=== PATIENT | male | born 1950 | race Caucasian/White ===

== ENCOUNTER 2018-10-10 13:04 | Inpatient (IN) ==
--- NOTE | 2018-10-10 13:23 | ED ---
HPI General Chief Complaint: Hypertension Stated Complaint: neck/back pain Time Seen by Provider: 10/10/18 13:20 Source: patient Mode of arrival: ambulatory Limitations: no limitations History of Present Illness HPI Narrative: Patient comes in complaining of upper back pain between his shoulder blades that he rates at about a 3 out of 10 states there is a dull sensation. Patient states that he has started working out and thinks that maybe he worked out too hard. However his major concern is his blood pressure has been elevated 201 systolic over the last day or so.... despite amlodipine and lisinopril. pcp is dr fabrice talbot. Complaint: Reports back pain Related Data Home Medications Medication Instructions Recorded Confirmed amlodipine 5 mg PO HS 10/10/18 10/10/18 pravastatin 40 mg PO HS 10/10/18 10/10/18 Allergies Allergy/AdvReac Type Severity Reaction Status Date / Time No Known Allergies Allergy Verified 10/10/18 13:20 Review of Systems ROS: all other systems reviewed are negative PMFSH History History Provided By: Patient Medical History Medical History Hypertension (Acute) Social History Social History Substance History: No History of Abuse Second Hand Smoke Exposure: No Smoking Status: Former smoker How Often Do You Have a Drink Containing Alcohol: Never Recent Travel in [facility] within the Last 8 Weeks: No Recent Out of Country Travel within the Last 8 Weeks: No Exam Narrative Exam Narrative: GENERAL: Obese elderly male patient in no apparent distress. SKIN: Warm and dry. HEAD: Atraumatic. Normocephalic. EYES: Pupils equal and round. No scleral icterus. No injection or drainage. ENT: No nasal bleeding or discharge. Mucous membranes pink and moist. NECK: Trachea midline. No JVD. CARDIOVASCULAR: Regular rate and rhythm. no rubs or gallops RESPIRATORY: No accessory muscle use. Clear to auscultation. Breath sounds equal bilaterally. GASTROINTESTINAL: Abdomen soft, non-tender, nondistended. No rebound or guarding MUSCULOSKELETAL: Extremities without clubbing, cyanosis, or edema. No obvious deformities. Nonreproducible upper back discomfort, with palpation and or active and passive range of motion NEUROLOGICAL: Awake and alert. No obvious cranial nerve deficits. Motor grossly within normal limits. Five out of 5 muscle strength in the arms and legs. Normal speech. PSYCHIATRIC: Appropriate mood and affect; insight and judgment normal. Course Initial Documented Vital Signs Temperature 97.4 F L 10/10/18 13:12 Pulse Rate 77 10/10/18 13:12 Respiratory Rate 16 10/10/18 13:12 Blood Pressure 201/98 H 10/10/18 13:12 Pulse Oximetry 94 L 10/10/18 13:12 Last Documented Vital Signs Temperature 97.4 F L 10/10/18 13:12 Pulse Rate 70 10/10/18 17:16 Respiratory Rate 18 10/10/18 17:16 Blood Pressure 147/93 H 10/10/18 17:16 Pulse Oximetry 95 10/10/18 17:16 Medical Decision Making MDM Narrative Medical decision making narrative: The patient was seen as part of the RMA process by my attending physician, Dr. Cody. I, DERRICK Gonzalez, have reviewed Dr. Cody's note, recommended plan of care and disposition. CBC unremarkable. CMP unremarkable. Troponin 0.20. Thoracic aorta CT negative. Patient provided a copy of the CT report. Call placed for patient admission. I spoke with Dr. Shen and report given for patient admission. Medical Screen Exam Complete: Yes Emergency Medical Condition: Yes Lab Data Result diagrams: 10/10/18 13:33 10/10/18 13:33 Lab Results 10/10/18 10/10/18 10/10/18 Range/Units 13:33 13:33 13:33 WBC 5.8 (4.0-11.0) th/mm3 RBC 5.26 (4.50-5.90) mil/mm3 Hgb 16.5 (13.0-17.0) gm/dL POC Hgb (Calc) 16.3 (13.0-17.0) g/dL Hct 47.6 (39.0-51.0) % POC Hct 48.0 (39-51.0) % MCV 90.5 (80.0-100.0) fL MCH 31.4 (27.0-34.0) pg MCHC 34.6 (32.0-36.0) % RDW 13.6 (11.6-17.2) % Plt Count 185 (150-450) th/mm3 MPV 7.6 (7.0-11.0) fL Neut % (Auto) 65.2 (16.0-70.0) % Lymph % (Auto) 21.5 (9.0-44.0) % Jackson % (Auto) 9.8 H (0.0-8.0) % Eos % (Auto) 2.5 (0.0-4.0) % Baso % (Auto) 1.0 (0.0-2.0) % Neut # (Auto) 3.8 (1.8-7.7) th/mm3 Lymph # (Auto) 1.2 (1.0-4.8) th/mm3 Jackson # (Auto) 0.6 (0.0-0.9) th/mm3 Eos # (Auto) 0.1 (0.0-0.4) th/mm3 Baso # (Auto) 0.1 (0.0-0.2) th/mm3 WBC Differential . Differential Comment Auto diff final POC Sodium 144 (137-144) mmol/L Sodium 142 (136-145) meq/L POC Potassium 4.4 (3.6-5.0) mmol/L Potassium 4.4 (3.5-5.1) meq/L POC Chloride 106 (102-111) mmol/L Chloride 110 H (98-107) meq/L Carbon Dioxide 26.0 (21.0-32.0) meq/L Anion Gap 6 (5-15) meq/L POC BUN 19 (5-21) mg/dL BUN 17 (7-18) mg/dL Creatinine 0.89 (0.60-1.30) mg/dL POC Creatinine 0.8 (0.6-1.3) mg/dL Estimated GFR 85 L (>89) mL/min POC Glucose 148 H (68-110) mg/dL Random Glucose 146 H (74-106) mg/dL Calcium 8.7 (8.5-10.1) mg/dL Total Bilirubin 0.6 (0.2-1.0) mg/dL AST 34 (15-37) U/L ALT 35 (12-78) U/L Alkaline Phosphatase 92 (45-117) U/L Troponin I 0.20 H (0.02-0.05) ng/mL Total Protein 7.8 (6.4-8.2) g/dL Albumin 4.4 (3.4-5.0) g/dL Imaging Data Radiologist's impression: Thoracic Aorta CT 10/10/18 13:20 CONCLUSION: Negative study ECG Data EKG Prior to Arrival: No Attestation: I personally reviewed and interpreted this ECG as follows: Prior ECG tracings: not available for review Interpretation: Normal sinus rhythm, 76 bpm, QRS of 146 which is prolonged, right bundle branch block pattern. Discharge Plan Discharge Disposition Patient Disposition: ED Admit(ED Internal Use Only) Discharge Condition Condition: Stable Discharge Order Discharge Orders: ED Use Only Admit Order (Routine); Ordered 10/10/18 Ordered By: Dina Nova Discharge Details Diagnosis: Elevated troponin Physicians Team ED Provider: Zeeshan Cody ED Midlevel Provider: Dina Nova Primary Care Provider: Gordon Talbot V Attending Provider: Mallika Shen Other Providers: Giovanny Berry ED Status: Admitted Observation Patient
[2018-10-10 13:53] LABS: Baso # (Auto) 0.1 th/mm3 (0.0-0.2); Eos # (Auto) 0.1 th/mm3 (0.0-0.4); Eos % (Auto) 2.5 % (0.0-4.0); Hematocrit 47.6 % (39.0-51.0); Hemoglobin 16.5 gm/dL (13.0-17.0); Lymph # (Auto) 1.2 th/mm3 (1.0-4.8); Lymph % (Auto) 21.5 % (9.0-44.0); Mean Corpuscular HGB Conc 34.6 % (32.0-36.0); Mean Corpuscular Hemoglobin 31.4 pg (27.0-34.0); Mean Corpuscular Volume 90.5 fL (80.0-100.0); Mean Platelet Volume 7.6 fL (7.0-11.0); Mono # (Auto) 0.6 th/mm3 (0.0-0.9); Mono % (Auto) 9.8 % (0.0-8.0); Neut # (Auto) 3.8 th/mm3 (1.8-7.7); Neut % (Auto) 65.2 % (16.0-70.0); Platelet Count 185 th/mm3 (150-450); Red Blood Count 5.26 mil/mm3 (4.50-5.90); Red Cell Distribution Width 13.6 % (11.6-17.2); White Blood Count 5.8 th/mm3 (4.0-11.0)
[2018-10-10 14:16] LABS: Alanine Aminotransferase 35 U/L (12-78); Albumin 4.4 g/dL (3.4-5.0); Anion Gap 6 meq/L (5-15); Aspartate Aminotransferase 34 U/L (15-37); Blood Urea Nitrogen 17 mg/dL (7-18); Calcium 8.7 mg/dL (8.5-10.1); Chloride 110 meq/L (98-107); Glomerular Filtration Rate 85 mL/min (>89); Glucose,Random 146 mg/dL (74-106); Sodium 142 meq/L (136-145)
[2018-10-10 14:18] LABS: Potassium 4.4 meq/L (3.5-5.1)
[2018-10-10 14:20] LABS: Alkaline Phosphatase 92 U/L (45-117); Total Protein 7.8 g/dL (6.4-8.2)
--- NOTE | 2018-10-10 15:18 | CT ---
EXAM DATE: 10/10/2018 3:12 PM EST AGE/SEX: 68 years / Male INDICATIONS: Upper back pain. CLINICAL DATA: This is the patient's initial encounter. Patient reports that signs and symptoms have been present for 1 day and indicates a pain score of 6/10. MEDICAL/SURGICAL HISTORY: None. None. RADIATION DOSE: 17.14 CTDI (mGy) COMPARISON: No prior exams available for comparison. TECHNIQUE: Volumetric scanning was performed using a multi-row detector CT scanner during bolus infu violette of 99 ml Omnipaque 350 (iohexol) nonionic water-soluble contrast as a single exam dose. The da ta was post processed with a variety of visualization algorithms including full volume maximum intens ity projection, multi-planar sliding thin slab reformation, curved planar reformation, and surface re ndering techniques. Using automated exposure control and adjustment of the mA and/or kV according to patient size, radiation dose was kept as low as reasonably achievable to obtain optimal diagnostic q uality images. DICOM format image data is available electronically for review and comparison. FINDINGS: The thoracic aorta is normal in caliber and appearance throughout with no evidence of stenosis, aneur ysm or dissection. Classical three-vessel arch branching anatomy is identified in the arch vessels ar e widely patent. In the abdomen, the aorta is widely patent and the visceral vessels are intact. Spec ifically, the celiac, SMA, renal arteries and RACHANA are patent. In the pelvis, the iliacs are widely pa tent. Hypogastrics are patent bilaterally. The common femorals are healthy in appearance and the visu alized proximal thigh vessels are intact. The lungs are symmetrically aerated and focally clear. In the abdomen, the liver, spleen, pancreas, and adrenals and kidneys are benign in appearance. The b owel structures are nondilated. There is no evidence of retroperitoneal mass or adenopathy. In the pelvis, no mass, adenopathy or free fluid is identified. There is diverticular involvement of the distal colon without inflammatory changes. Urinary bladder is unremarkable. Inguinal regions are clear. CONCLUSION: Negative study Electronically signed by: Jeffrey Guzman MD Board Certified Radiologist 10/10/2018 3:16 PM EST
--- NOTE | 2018-10-10 16:27 | P.HPIM ---
History of Present Illness Primary Care Physician: Gordon Nazario MD History of Present Illness: This patient is a 68 y/o Male with a dx of HTN, DLD , obesity who presents to the ED with complaints of upper back pain between his shoulder blades that he rates a 3/10. He says that he started working out recently and thought the pain was because of the exercise. He says his blood pressure was elevated systolic slightly above 200 while he was at home. Denies any sob, no nausea or vomitng. No abd pain. No other complaints. He says the main reason he came in was because of the elevated blood pressure. PMH HTN, DLD Fam Hx cabg in his father in his 60s, mother had cabg in her 80s Social hx smoked 3 ppd for 6 yrs then quit 40 yrs ago, ETOH rarely, no hx of drug use Surg hx none Review of Systems Review of Systems: all other systems reviewed are negative [facility] Medical History Medical History Hypertension (Acute) Social History Social History Substance History: No History of Abuse Second Hand Smoke Exposure: No Smoking Status: Former smoker How Often Do You Have a Drink Containing Alcohol: Never Recent Travel in [place] within the Last 8 Weeks: No Recent Out of Country Travel within the Last 8 Weeks: No Immunization History Tetanus Immunization: Unsure Medications and Allergies Allergies Allergy/AdvReac Type Severity Reaction Status Date / Time No Known Allergies Allergy Verified 10/10/18 13:20 Home Medications Medication Instructions Recorded Confirmed Type amlodipine 5 mg PO DAILY 10/10/18 10/10/18 History pravastatin 40 mg PO DAILY 10/10/18 10/10/18 History Active Medications: Active Medications Aspirin (Aspirin Chew) 81 mg PO DAILY CHIIKS Nitroglycerin (Nitrostat Sl) 0.4 mg SL Q5M PRN PRN Reason: CHEST PAIN Sodium Chloride (Ns Flush) 2 ml IV.FLUSH UNSCH PRN PRN Reason: FLUSH AFTER USING IV ACCESS Last Admin: 10/10/18 13:56 Dose: 2 ml Physical Exam Vital signs: Vital Signs 10/10/18 13:12 10/10/18 13:29 10/10/18 13:45 Temperature 97.4 F L Pulse Rate 77 Respiratory Rate 16 Blood Pressure 201/98 H 144/96 H 175/98 H Pulse Oximetry 94 L 10/10/18 13:46 10/10/18 15:10 Temperature Pulse Rate 72 Respiratory Rate 18 Blood Pressure 182/102 H 168/96 H Pulse Oximetry 95 Intake & Output 10/09/18 10/10/18 10/10/18 18:59 06:59 18:59 Weight 129.727 kg Narrative: alert and oriented x 3 S1S2 Cta b/l no abd pain, soft, normal bowel sounds complains of some pain between his shoulder blades, dull muscular pain. no edema of exts No neuro deficits Results Labs CBC & Chem 7: 10/10/18 13:33 10/10/18 13:33 Imaging Impressions Thoracic Aorta CT 10/10/18 13:20 CONCLUSION: Negative study Caprini VTE Risk Assessment Caprini VTE Risk Assessment: Moderate/High Risk (score >= 2) Caprini Risk Assessment Model: Point Value = 1 Point Value = 2 Point Value = 3 Point Value = 5 Age 41-60 Minor surgery BMI > 25 kg/m2 Swollen legs Varicose veins or History of unexplained or recurrent spontaneous Oral contraceptives or hormone replacement Sepsis (< 1 month) Serious lung disease, including pneumonia (< 1 month) Abnormal pulmonary function Acute myocardial infarction Congestive heart failure (< 1 month) History of inflammatory bowel disease Medical patient at bed rest Age 61-74 Arthroscopic surgery Major open surgery (> 45 min) Laparoscopic surgery (> 45 min) Malignancy Confined to bed (> 72 hours) Immobilizing plaster cast Central venous access Age >= 75 History of VTE Family history of VTE Factor V Leiden Prothrombin [id number] Lupus anticoagulant Anticardiolipin antibodies Elevated serum homocysteine Heparin-induced thrombocytopenia Other congenital or acquired thrombophilia Stroke (< 1 month) Elective arthroplasty Hip, pelvis, or leg fracture Acute spinal cord injury (< 1 month) Prophylaxis Regimen: Total Risk Factor Score Risk Level Prophylaxis Regimen 0-1 Low Early ambulation 2 Moderate Order ONE of the following: *Sequential Compression Device (SCD) *Heparin 5000 units SQ BID 3-4 Higher Order ONE of the following medications: *Heparin 5000 units SQ TID *Enoxaparin/Lovenox 40 mg SQ daily (WT < 150 kg, CrCl > 30 mL/min) *Enoxaparin/Lovenox 30 mg SQ daily (WT < 150 kg, CrCl > 10-29 mL/min) *Enoxaparin/Lovenox 30 mg SQ BID (WT < 150 kg, CrCl > 30 mL/min) AND/OR *Sequential Compression Device (SCD) 5 or more Highest Order ONE of the following medications: *Heparin 5000 units SQ TID (Preferred with Epidurals) *Enoxaparin/Lovenox 40 mg SQ daily (WT < 150 kg, CrCl > 30 mL/min) *Enoxaparin/Lovenox 30 mg SQ daily (WT < 150 kg, CrCl > 10-29 mL/min) *Enoxaparin/Lovenox 30 mg SQ BID (WT < 150 kg, CrCl > 30 mL/min) AND *Sequential Compression Device (SCD) Assessment and Plan Plan This patient is a 68 y/o Male with a dx of HTN, DLD, obesity who presents to the ED with complaints of upper back pain between his shoulder blades that he rates a 3/10. He says that he started working out recently and thought the pain was because of the exercise. He says his blood pressure was elevated systolic slightly above 200 while he was at home. 1. Elevated troponin Patient has some scapular pain after working out a couple of days ago CT chest, no dissection Trops slightly elevated 0.2, Follow up two more sets EKG shows rbbb, no st or t wave changes, nsr Patient received asa in the ED, continue statin, bb Continue asa daily. Follow up repeat trop, if elevated will start heparin gtt. Cardiology consulted. Will follow up their recs 2. Accelerated HTN SBP slightly above 200 at home Received vasotec here in the ED, bp better controlled Continue to monitor. Cont norvasc, bb 3. DMII Newly dx diabetes over the past few weeks Start low dose sliding scale Monitor accu checks q ac hs. SCDs for dvt prophylaxis.
[2018-10-10] MEDS ORDERED: Dextrose 50% in Water 50 ML Vial IV.PUSH PRN (16:40)
[2018-10-10] MEDS: Insulin NovoLOG Aspart Correctional Sugar Inj SQ SCH ×2 (17:09→21:39)
[2018-10-10] MEDS: Sod Chloride 0.9% Inj 1,000 ML IV.CONT SCH (17:17)
[2018-10-10 20:51] LABS: Troponin I 0.66 ng/mL (0.02-0.05)
[2018-10-10] MEDS ORDERED: Heparin 10,000 UNITS/10 ML Vial (for IV use) IV.PUSH STA (21:01)
[2018-10-10] MEDS: Metoprolol Tartrate 25 MG Tablet PO SCH (21:06)
[2018-10-10] MEDS: Heparin Drip 25,000 UNIT/250 ML BAG IV.CONT PRN (21:46)
[2018-10-10 22:33] LABS: Activated Partial Thrombo Time 27.5 sec (23.4-31.7); Prothrombin Time 10.5 sec (9.8-11.6)
[2018-10-11 03:02] LABS: Hematocrit 44.6 % (39.0-51.0); Hemoglobin 15.1 gm/dL (13.0-17.0); Mean Corpuscular HGB Conc 33.9 % (32.0-36.0); Mean Corpuscular Volume 91.4 fL (80.0-100.0); Mean Platelet Volume 7.9 fL (7.0-11.0); Platelet Count 179 th/mm3 (150-450); Red Blood Count 4.88 mil/mm3 (4.50-5.90); Red Cell Distribution Width 13.8 % (11.6-17.2)
[2018-10-11] MEDS ORDERED: Heparin 10,000 UNITS/10 ML Vial (for IV use) IV.PUSH PRN (03:02)
[2018-10-11 03:10] LABS: Activated Partial Thrombo Time 35.2 sec (23.4-31.7); Prothrombin Time 10.5 sec (9.8-11.6)
--- NOTE | 2018-10-11 03:18 | MB ---
cc: Giovanny Berry DO DATE: 10/10/2018 REASON FOR CONSULTATION: Elevated troponin. HISTORY OF PRESENT ILLNESS: Chaparro Buck is a pleasant 68-year-old male who presented to [facility] due to upper back pain as well as hypertension. He has recently started working out. During his workout, he started noticing pain across the upper part of his back. He believes that this is due to how he was working out as he was using a machine that works his back. Apparently, this morning, he was not feeling well and started taking his blood pressure and noticed that it was 220/120. He denies any chest pain, shortness of breath, nausea or vomiting. He continued to watch his blood pressure and as it stayed over 200 systolically, he decided to come to the emergency room. On arrival, he was found to be hypertensive with a blood pressure of 201/98. Blood work was sent and he was found to have a troponin of 0.12. Because of this, I was asked to see him. In seeing him, he denies current chest pain or shortness of breath. PAST MEDICAL HISTORY: 1. Hypertension. 2. DLD. PAST SURGICAL HISTORY: Denies. ALLERGIES: NO KNOWN DRUG ALLERGIES. MEDICATIONS: 1. Norvasc 5 mg every night. 2. Pravastatin 40 mg every night. FAMILY HISTORY: Father had a CABG in his 60s. Mother had a CABG in her 80s. SOCIAL HISTORY: The patient smoked 3 packs a day for 6 years, then quit 40 years ago. He rarely drinks alcohol. Denies drug abuse. REVIEW OF SYSTEMS: Fourteen systems were reviewed including osteopathic. Pertinent positives and negatives above, otherwise negative. PHYSICAL EXAMINATION: VITAL SIGNS: Temperature 97.4, heart rate 72, blood pressure 168/96, respirations 18, pulse oximetry 95% on room air. GENERAL: The patient appears well, in no acute distress, alert, awake and oriented x 3. HEENT: Extraocular muscles intact. Mucous membranes moist. NECK: Supple. No JVD at 45 degrees. No carotid bruits heard bilaterally. Carotid upstroke is brisk in nature. HEART: Regular rate and rhythm. Positive first and second heart sound with a I/ decrescendo mid peaking to the right sternal border. LUNGS: Clear to auscultation bilaterally. No wheezes, rales or rhonchi. ABDOMEN: Soft, nontender, nondistended. No organomegaly noted. EXTREMITIES: Show no clubbing, cyanosis or edema. Femoral and distal pulses are intact bilaterally. NEUROLOGIC: No focal deficits. SKIN: Warm, dry and intact. OSTEOPATHIC: No kyphoscoliosis, lordosis or paraspinal tender points. LABORATORY DATA: Hemoglobin 16.5, hematocrit 47.6, platelets 185. Potassium 4.4, BUN 17, creatinine 0.89. Troponin 0.20. Electrocardiogram (10/10/2018 at 1353 hours): Sinus rhythm, right bundle branch block. IMPRESSIONS: 1. Upper back pain, most likely musculoskeletal in nature. 2. Hypertensive urgency. 3. Elevated troponin. 4. Remote history of tobacco. RECOMMENDATIONS: 1. Mr. Buck presented with upper back pain, which is most likely musculoskeletal in nature due to recent workout. Overall, I do not believe that this is atypical angina. 2. He does have a minimally elevated troponin and this is possibly due to his hypertensive urgency with a blood pressure of 220/120 at home. 3. We will continue to follow his troponins and if they stay relatively flat, we will plan on doing an echocardiogram and stress test in the morning. 4. If his troponins elevate, then due to his multiple risk factors, I would recommend cardiac catheterization as well as echocardiogram for further evaluation. 5. He will ultimately need further blood pressure control. 6. Further recommendations will be made based on the hospital course. Thank you for allowing me to see Chaparro Buck. If there are any questions, please do not hesitate to call. DO GUY Andujar/rw , 01:37 AM , 01:47 AM
[2018-10-11 03:23] LABS: Calcium 8.6 mg/dL (8.5-10.1); Carbon Dioxide 27.9 meq/L (21.0-32.0); Magnesium 2.4 mg/dL (1.5-2.5); Potassium 4.1 meq/L (3.5-5.1)
[2018-10-11 03:30] LABS: Troponin I 1.83 ng/mL (0.02-0.05)
[2018-10-11] MEDS: Heparin 10,000 UNITS/10 ML Vial (for IV use) IV.PUSH PRN ×3 (04:15→21:06)
[2018-10-11] MEDS: Sod Chloride 0.9% Inj 1,000 ML IV.CONT SCH ×3 (04:16→23:07)
[2018-10-11] MEDS: Insulin NovoLOG Aspart Correctional Sugar Inj SQ SCH ×4 (09:15→20:46)
[2018-10-11] MEDS: Metoprolol Tartrate 25 MG Tablet PO SCH ×2 (09:15→20:44)
[2018-10-11] MEDS: amLODIPine 5 MG Tablet PO SCH (09:15)
--- NOTE | 2018-10-11 11:25 | ECG ---
Date Performed: 10/11/2018 Time Performed: 01:08:38 PTAGE: 68 years EKG: Sinus rhythm Right bundle branch block Inferior T wave changes are nonspecific Low QRS voltages in precordial nicolás ds Abnormal ECG PREVIOUS TRACING : 10/10/2018 19.17 DOCTOR: Luis Alberto Melgar Interpretating Date/Time 10/11/2018 11:25:00
--- NOTE | 2018-10-11 11:31 | ECG ---
Date Performed: 10/10/2018 Time Performed: 19:17:08 PTAGE: 68 years EKG: Sinus rhythm WITH SINUS ARRHYTHMIA RIGHT BUNDLE BRANCH BLOCK ABNORMAL ECG PREVIOUS TRACING : 10/10/2018 13.53 DOCTOR: Luis Alberto Melgar Interpretating Date/Time 10/11/2018 11:27:03
--- NOTE | 2018-10-11 11:39 | ECG ---
Date Performed: 10/10/2018 Time Performed: 13:53:20 PTAGE: 68 years EKG: Sinus rhythm RIGHT BUNDLE BRANCH BLOCK ABNORMAL ECG PREVIOUS TRACING : 01/12/2003 09.10 DOCTOR: Luis Alberto Melgar Interpretating Date/Time 10/11/2018 11:32:02
--- NOTE | 2018-10-11 14:29 | P.PNIM ---
Subjective Interval history: Patient remains free of chest pain, troponins are elevated. He has a strong family history of cardiovascular disease, both parents underwent CABG, mother in her 60s, father in his 70s.. Physical Exam Vital signs: Vital Signs 10/10/18 15:10 10/10/18 17:16 10/10/18 19:16 Temperature Pulse Rate 72 70 78 Respiratory Rate 18 18 18 Blood Pressure 168/96 H 147/93 H 164/82 H Pulse Oximetry 95 95 97 10/10/18 23:51 10/10/18 23:57 10/11/18 00:00 Temperature 98.6 F 98.6 F Pulse Rate 72 72 72 Respiratory Rate 20 20 Blood Pressure 135/71 135/71 Pulse Oximetry 93 L 93 L 10/11/18 01:00 10/11/18 02:00 10/11/18 03:00 Temperature Pulse Rate 70 73 77 Respiratory Rate Blood Pressure Pulse Oximetry 10/11/18 04:00 10/11/18 04:57 10/11/18 06:00 Temperature 98.4 F Pulse Rate 81 79 75 Respiratory Rate 18 Blood Pressure 129/79 Pulse Oximetry 94 L 10/11/18 07:00 10/11/18 08:00 10/11/18 11:00 Temperature 97.8 F Pulse Rate 67 94 H 79 Respiratory Rate 16 Blood Pressure 162/86 H Pulse Oximetry 94 L 10/11/18 12:00 Temperature 98.4 F Pulse Rate 81 Respiratory Rate 16 Blood Pressure 147/92 H Pulse Oximetry 97 Intake & Output 10/10/18 10/11/18 10/11/18 18:59 06:59 18:59 Intake Total 1240 / 1240 1240 / 1240 Output Total 500 / 500 Balance 740 / 740 1240 / 1240 Weight 129.727 kg 132 kg Intake: IV 1000 / 1000 1000 / 1000 NS Inj 1,000 ML @ 100 mls/hr IV 1000 / 1000 1000 / 1000 .CONT .Q10H CHIKIS Rx#:[id number] Oral 240 / 240 240 / 240 Output: Urine 500 / 500 Other: Date of Last Bowel Movement 10/10/18 # Bowel Movements 0 Weight On Admission 129.272 kg Narrative: GENERAL: AAOx3, no acute distress, obese SKIN: Warm and dry. No rashes HEAD: Atruamtic, normocephalic. EYES: No scleral icterus. No injection or drainage. ENT: Moist mucous membranes, patent nares, no erythema of oropharynx. NECK: Supple, trachea midline. No JVD or lymphadenopathy. Normal thyroid. CARDIOVASCULAR: Regular rate and rhythm. No murmurs, gallops, or rubs. RESPIRATORY: Breath sounds clear equal bilaterally. No crackles or wheezes. No accessory muscle use. GASTROINTESTINAL: Abdomen soft, non-tender, nondistended, normal active bowel sounds MUSCULOSKELETAL: No cyanosis, or edema. NEURO: CN II-XII grossly intact, no focal deficits, no slurring of speech Results Labs CBC & Chem 7: 10/11/18 02:46 10/11/18 02:46 Imaging Imaging: Impressions Thoracic Aorta CT 10/10/18 13:20 CONCLUSION: Negative study Assessment and Plan Plan This patient is a 68 y/o Male with a dx of HTN, DLD, obesity who presents to the ED with complaints of upper back pain between his shoulder blades that he rates a 3/10. He says that he started working out recently and thought the pain was because of the exercise. He says his blood pressure was elevated systolic slightly above 200 while he was at home. Elevated troponin Patient has some scapular pain, but this may be musculoskeletal CT chest showed no dissection Troponin trended upwards to maximum of 1.83 EKG shows rbbb, no st or t wave changes, nsr Continue treatment with statin and beta-day, ASA Continue heparin drip Cardiology recommended further workup if troponins became elevated, which they did Possible heart catheterization in morning, will keep patient n.p.o. after midnight Appreciate cardiology consult Accelerated HTN SBP slightly above 200 at home Received vasotec in the ED, BP improved Continue Norvasc and beta-day Continue telemetry Type 2 diabetes Accu-Cheks with sliding scale insulin coverage Diabetic diet DVT prophylaxis SCDs Progress Note: Quality VTE Deep Vein Thrombosis/Pulmonary Embolism Present on Admission: No
--- NOTE | 2018-10-11 16:02 | P.PNCA ---
Subjective Interval history: No chest pain No upper back pain Medications and Allergies Active Medications: Active Medications Amlodipine Besylate (Norvasc) 5 mg PO DAILY [facility] Last Admin: 10/11/18 09:15 Dose: 5 mg Aspirin (Aspirin Chew) 81 mg PO DAILY [facility] Last Admin: 10/11/18 09:15 Dose: 81 mg Atorvastatin Calcium (Lipitor) 40 mg PO HS [facility] Last Admin: 10/10/18 21:06 Dose: 40 mg Dextrose (D50w Vial) 50 ml IV.PUSH UNSCH PRN PRN Reason: PER HYPOGLYCEMIA PROTOCOL Glucagon (Glucagon Inj) 1 mg OTHER PRN PRN PRN Reason: for Hypoglycemia Protocol Heparin Sodium (Porcine) (Heparin Inj) 2,500 units IV.PUSH UNSCH PRN PRN Reason: aPTT 25-39 Last Admin: 10/11/18 13:09 Dose: 2,500 units Heparin Sodium (Porcine) (Heparin Inj) 5,000 units IV.PUSH UNSCH PRN PRN Reason: aPTT < 25 Sodium Chloride (Ns Inj) 1,000 mls @ 100 mls/hr IV.CONT .Q10H [facility] Last Admin: 10/11/18 12:28 Dose: Not Given Heparin Sodium/Dextrose (Heparin/D5w 25,000 U/250 Ml) 25,000 unit in 250 mls @ 10 mls/hr IV.CONT TITRATE PRN; Protocol PRN Reason: Per Protocol Last Titration: 10/11/18 13:10 Dose: 1,200 units/hr, 12 mls/hr Insulin Aspart (Novolog Insulin Correctional Sugar Inj) 0 unit SQ ACHS [facility]; Protocol Last Admin: 10/11/18 11:57 Dose: Not Given Metoprolol Tartrate (Lopressor) 12.5 mg PO BID [facility] Last Admin: 10/11/18 09:15 Dose: 12.5 mg Nitroglycerin (Nitrostat Sl) 0.4 mg SL Q5M PRN PRN Reason: CHEST PAIN Last Admin: 10/10/18 21:11 Dose: 0.4 mg Nitroglycerin (Nitro-Bid 2% Oint) 1 inch TOPICAL Q6HR [facility] Last Admin: 10/11/18 11:56 Dose: 1 inch Sodium Chloride (Ns Flush) 2 ml IV.FLUSH UNSCH PRN PRN Reason: FLUSH AFTER USING IV ACCESS Last Admin: 10/10/18 13:56 Dose: 2 ml Allergies Allergy/AdvReac Type Severity Reaction Status Date / Time No Known Allergies Allergy Verified 10/10/18 13:20 Home Medications Medication Instructions Recorded Confirmed Type amlodipine 5 mg PO HS 10/10/18 10/10/18 History pravastatin 40 mg PO HS 10/10/18 10/10/18 History Physical Exam Vital signs: Vital Signs 10/10/18 17:16 10/10/18 19:16 10/10/18 23:51 Temperature 98.6 F Pulse Rate 70 78 72 Respiratory Rate 18 18 20 Blood Pressure 147/93 H 164/82 H 135/71 Pulse Oximetry 95 97 93 L 10/10/18 23:57 10/11/18 00:00 10/11/18 01:00 Temperature 98.6 F Pulse Rate 72 72 70 Respiratory Rate 20 Blood Pressure 135/71 Pulse Oximetry 93 L 10/11/18 02:00 10/11/18 03:00 10/11/18 04:00 Temperature 98.4 F Pulse Rate 73 77 81 Respiratory Rate 18 Blood Pressure 129/79 Pulse Oximetry 94 L 10/11/18 04:57 10/11/18 06:00 10/11/18 07:00 Temperature Pulse Rate 79 75 67 Respiratory Rate Blood Pressure Pulse Oximetry 10/11/18 08:00 10/11/18 11:00 10/11/18 12:00 Temperature 97.8 F 98.4 F Pulse Rate 94 H 79 81 Respiratory Rate 16 16 Blood Pressure 162/86 H 147/92 H Pulse Oximetry 94 L 97 Intake & Output 10/10/18 10/11/18 10/11/18 18:59 06:59 18:59 Intake Total 1240 / 1240 1240 / 1240 Output Total 500 / 500 Balance 740 / 740 1240 / 1240 Weight 129.727 kg 132 kg Intake: IV 1000 / 1000 1000 / 1000 NS Inj 1,000 ML @ 100 mls/hr IV 1000 / 1000 1000 / 1000 .CONT .Q10H [facility] Rx#:[id number] Oral 240 / 240 240 / 240 Output: Urine 500 / 500 Other: Date of Last Bowel Movement 10/10/18 # Bowel Movements 0 Weight On Admission 129.272 kg Narrative: GENERAL: NAD, AAOx3 SKIN: Warm and dry. HEAD: Atraumatic. Normocephalic. EYES: Pupils equal and round. No scleral icterus. No injection or drainage. ENT: No nasal bleeding or discharge. Mucous membranes pink and moist. NECK: Trachea midline. No JVD. CARDIOVASCULAR: Regular rate and rhythm. RESPIRATORY: No accessory muscle use. Clear to auscultation. Breath sounds equal bilaterally. GASTROINTESTINAL: Abdomen soft, non-tender, nondistended. Hepatic and splenic margins not palpable. MUSCULOSKELETAL: Extremities without clubbing, cyanosis, or edema. No obvious deformities. NEUROLOGICAL: Awake and alert. No obvious cranial nerve deficits. Motor grossly within normal limits. Five out of 5 muscle strength in the arms and legs. Normal speech. PSYCHIATRIC: Appropriate mood and affect; insight and judgment normal. Results 10/11/18 02:46 10/11/18 02:46 Cardiac Enzymes 10/10/18 10/10/18 10/11/18 Range/Units 13:33 19:15 02:46 AST 34 (15-37) U/L Troponin I 0.20 H 0.66 H* 1.83 H* (0.02-0.05) ng/mL Coagulation 10/10/18 10/11/18 10/11/18 Range/Units 21:51 02:46 10:31 PT 10.5 10.5 (9.8-11.6) sec APTT 27.5 35.2 H D 31.3 (23.4-31.7) sec CBC 10/10/18 10/11/18 Range/Units 13:33 02:46 WBC 5.8 7.0 (4.0-11.0) th/mm3 RBC 5.26 4.88 (4.50-5.90) mil/mm3 Hgb 16.5 15.1 (13.0-17.0) gm/dL Hct 47.6 44.6 (39.0-51.0) % Plt Count 185 179 (150-450) th/mm3 Neut # (Auto) 3.8 (1.8-7.7) th/mm3 Lymph # (Auto) 1.2 (1.0-4.8) th/mm3 Dawson # (Auto) 0.6 (0.0-0.9) th/mm3 Eos # (Auto) 0.1 (0.0-0.4) th/mm3 Baso # (Auto) 0.1 (0.0-0.2) th/mm3 Comprehensive Metabolic Panel 10/10/18 10/11/18 Range/Units 13:33 02:46 Sodium 142 145 (136-145) meq/L Potassium 4.4 4.1 (3.5-5.1) meq/L Chloride 110 H 112 H (98-107) meq/L Carbon Dioxide 26.0 27.9 (21.0-32.0) meq/L BUN 17 21 H (7-18) mg/dL Creatinine 0.89 0.99 (0.60-1.30) mg/dL Calcium 8.7 8.6 (8.5-10.1) mg/dL AST 34 (15-37) U/L ALT 35 (12-78) U/L Alkaline Phosphatase 92 (45-117) U/L Total Protein 7.8 (6.4-8.2) g/dL Albumin 4.4 (3.4-5.0) g/dL Intake and Output 10/11/18 10/11/18 10/11/18 06:59 14:59 22:59 Intake Total 1240 / 1240 1240 / 1240 Output Total 500 / 500 Balance 740 / 740 1240 / 1240 Intake: IV 1000 / 1000 1000 / 1000 NS Inj 1,000 ML @ 100 mls/hr IV 1000 / 1000 1000 / 1000 .CONT .Q10H [facility] Rx#:[id number] Oral 240 / 240 240 / 240 Output: Urine 500 / 500 Other: Date of Last Bowel Movement 10/10/18 10/10/18 # Bowel Movements 0 Weight 132 kg - Imaging and Cardiology Imaging: Impressions Thoracic Aorta CT 10/10/18 13:20 CONCLUSION: Negative study Assessment and Plan - Assessment (1) NSTEMI (non-ST elevated myocardial infarction) Code(s): I21.4 - Non-ST elevation (NSTEMI) myocardial infarction Status: Acute (2) Hypertensive urgency Code(s): I16.0 - Hypertensive urgency Status: Acute - Plan 1) NSTEMI Troponins significantly elevated Plan for cardiac catheterization on Saturday Risks, benefits and alternatives discussed with patient 2) 2D echo pending 3) DM 4) HTN urgency on arrival Blood pressure some what better controlled
[2018-10-11] MEDS: Heparin Drip 25,000 UNIT/250 ML BAG IV.CONT PRN (17:03)
--- NOTE | 2018-10-11 17:35 | ECHRPT ---
Indication: coronary atherosclerosis CONCLUSIONS Normal left ventricular size. Wall thickness is normal. The left ventricular systolic function is normal with an estimated ejection fraction in the range of 55-60%. Mitral annular calcification is present. Aortic valve sclerosis is present. Trace aortic valve regurgitation. The estimated pulmonary arterial pressure is 25 mmHg. BP: / HR: Rhythm: MEASUREMENTS (Male / Female) Normal Values Technical Quality: 2D ECHO LV Diastolic Diameter PLAX 4.9 cm 4.2 - 5.9 / 3.9 - 5.3 cm LV Systolic Diameter PLAX 3.6 cm IVS Diastolic Thickness 1.3 cm 0.6 - 1.0 / 0.6 - 0.9 cm LVPW Diastolic Thickness 0.7 cm 0.6 - 1.0 / 0.6 - 0.9 cm LV Relative Wall Thickness 0.4 RV Internal Dim ED PLAX 2.3 cm LA Systolic Diameter LX 3.9 cm 3.0 - 4.0 / 2.7 - 3.8 cm DOPPLER Mitral E Point Velocity 99.9 cm/s Mitral A Point Velocity 127.0 cm/s Mitral E to A Ratio 0.8 TR Peak Velocity 194.0 cm/s TR Peak Gradient 15.1 mmHg Right Atrial Pressure 10.0 mmHg Pulmonary Artery Systolic Pressu 25.1 mmHg Right Ventricular Systolic Press 25.1 mmHg FINDINGS LEFT VENTRICLE Normal left ventricular size. Wall thickness is normal. The left ventricular systolic function is normal with an estimated ejection fraction in the range of 55-60%. RIGHT VENTRICLE Normal right ventricular size and systolic function. LEFT ATRIUM The left atrial size is normal. RIGHT ATRIUM The right atrial size is normal. ATRIAL SEPTUM Normal atrial septal thickness without atrial level shunting by limited color doppler interrogation. AORTA The aortic root and proximal ascending aorta are normal in size on limited imaging. MITRAL VALVE Mitral annular calcification is present. AORTIC VALVE Aortic valve sclerosis is present. Trace aortic valve regurgitation. TRICUSPID VALVE The estimated pulmonary arterial pressure is 25 mmHg. PULMONARY VALVE No pulmonary valve regurgitation or stenosis. VESSELS The inferior vena cava is normal in size. PERICARDIUM No pericardial effusion. Luis Alberto Melgar MD, FACC (Electronically Signed) Final Date:11 October 2018 17:34
[2018-10-12 02:01] LABS: Hematocrit 42.1 % (39.0-51.0); Hemoglobin 14.9 gm/dL (13.0-17.0); Mean Corpuscular HGB Conc 35.3 % (32.0-36.0); Mean Corpuscular Hemoglobin 31.8 pg (27.0-34.0); Mean Platelet Volume 7.3 fL (7.0-11.0); Platelet Count 177 th/mm3 (150-450); Red Blood Count 4.68 mil/mm3 (4.50-5.90); Red Cell Distribution Width 13.4 % (11.6-17.2); White Blood Count 6.9 th/mm3 (4.0-11.0)
[2018-10-12 02:23] LABS: Calcium 8.6 mg/dL (8.5-10.1); Carbon Dioxide 25.9 meq/L (21.0-32.0); Potassium 3.9 meq/L (3.5-5.1)
[2018-10-12] MEDS: amLODIPine 5 MG Tablet PO SCH (08:07)
[2018-10-12] MEDS: Metoprolol Tartrate 25 MG Tablet PO SCH ×2 (08:07→21:10)
[2018-10-12] MEDS: Insulin NovoLOG Aspart Correctional Sugar Inj SQ SCH ×4 (08:07→21:17)
[2018-10-12] MEDS: Sod Chloride 0.9% Inj 1,000 ML IV.CONT SCH ×2 (10:02→21:16)
--- NOTE | 2018-10-12 14:19 | P.PNCA ---
Subjective Interval history: No events overnight No chest pain Medications and Allergies Active Medications: Active Medications Amlodipine Besylate (Norvasc) 5 mg PO DAILY [facility] Last Admin: 10/12/18 08:07 Dose: 5 mg Aspirin (Aspirin Chew) 81 mg PO DAILY [facility] Last Admin: 10/12/18 08:07 Dose: 81 mg Atorvastatin Calcium (Lipitor) 40 mg PO HS [facility] Last Admin: 10/11/18 20:44 Dose: 40 mg Dextrose (D50w Vial) 50 ml IV.PUSH UNSCH PRN PRN Reason: PER HYPOGLYCEMIA PROTOCOL Glucagon (Glucagon Inj) 1 mg OTHER PRN PRN PRN Reason: for Hypoglycemia Protocol Heparin Sodium (Porcine) (Heparin Inj) 2,500 units IV.PUSH UNSCH PRN PRN Reason: aPTT 25-39 Last Admin: 10/11/18 21:06 Dose: 2,500 units Heparin Sodium (Porcine) (Heparin Inj) 5,000 units IV.PUSH UNSCH PRN PRN Reason: aPTT < 25 Sodium Chloride (Ns Inj) 1,000 mls @ 100 mls/hr IV.CONT .Q10H [facility] Last Admin: 10/12/18 10:02 Dose: Not Given Heparin Sodium/Dextrose (Heparin/D5w 25,000 U/250 Ml) 25,000 unit in 250 mls @ 10 mls/hr IV.CONT TITRATE PRN; Protocol PRN Reason: Per Protocol Last Titration: 10/12/18 02:00 Dose: 1,300 units/hr, 13 mls/hr Insulin Aspart (Novolog Insulin Correctional Sugar Inj) 0 unit SQ ACHS [facility]; Protocol Last Admin: 10/12/18 13:01 Dose: 1 unit Metoprolol Tartrate (Lopressor) 12.5 mg PO BID [facility] Last Admin: 10/12/18 08:07 Dose: 12.5 mg Nitroglycerin (Nitrostat Sl) 0.4 mg SL Q5M PRN PRN Reason: CHEST PAIN Last Admin: 10/10/18 21:11 Dose: 0.4 mg Nitroglycerin (Nitro-Bid 2% Oint) 1 inch TOPICAL Q6HR [facility] Last Admin: 10/12/18 13:00 Dose: 1 inch Sodium Chloride (Ns Flush) 2 ml IV.FLUSH UNSCH PRN PRN Reason: FLUSH AFTER USING IV ACCESS Last Admin: 10/10/18 13:56 Dose: 2 ml Allergies Allergy/AdvReac Type Severity Reaction Status Date / Time No Known Allergies Allergy Verified 10/10/18 13:20 Home Medications Medication Instructions Recorded Confirmed Type amlodipine 5 mg PO HS 10/10/18 10/10/18 History pravastatin 40 mg PO HS 10/10/18 10/10/18 History Physical Exam Vital signs: Vital Signs 10/11/18 15:00 10/11/18 16:00 10/11/18 17:00 Temperature 98.6 F Pulse Rate 78 84 90 Respiratory Rate 18 Blood Pressure 162/86 H Pulse Oximetry 96 10/11/18 18:00 10/11/18 19:00 10/11/18 20:00 Temperature 98.5 F Pulse Rate 90 81 80 Respiratory Rate 20 Blood Pressure 147/85 H Pulse Oximetry 96 10/11/18 21:00 10/11/18 22:00 10/11/18 23:00 Temperature Pulse Rate 72 74 70 Respiratory Rate Blood Pressure Pulse Oximetry 10/12/18 00:00 10/12/18 01:00 10/12/18 02:00 Temperature 98.2 F Pulse Rate 72 70 72 Respiratory Rate 18 Blood Pressure 100/55 L Pulse Oximetry 96 10/12/18 03:00 10/12/18 04:00 10/12/18 05:00 Temperature 98.4 F Pulse Rate 71 72 73 Respiratory Rate 18 Blood Pressure 138/78 Pulse Oximetry 94 L 10/12/18 05:44 10/12/18 07:00 10/12/18 08:00 Temperature 98 F Pulse Rate 70 70 68 Respiratory Rate 18 Blood Pressure 129/85 Pulse Oximetry 96 10/12/18 09:00 10/12/18 10:10 10/12/18 11:00 Temperature Pulse Rate 66 72 72 Respiratory Rate Blood Pressure Pulse Oximetry 10/12/18 12:00 Temperature 99.3 F Pulse Rate 76 Respiratory Rate 18 Blood Pressure 162/87 H Pulse Oximetry 98 Intake & Output 10/11/18 10/12/18 10/12/18 18:59 06:59 18:59 Intake Total 2490 / 2490 480 / 480 1000 / 1000 Output Total 1400 / 1400 900 / 900 Balance 1090 / 1090 -420 / -420 1000 / 1000 Weight 131.5 kg Intake: IV 1250 / 1250 1000 / 1000 Heparin/D5W 25,000 U/250 mL 25, 250 / 250 000 unit In 250 ml @ 1,000 UNITS/HR 10 mls/hr IV.CONT TITRATE PRN Rx#:[id number] NS Inj 1,000 ML @ 100 mls/hr IV 1000 / 1000 1000 / 1000 .CONT .Q10H [facility] Rx#:[id number] Oral 1240 / 1240 480 / 480 Output: Urine 1400 / 1400 900 / 900 Other: Date of Last Bowel Movement 10/10/18 10/10/18 10/10/18 # Bowel Movements 0 Narrative: GENERAL: NAD, AAOx3 SKIN: Warm and dry. HEAD: Atraumatic. Normocephalic. EYES: Pupils equal and round. No scleral icterus. No injection or drainage. ENT: No nasal bleeding or discharge. Mucous membranes pink and moist. NECK: Trachea midline. No JVD. CARDIOVASCULAR: Regular rate and rhythm. RESPIRATORY: No accessory muscle use. Clear to auscultation. Breath sounds equal bilaterally. GASTROINTESTINAL: Abdomen soft, non-tender, nondistended. Hepatic and splenic margins not palpable. MUSCULOSKELETAL: Extremities without clubbing, cyanosis, or edema. No obvious deformities. NEUROLOGICAL: Awake and alert. No obvious cranial nerve deficits. Motor grossly within normal limits. Five out of 5 muscle strength in the arms and legs. Normal speech. PSYCHIATRIC: Appropriate mood and affect; insight and judgment normal. Results 10/12/18 01:55 10/12/18 01:55 Cardiac Enzymes 10/10/18 10/10/18 10/11/18 Range/Units 13:33 19:15 02:46 AST 34 (15-37) U/L Troponin I 0.20 H 0.66 H* 1.83 H* (0.02-0.05) ng/mL Coagulation 10/10/18 10/11/18 10/11/18 Range/Units 21:51 02:46 10:31 PT 10.5 10.5 (9.8-11.6) sec APTT 27.5 35.2 H D 31.3 (23.4-31.7) sec 10/11/18 10/12/18 10/12/18 Range/Units 19:36 01:55 10:25 PT (9.8-11.6) sec APTT 35.0 H 45.5 H D 38.0 H (23.4-31.7) sec CBC 10/11/18 10/12/18 Range/Units 02:46 01:55 WBC 7.0 6.9 (4.0-11.0) th/mm3 RBC 4.88 4.68 (4.50-5.90) mil/mm3 Hgb 15.1 14.9 (13.0-17.0) gm/dL Hct 44.6 42.1 (39.0-51.0) % Plt Count 179 177 (150-450) th/mm3 Comprehensive Metabolic Panel 10/10/18 10/11/18 10/12/18 Range/Units 13:33 02:46 01:55 Sodium 142 145 144 (136-145) meq/L Potassium 4.4 4.1 3.9 (3.5-5.1) meq/L Chloride 110 H 112 H 110 H (98-107) meq/L Carbon Dioxide 26.0 27.9 25.9 (21.0-32.0) meq/L BUN 17 21 H 17 (7-18) mg/dL Creatinine 0.89 0.99 0.96 (0.60-1.30) mg/dL Calcium 8.7 8.6 8.6 (8.5-10.1) mg/dL AST 34 (15-37) U/L ALT 35 (12-78) U/L Alkaline Phosphatase 92 (45-117) U/L Total Protein 7.8 (6.4-8.2) g/dL Albumin 4.4 (3.4-5.0) g/dL Intake and Output 10/11/18 10/12/18 10/12/18 22:59 06:59 14:59 Intake Total 1250 / 1250 480 / 480 1000 / 1000 Output Total 1400 / 1400 900 / 900 Balance -150 / -150 -420 / -420 1000 / 1000 Intake: IV 250 / 250 1000 / 1000 Heparin/D5W 25,000 U/250 mL 25, 250 / 250 000 unit In 250 ml @ 1,000 UNITS/HR 10 mls/hr IV.CONT TITRATE PRN Rx#:[id number] NS Inj 1,000 ML @ 100 mls/hr IV 1000 / 1000 .CONT .Q10H [facility] Rx#:[id number] Oral 1000 / 1000 480 / 480 Output: Urine 1400 / 1400 900 / 900 Other: Date of Last Bowel Movement 10/10/18 10/10/18 10/10/18 # Bowel Movements 0 Weight 131.5 kg - Imaging and Cardiology Imaging: Impressions Thoracic Aorta CT 10/10/18 13:20 CONCLUSION: Negative study Assessment and Plan - Assessment (1) NSTEMI (non-ST elevated myocardial infarction) Code(s): I21.4 - Non-ST elevation (NSTEMI) myocardial infarction Status: Acute (2) Hypertensive urgency Code(s): I16.0 - Hypertensive urgency Status: Acute - Plan 1) NSTEMI Troponins significantly elevated Plan for cardiac catheterization tomorrow Risks, benefits and alternatives discussed with patient 2) EF 55-60% 3) DM 4) HTN urgency on arrival Blood pressure some what better controlled
[2018-10-12] MEDS: Heparin 10,000 UNITS/10 ML Vial (for IV use) IV.PUSH PRN (14:33)
[2018-10-12] MEDS: Heparin Drip 25,000 UNIT/250 ML BAG IV.CONT PRN (14:34)
--- NOTE | 2018-10-12 14:52 | P.PNIM ---
Subjective Interval history: The patient was resting in bed comfortably. He had no acute complaints. He said that he has had decreased energy for a long time now. He was hoping after the catheterization he would have more energy. Has been trying to lose weight. Physical Exam Vital signs: Vital Signs 10/11/18 15:00 10/11/18 16:00 10/11/18 17:00 Temperature 98.6 F Pulse Rate 78 84 90 Respiratory Rate 18 Blood Pressure 162/86 H Pulse Oximetry 96 10/11/18 18:00 10/11/18 19:00 10/11/18 20:00 Temperature 98.5 F Pulse Rate 90 81 80 Respiratory Rate 20 Blood Pressure 147/85 H Pulse Oximetry 96 10/11/18 21:00 10/11/18 22:00 10/11/18 23:00 Temperature Pulse Rate 72 74 70 Respiratory Rate Blood Pressure Pulse Oximetry 10/12/18 00:00 10/12/18 01:00 10/12/18 02:00 Temperature 98.2 F Pulse Rate 72 70 72 Respiratory Rate 18 Blood Pressure 100/55 L Pulse Oximetry 96 10/12/18 03:00 10/12/18 04:00 10/12/18 05:00 Temperature 98.4 F Pulse Rate 71 72 73 Respiratory Rate 18 Blood Pressure 138/78 Pulse Oximetry 94 L 10/12/18 05:44 10/12/18 07:00 10/12/18 08:00 Temperature 98 F Pulse Rate 70 70 68 Respiratory Rate 18 Blood Pressure 129/85 Pulse Oximetry 96 10/12/18 09:00 10/12/18 10:10 10/12/18 11:00 Temperature Pulse Rate 66 72 72 Respiratory Rate Blood Pressure Pulse Oximetry 10/12/18 12:00 Temperature 99.3 F Pulse Rate 76 Respiratory Rate 18 Blood Pressure 162/87 H Pulse Oximetry 98 Intake & Output 10/11/18 10/12/18 10/12/18 18:59 06:59 18:59 Intake Total 2490 / 2490 480 / 480 1250 / 1250 Output Total 1400 / 1400 900 / 900 Balance 1090 / 1090 -420 / -420 1250 / 1250 Weight 131.5 kg Intake: IV 1250 / 1250 1250 / 1250 Heparin/D5W 25,000 U/250 mL 25, 250 / 250 250 / 250 000 unit In 250 ml @ 1,000 UNITS/HR 10 mls/hr IV.CONT TITRATE PRN Rx#:[id number] NS Inj 1,000 ML @ 100 mls/hr IV 1000 / 1000 1000 / 1000 .CONT .Q10H [facility] Rx#:[id number] Oral 1240 / 1240 480 / 480 Output: Urine 1400 / 1400 900 / 900 Other: Date of Last Bowel Movement 10/10/18 10/10/18 10/10/18 # Bowel Movements 0 Narrative: GENERAL: No acute distress, obese. SKIN: Warm and dry. No rashes HEAD: Atraumatic, normocephalic. EYES: No scleral icterus. No injection or drainage. ENT: Moist mucous membranes, patent nares, no erythema of oropharynx. NECK: Supple, trachea midline. No JVD or lymphadenopathy. Normal thyroid. CARDIOVASCULAR: Regular rate and rhythm. No murmurs, gallops, or rubs. RESPIRATORY: Breath sounds clear equal bilaterally. No crackles or wheezes. No accessory muscle use. GASTROINTESTINAL: Abdomen soft, non-tender, nondistended, normal active bowel sounds MUSCULOSKELETAL: No cyanosis, TR edema. NEURO: CN II-XII grossly intact, no focal deficits, no slurring of speech. Results Labs CBC & Chem 7: 10/12/18 01:55 10/12/18 01:55 Assessment and Plan (1) NSTEMI (non-ST elevated myocardial infarction): Code(s): I21.4 - Non-ST elevation (NSTEMI) myocardial infarction Status: Acute (2) Hypertensive urgency: Code(s): I16.0 - Hypertensive urgency Status: Acute Plan NSTEMI The patient is a 68 y/o male with a dx of HTN, DLD, obesity who presents to the ED with complaints of upper back pain between his shoulder blades that he rates a 3/10. He says that he started working out recently and thought the pain was because of the exercise. He says his blood pressure was elevated, systolic slightly above 200 while he was at home. CT chest showed no dissection. Troponin trended upwards to 1.83. EKG shows rbbb, no st or t wave changes, nsr. Cardiology consult appreciated. -Continue treatment with statin and beta-day, ASA. -Continue heparin drip. -Cardiology planning cath in am. -telemetry. Accelerated HTN SBP slightly above 200 at home. Improved. -Continue Norvasc and beta-day. -Vasotec as needed. Type 2 diabetes Well controlled at this time. -Accu-Cheks with sliding scale insulin coverage. -Diabetic diet. DVT prophylaxis: Heparin Progress Note: Quality VTE Deep Vein Thrombosis/Pulmonary Embolism Present on Admission: No
[2018-10-13 01:53] LABS: Mean Corpuscular HGB Conc 34.8 % (32.0-36.0); Mean Corpuscular Hemoglobin 30.7 pg (27.0-34.0); Mean Platelet Volume 7.7 fL (7.0-11.0); Platelet Count 176 th/mm3 (150-450); Red Blood Count 4.89 mil/mm3 (4.50-5.90); Red Cell Distribution Width 13.7 % (11.6-17.2); White Blood Count 6.8 th/mm3 (4.0-11.0)
[2018-10-13] MEDS ORDERED: Metoprolol Tartrate 25 MG Tablet PO SCH (05:00)
[2018-10-13] MEDS: Sod Chloride 0.9% Inj 1,000 ML IV.CONT SCH (05:21)
[2018-10-13] MEDS: Metoprolol Tartrate 25 MG Tablet PO SCH ×2 (08:04→20:42)
[2018-10-13] MEDS: amLODIPine 5 MG Tablet PO SCH (08:05)
[2018-10-13] MEDS: Insulin NovoLOG Aspart Correctional Sugar Inj SQ SCH ×3 (08:06→17:25)
[2018-10-13] MEDS ORDERED: Heparin 10,000 UNITS/10 ML Vial (for IV use) ONE (08:28)
[2018-10-13] MEDS ORDERED: Heparin/NS PF Inj 1,000 ML ONE (08:28)
[2018-10-13] MEDS ORDERED: fentaNYL Citrate Inj 100 MCG/2 ML Ampul ONE (08:37)
[2018-10-13] MEDS ORDERED: Iohexol 350 MG/ML 50 ML Vial (for Cath Lab) IVCONTRAST ONE (08:45)
--- NOTE | 2018-10-13 09:16 | CATHPROC ---
[employer] HIS Report Study Information Study Number Admission Scheduled Start Study Start [id number] Oct 10 2018 9:07PM 10/13/2018 Oct 13 2018 8:08AM [place] [facility] Cardiac Catheterization Admit Source Facility Department Emergency department [facility] - Technology Advisor Physician and Clinical Staff Initial Giovanny Bee Community Representative Nicholas Figueroa RN Recorder Tatianna Hinton RCIS TECH2 Scrub Adam Cummings RCIS(BS) Procedures Performed Procedure Location (Site) Vessel Name Coronary Angiograms LCA Left Coronary Coronary Angiograms RCA Right Coronary L Heart Cath Equipment Time Financial Assistance Specialist Description Size Mfg Part Number Used/Scraped TRANSDUCER, TRUWAVE [id number] 08:11 AVILA IBRAHIM * Used W/STOCKCOCK *[id number] 08:11 BoardEvals BLANKET,WARM AIR CCL * Used *[id number] 08:11 [employer]vals PACK, CCL CUSTOM * Used *[id number] 08:11 [employer] SUPPORT, ARTERIAL ADULT 13726 *[id number] Used [id number] 08:52 MEDTRONIC JL 3.5 DXTERITY CATHETER FR 5 Used *[id number] 08:52 MEDTRONIC JR 4.0 DXTERITY CATHETER FR 5 Used *[id number] BAND, RADIAL COMPRESSION TR [id number] 08:55 Shortlist MEDICAL 29CM Used LARGE 29 *[id number] 08:11 Shortlist MEDICAL WIRE, EXCHANGE 260CM 3MMJ 260CM Used *[id number] 08:11 NAMIC MANIFOLD, 4 PORT * Used *[id number] 08:11 NYCOMED OMNIPAQUE, 350 MG, 150ML 150ML [id number] Used SHEATH, FR6 TRANSRADIAL [id number] 08:11 TERUMPiccsy MEDICAL FR 6 Used SLENDER 10CM *[id number] History: Current Medications Medication Dosage/Unit Route Frequency Last Date/Time Taken NORVASC Statins (any) History: Allergies Allergy Reaction No Known Allergies History: Risk Factors Family History of Hypertension Dyslipidemia Previous RI Previous Heart Failure Premature CAD Yes No Yes No No Prior Valve Prior PCI Prior CABG Surgery No No No Cerebrovascular Peripheral Artery Chronic Lung On Dialysis Diabetes Diabetes Therapy Disease Disease Disease No No No No Yes None History: Symptoms/Diagnosis Selection Items Chest pain History: Stress Tests Stress or Imaging Studies Performed No History: Other Current Smoker Method Quit Packs a Day Years Used Pack Years No Cigarettes 40 Years Ago 3 6 18 Labs Hgb (g/dl) Hct (%) WBC (l/cumm) Platelets (thousands) 11.60-17.00 35.00-51.00 4.00-11.00 150.00-450.00 15.0 43 6.8 176 Glucose (mg/dl) BUN (mg/dl) Creatinine (mg/dl) BUN:Creatinine (1:x) 74.00-106.00 7.00-18.00 0.50-1.30 10.00-20.00 150 17 0.9 18.9 Na (meq/l) K (meq/l) 136.00-145.00 3.50-5.10 144 3.9 INR (PTT:PT) 0.90-1.10 1 Troponin I (ng/ml) CPK (u/l) CPK-MB (ng/ML) 0.02-0.05 26.00-308.00 0.50-3.60 1.83 191 Not Drawn Medication Medication Total Dose (Bolus/Oral) Medication Total Dosage/Unit 1% XYLOCAINE 5 mL FENTANYL 50 mcg OXYGEN 2 l/min RADIAL COCKTAIL 5 mL (Bolus) VERSED 1 mg Medications (Bolus/Oral) Medication Time Given Dosage/Unit Administered By Reason VERSED 10/13/2018 8:42:08 AM 1 mg Nicholas Figueroa 1 mg VERSED given in lab by Nicholas Figueroa RN in Right Forearm via Peripheral IV. Ordered by Giovanny Berry OXYGEN 10/13/2018 8:42:56 AM 2 l/min Nicholas Figueroa 2 l/min OXYGEN given in lab by Nicholas Figueroa RN via Nasal. Ordered by Giovanny Berry 1% XYLOCAINE 10/13/2018 8:43:18 AM 5 mL Giovanny Berry 5 mL 1% XYLOCAINE given in lab by Giovanny Berry in Right Radial via Subcutaneous. Ordered by Giovanny Wood FENTANYL 10/13/2018 8:43:23 AM 50 mcg Nicholas Figueroa 50 mcg FENTANYL given in lab by Nicholas Figueroa RN in Right Forearm via Peripheral IV. Ordered by Giovanny Gonzalez RADIAL COCKTAIL 10/13/2018 8:46:37 AM 5 mL (Bolus) Giovanny Berry 5 mL (Bolus) RADIAL COCKTAIL given in lab by Giovanny Berry in Right Radial via Radial. Using [S olution Name]. Ordered by Giovanny Berry. Reason: Ntg 200mcg Verapamil 2.5mg Heparin 5000U. Medication (Drip) Medication Time Given Dosage/Unit Concentration/Unit Diluent (ml) Solution IV Solutions 10/13/2018 8:24:15 AM 0 mL (IV) 1000 NaCl .9 Patient arrived on IV Solutions in Right Forearm via Peripheral IV. Pump/Drip Flow = 20 ml/hr using N aCl .9. Initial Case Assessment Circulatory - Right Pulses Dorsalis Pedis Femoral Radial 2 2 2 Scale (0,1,2,3,4,d) Scale (0,1,2,3,4,d) Neurological State Oriented to time-place- Alert Moves all extremities person Respiration - General Respiration Rate SpO2 (%) (B/min) 9 96 Final Case Assessment Cardiovascular HR Rhythm NIBP Chest Pain 75 sr 162/96 0 Circulatory - Right Pulses Dorsalis Pedis Femoral Radial 2 2 2 Scale (0,1,2,3,4,d) Scale (0,1,2,3,4,d) Neurological State Oriented to time-place- Alert Moves all extremities person Respiration - General Respiration Rate SpO2 (%) (B/min) 17 93 Chronological Log Time Study Chronological Log 8:14:19 Patient arrived via Bed. 8:14:20 Patient Name, D.O.B, / Armband Verified By R.N. 8:14:21 Consent signed by the physician and the patient and verified by the Technology Advisor staff. 8:15:22 Pre-op and post- op instructions given; patient acknowledges understanding of instructions. 8:15:43 Verbal Stimulation=2 Physical Stimulation=2 Airway=2 Respiration=2 TOTAL=8. (0=absent, 1=li mited, 2=present) 8:15:53 Presedation assessment performed by Technology Advisor RN. 8:16:26 Positive Allens test performed on the right radial and ulnar artery. 8:18:41 Jennifer Prominences Protected Vitals capture started with the following parameters, Patient=Adult, Interval=5 min, Initial Pr qyogea=766 mmHg, 8:22:01 Deflation Rate=5 mmHg, Cuff placed on Right Limb 8:23:36 Patient has been NPO for More than 6Hrs. 8:23:40 Skin Breakdown-none 8:23:59 A # 20 IV was noted in the Forearm (right). Grade = 0 8:24:02 WI=800 bpm, RONQ=010/81 mmhg, SpO2=93.0 %, Resp=23 B/min 8:24:15 Patient arrived on IV Solutions in Right Forearm via Peripheral IV. Pump/Drip Flow = 20 ml/h r using NaCl .9. 8:24:37 History and physical on the chart or being dictated. Assessment: Initial Case Right Pulses: Ghulam Ped=2, Femoral=2, Radial=2 8:24:39 Neurological: State=Alert, Ox3, ROUSE Respiration: Resp=9 B/min, SpO2=96 % 8:25:43 Right Radial and groin(s) prepped with 2% chlorhexidine, and draped after a 3 min. waiting t cisco. 8:27:22 Reference ECG taken 8:28:06 HR=72 bpm, KCIM=693/83 mmhg, SpO2=96.0 %, Resp=16 B/min 8:31:34 MD paged 8:31:54 MD responded 8:33:05 HR=68 bpm, WWSV=813/81 mmhg, SpO2=95.0 %, Resp=22 B/min 8:34:17 Pressure channel 1 zeroed. 8:38:04 HR=67 bpm, ZMTI=401/77 mmhg, SpO2=94.0 %, Resp=19 B/min 8:38:20 MD arrived. 8:42:08 1 mg VERSED given in lab by Nicholas Figueroa RN in Right Forearm via Peripheral IV. Ordered by Giovanny Berry Time Out. Correct patient, correct procedure, correct physician, labs, allergies, and equipment verified with worm farm laborer 8:42:10 team present. Fire risk assesment completed (see hard stop sheet for coding). Time Out Concu rred by MD and individual staff in procedure. 8:42:56 2 l/min OXYGEN given in lab by Nicholas Figueroa RN via Nasal. Ordered by Giovanny Berry 8:43:03 HR=75 bpm, WBKI=279/91 mmhg, SpO2=94.0 %, Resp=19 B/min 8:43:17 Case Start 5 mL 1% XYLOCAINE given in lab by Giovanny Berry in Right Radial via Subcutaneous. Ordered by Jamal 8:43:18 Giovanny Carpenter 8:43:23 50 mcg FENTANYL given in lab by Nicholas Figueroa, RN in Right Forearm via Peripheral IV. Ordered by Giovanny Berry. 8:46:07 Access site was Right Radial Artery . A SHEATH, FR6 TRANSRADIAL SLENDER 10CM FR 6 was advanced into the Radial (right) using the Zana morris 8:46:17 technique. 5 mL (Bolus) RADIAL COCKTAIL given in lab by Giovanny Berry in Right Radial via Radial. Usi ng [Solution Name]. 8:46:37 Ordered by Giovanny Berry. Reason: Ntg 200mcg Verapamil 2.5mg Heparin 5000U. A JR 4.0 DXTERITY CATHETER FR 5 was advanced over a wire. OMNIPAQUE, 350 MG, 150ML 150ML was use d for 8:47:45 injections. 8:48:04 HR=74 bpm, RDIM=025/73 mmhg, SpO2=92.0 %, Resp=20 B/min Recorded Pressure: LV, HR=75, Condition=Condition 1 8:48:41 (Left Ventricle) LV 128/3/14 Recorded Pressure: LV, Ao, HR=76, Condition=Condition 1 8:48:58 (Left Ventricle) LV 127/6/15, (Aorta) Ao 113/72/93 8:49:28 The RCA was injected and visualized at various angles. OMNIPAQUE, 350 MG, 150ML 150ML used. After removing the current catheter a JL 3.5 DXTERITY CATHETER FR 5 was advanced over a WIRE, EX CHANGE 260CM 8:50:43 3MMJ 260CM. 8:52:37 The LCA was injected and visualized at various angles. OMNIPAQUE, 350 MG, 150ML 150ML used. 8:53:01 HR=70 bpm, OWHQ=301/78 mmhg, SpO2=90.0 %, Resp=18 B/min Recorded Pressure: Ao, HR=74, Condition=Condition 1 8:54:02 (Aorta) Ao 136/85/108 8:54:52 Catheter was removed 8:56:27 Case End (Physician broke scrub) Radial Compression Device Used. 12 mLs of air placed in BAND, RADIAL COMPRESSION TR LARGE 29 2 9CM. Affected 8:57:45 hand 93 % O2 saturation. 8:58:02 HR=75 bpm, AEQE=891/96 mmhg, SpO2=93.0 %, Resp=17 B/min 8:58:14 No case complications noted. Assessment: Final Case, HR=75 BPM, Rhythm=sr, SFOU=434/96 mmhg, Chest Pain=0 Right Pulses: Ghulam Ped=2, Femoral=2, Radial=2 8:58:33 Neurological: State=Alert, Ox3, ROUSE Respiration: Resp=17 B/min, SpO2=93 % 9:02:35 Cine recording checked. 9:02:42 Bedside Report will be given. 9:02:47 A Left Heart Cath was performed. 9:03:09 NLQD=370/98 mmhg 9:09:05 Patient moved to stretcher 9:09:11 Patient transported to [facility] End Study - Contrast Media Used In Study Contrast Total Opened (mL) Total Used (mL) Total Wasted (mL) Omnipaque 350 45 45 0 End Study - Maximum Contrast Load Max Contrast Load (mL) 730.1 End Study - Radiation Exposure Fluoro Time Fluoro Dose (mGy) Cine Dose (uGym2) (minutes) 1.4 4747 5881 End Study - Sheaths Sheaths Pulled By Sheath Hold Time (min) Adam Cummings End Study - Patient Disposition Complications Transferred To Interventional Outcome No Telemetry Bed No attempt made
--- NOTE | 2018-10-13 10:00 | MA ---
cc: Giovanny Berry DO DATE: 10/13/2018 PROCEDURE: Left heart catheterization, coronary angiogram, moderate sedation 15 minutes. PREPROCEDURE DIAGNOSIS: Non-ST elevation myocardial infarction. POSTPROCEDURE DIAGNOSIS: Multivessel coronary artery disease. MEDICATIONS: Versed 1 mg, fentanyl 50 mcg, nitroglycerin 200 mcg, verapamil 2.5 mg, heparin 5000 units. CONTRAST USED: 45 mL. FLUOROSCOPY: 1.4 minutes. MODERATE SEDATION: 15 minutes. FRAILTY SCORE:. 3. ESTIMATED BLOOD LOSS: 10 mL. PROCEDURAL SUMMARY: Chaparro Buck is a pleasant 68-year-old male who presented to [facility] due to an elevated blood pressure. He had a significant rise in his troponins and so he was recommended cardiac catheterization. Risks, benefits, and alternatives were explained to him and he consented to such. He was brought to the lab and prepped in the usual sterile fashion. The right radial artery was accessed using modified Seldinger technique and placement of a 5/6-Icelandic slender sheath. This was easily aspirated and flushed. A JR4 was advanced over a J-wire to the ascending aorta and across the aortic valve for measurement of left ventricular pressure. This was pulled back across the aortic valve showing no significant gradient of aortic stenosis. JR4 was used for selective angiography of the right coronary artery system. This was exchanged out for a JL3.5, which was used for selective angiography of the left coronary artery system. JL3.5 was removed over a J wire. A radial band was placed over the arteriotomy site for hemostasis. The patient left the refuse laborer cardiovascularly stable. FINDINGS: LEFT MAIN: Normal-sized vessel with adequate reflux. It bifurcates into an LAD and circumflex. LAD: Moderate-sized vessel with a 90% lesion in the proximal portion. Mid to distal has mild luminal irregularities. It gives off 1 major diagonal, which has a long tubular 90% lesion going into a lower branch with the upper branch having no significant disease. LEFT CIRCUMFLEX: Moderate-sized vessel with mild luminal irregularities throughout the proximal portion. It gives off 3 obtuse marginals with the first one having a 90% lesion in the proximal portion. The second and third seem to have no significant disease. RCA: Moderate-sized vessel with 30% disease throughout the proximal portion. It is 100% occluded in the gey-wl-josnqy portion. The RV branch supplies xeevc-mm-sizpg collaterals to the distal PDA. LVEDP: 15. IMPRESSION: 1. Non-ST elevation myocardial infarction. 2. Multivessel coronary artery disease. RECOMMENDATIONS: 1. Mr. Buck was found to have multivessel disease, he will be seen by CT surgery for further considerations of coronary artery bypass grafting. 2. As he had an elevated troponin, we will plan on restarting him on his heparin drip 1 hour after his TR band is removed. Thank you for allowing me to see Chaparro buck. If there are any questions, please do not hesitate to call. DO SAMANTHA AndujarP/rowdy , 09:12 AM , 09:20 AM
[2018-10-13] MEDS ORDERED: Sodium Chlor 0.9% Inj 77.5 ML, Papaverine Inj 60 MG, Nitroglycerin Inj 100 MCG, dilTIAZ... IRRIGATION SCH ×3 (11:30)
[2018-10-13] MEDS ORDERED: Chlorhexidine 4% Topical 120 APPLIC/120 ML Bottle TOPICAL SCH (11:30)
[2018-10-13] MEDS ORDERED: Sodium Chloride 0.9% Irr Bot 500 ML, ceFAZolin Inj 500 MG IRRIGATION SCH ×2 (11:30)
[2018-10-13] MEDS ORDERED: Insulin Regular (For Infusion) 100 UNIT in Sodium Chlor 0.9% Inj 99 ML IV.CONT PRN (11:30)
[2018-10-13] MEDS ORDERED: Dextrose 50% in Water 50 ML Vial IV.PUSH PRN (11:30)
--- NOTE | 2018-10-13 11:39 | P.PNCV ---
- Note Subjective/Hospital Course: pt seen and evaluated , full consult to follow sts data discussed with pt RISK SCORES Procedure: Isolated CAB CALCULATE Risk of Mortality: 1.197% Renal Failure: 1.618% Permanent Stroke: 0.862% Prolonged Ventilation: 6.894% DSW Infection: 0.286% Reoperation: 1.371% Morbidity or Mortality: 10.010% Short Length of Stay: 45.578% Long Length of Stay: 3.878% Objective: Vital Signs - 24 hr 10/12/18 12:00 10/12/18 13:00 10/12/18 14:00 Temperature 99.3 F Pulse Rate 76 82 76 Respiratory Rate 18 Blood Pressure 162/87 H Pulse Oximetry 98 10/12/18 15:00 10/12/18 15:44 10/12/18 17:00 Temperature 98.4 F Pulse Rate 79 63 80 Respiratory Rate 16 Blood Pressure 139/76 Pulse Oximetry 96 10/12/18 18:00 10/12/18 19:00 10/12/18 20:00 Temperature 98.6 F Pulse Rate 73 77 80 Respiratory Rate 20 Blood Pressure 142/72 H Pulse Oximetry 96 10/12/18 21:00 10/12/18 22:00 10/12/18 23:00 Temperature Pulse Rate 75 73 73 Respiratory Rate Blood Pressure Pulse Oximetry 10/13/18 00:00 10/13/18 01:00 10/13/18 02:00 Temperature 98.5 F Pulse Rate 69 71 72 Respiratory Rate 20 Blood Pressure 114/60 Pulse Oximetry 95 10/13/18 03:00 10/13/18 04:00 10/13/18 05:00 Temperature 98.4 F Pulse Rate 69 62 65 Respiratory Rate 18 Blood Pressure 111/65 Pulse Oximetry 95 10/13/18 06:00 10/13/18 08:12 Temperature 97.6 F Pulse Rate 71 72 Respiratory Rate 16 Blood Pressure 156/96 H Pulse Oximetry 98 Labs: Laboratory Results - last 12 hr 10/13/18 10/13/18 10/13/18 01:47 01:47 08:02 WBC 6.8 RBC 4.89 Hgb 15.0 Hct 43.0 MCV 88.0 MCH 30.7 MCHC 34.8 RDW 13.7 Plt Count 176 MPV 7.7 APTT 40.8 H POC Glucose 156 H Result Diagrams: 10/13/18 01:47 10/12/18 01:55
[2018-10-13] MEDS ORDERED: ceFAZolin 2 GM Premix Inj 2 GM/50 ML PIGGYBACK IV.SIG SCH (12:18)
[2018-10-13] MEDS ORDERED: Heparin Drip 25,000 UNIT/250 ML BAG IV.CONT PRN ×2 (12:25→15:01)
--- NOTE | 2018-10-13 12:36 | XR ---
EXAM DATE: 10/13/2018 12:22 PM EST AGE/SEX: 68 years / Male INDICATIONS: Evaluate for pneumonia, pneumothorax, or communicable disease. Pre-op open heart CLINICAL DATA: This is the patient's initial encounter. Patient reports that signs and symptoms have been present for 3 days and indicates a pain score of 0/10. MEDICAL/SURGICAL HISTORY: Hypertension. None. COMPARISON: No prior exams available for comparison. FINDINGS: Marked eventration of the right hemidiaphragm. Lungs are clear. The heart and pulmonary vascularity are normal. Degenerative changes are present in the mid thoracic spine. CONCLUSION: Marked eventration right hemidiaphragm otherwise negative Electronically signed by: Rigo Flowers MD Board Certified Radiologist 10/13/2018 12:35 PM EST
[2018-10-13 13:28] LABS: Bilirubin,Urine Negative (Negative); Clarity,Urine Clear (Clear); Color,Urine Straw (Yellw/Straw); Glucose,Urine (UA) Negative (Negative); Leukocyte Esterase,Urine Negative (Negative); Nitrite,Urine Negative (Negative); Specific Gravity,Urine 1.015 (1.002-1.035)
--- NOTE | 2018-10-13 15:07 | MB ---
cc: Isabel Wagner APRN DATE: 10/13/2018 HISTORY OF PRESENT ILLNESS: This is a 68-year-old male; patient of Dr. Gordon Nazario and also Dr. Berry, who presented to the emergency department with some upper back pain, which was between his shoulder blades. He started working out at the gym a couple of times and thought that the pain was due to his exercise, but he woke up at 3 a.m. with this pain in his back and also took his blood pressure, which was over 200. He tried to go back to bed, woke his up and presented to the emergency department. The patient's blood pressure on arrival was 201/98. He had other workup to include a thoracic aorta CT, which was negative for dissection; relatively negative study. His lab work did come back ruling him in for a non-STEMI with a troponin of 1.83. The patient underwent further evaluation to include a 2-D echo, which showed an ejection fraction of 55%-60%, some trace aortic insufficiency, otherwise unremarkable. Cardiac catheterization revealed proximal LAD 80%, the diagonal was 80%, the OM was 90%, the RCA 100%. We were consulted to evaluate for coronary artery bypass grafting. PAST MEDICAL HISTORY: Includes morbid obesity, chronic bilateral knee pain, hypertension, recently diagnosed diabetes mellitus. He was to start on some metformin. He has had a history of depression. PAST SURGICAL HISTORY: No past surgical history documented. ALLERGIES: NO KNOWN ALLERGIES: HOME MEDICATIONS: Include: Amlodipine and Pravachol. NEW MEDICATIONS: Which he had not started: Metformin and lisinopril. FAMILY HISTORY: Father had coronary bypass in his 60s; he at age 86. Mother had bypass surgery at age 80, at age 95. SOCIAL HISTORY: The patient is . He smoked for remotely about 8 years, 3 packs per day; quit 40 years ago. Rare alcohol. REVIEW OF SYSTEMS: GENERAL: No night sweats, fever, heat and cold intolerance. SKIN: No psoriasis, itching or hives. HEENT: No blurred vision, hearing loss. RESPIRATORY: Some mild shortness of breath. CARDIOVASCULAR: As above in the HPI. GASTROINTESTINAL: No diarrhea or vomiting. GENITOURINARY: No burning, frequency, urgency. CENTRAL NERVOUS SYSTEM: No history of TIA, CVA or seizure disorder. ENDOCRINOLOGY: Positive for diabetes. PHYSICAL EXAMINATION: VITAL SIGNS: Blood pressure 156/90, heart rate is 72, O2 saturation 98% on room air, afebrile. GENERAL: Patient is awake, alert, in no acute distress. HEENT: Head is normocephalic, atraumatic. Pupils equal and reactive. Oral mucosa pink, moist. NECK: Supple. No JVD. CARDIOVASCULAR: Heart sounds S1, S2. Regular rate and rhythm. No audible rubs, murmurs, or gallops. LUNGS: Clear to auscultation. No wheezes, rales or rhonchi. ABDOMEN: Soft, obese, nontender. No masses or organomegaly. EXTREMITIES: Reveal trace edema. Good distal pulses. LABORATORY DATA: Lab work shows a peak troponin of 1.83, sodium 144, potassium 3.9, BUN of 17, creatinine 0.896, hemoglobin 15, hematocrit 43, white cell count of 6.8, platelet count of 176. DIAGNOSTIC DATA: EKG: Sinus rhythm with a right bundle block. IMAGING: Chest x-ray, some marked elevation of the right hemidiaphragm. IMPRESSION: This is a 68-year-old male with multivessel coronary artery disease. The cardiac films have been evaluated by Dr. Gisella Leal. PLAN: Plan will be for coronary artery bypass grafting on 10/15/2018. At this time, we will hold his lisinopril, continue his aspirin and other medications The patient is also on a heparin drip and nitro paste. Further plan per Dr. Gisella Leal. The patient is agreeable to proceed. FRANK Apple MD JRT/tulio , 02:32 PM , 02:43 PM
--- NOTE | 2018-10-13 15:16 | P.PNIM ---
Subjective Interval history: The patient was having imaging studies performed at the bedside. He said he was due for some pain medications. He was aware of the findings on his catheterization and is prepared for surgery. Family at the bedside. No acute concerns at this time. Discussed with nursing. Physical Exam Vital signs: Vital Signs 10/12/18 15:44 10/12/18 17:00 10/12/18 18:00 Temperature 98.4 F Pulse Rate 63 80 73 Respiratory Rate 16 Blood Pressure 139/76 Pulse Oximetry 96 10/12/18 19:00 10/12/18 20:00 10/12/18 21:00 Temperature 98.6 F Pulse Rate 77 80 75 Respiratory Rate 20 Blood Pressure 142/72 H Pulse Oximetry 96 10/12/18 22:00 10/12/18 23:00 10/13/18 00:00 Temperature 98.5 F Pulse Rate 73 73 69 Respiratory Rate 20 Blood Pressure 114/60 Pulse Oximetry 95 10/13/18 01:00 10/13/18 02:00 10/13/18 03:00 Temperature Pulse Rate 71 72 69 Respiratory Rate Blood Pressure Pulse Oximetry 10/13/18 04:00 10/13/18 05:00 10/13/18 06:00 Temperature 98.4 F Pulse Rate 62 65 71 Respiratory Rate 18 Blood Pressure 111/65 Pulse Oximetry 95 10/13/18 07:00 10/13/18 08:00 10/13/18 08:12 Temperature 97.6 F Pulse Rate 63 72 72 Respiratory Rate 16 Blood Pressure 156/96 H Pulse Oximetry 98 10/13/18 09:15 10/13/18 11:00 10/13/18 12:00 Temperature 97.8 F Pulse Rate 72 70 69 Respiratory Rate 16 Blood Pressure 161/93 H Pulse Oximetry 93 L 10/13/18 13:00 10/13/18 14:00 10/13/18 15:10 Temperature 99.1 F Pulse Rate 70 70 70 Respiratory Rate 18 Blood Pressure 136/77 Pulse Oximetry 91 L Intake & Output 10/12/18 10/13/18 10/13/18 18:59 06:59 18:59 Intake Total 0 / 0 480 / 480 Output Total 960 / 960 950 / 950 Balance 1090 / 1090 -470 / -470 Weight 131.4 kg Intake: IV 1250 / 1250 1 / 1 Heparin/NS PF Inj 1,000 ML @ 0 1 / 1 mls/hr .ROUTE .STK-MED ONE Rx#: [id number] Heparin/D5W 25,000 U/250 mL 25, 250 / 250 000 unit In 250 ml @ 1,000 UNITS/HR 10 mls/hr IV.CONT TITRATE PRN Rx#:[id number] NS Inj 1,000 ML @ 100 mls/hr IV 1000 / 1000 .CONT .Q10H CHIKIS Rx#:[id number] Oral 800 / 800 480 / 480 Output: Urine 960 / 960 950 / 950 Other: Date of Last Bowel Movement 10/10/18 10/10/18 10/10/18 # Bowel Movements 0 Narrative: GENERAL: No acute distress, obese. SKIN: Warm and dry. No rashes HEAD: Atraumatic, normocephalic. EYES: No scleral icterus. No injection or drainage. ENT: Moist mucous membranes, patent nares, no erythema of oropharynx. NECK: Supple, trachea midline. No JVD or lymphadenopathy. Normal thyroid. CARDIOVASCULAR: Regular rate and rhythm. No murmurs, gallops, or rubs. RESPIRATORY: Breath sounds clear equal bilaterally. No crackles or wheezes. No accessory muscle use. GASTROINTESTINAL: Abdomen soft, non-tender, nondistended, normal active bowel sounds MUSCULOSKELETAL: No cyanosis, TR edema. NEURO: CN II-XII grossly intact, no focal deficits, no slurring of speech. Results Labs CBC & Chem 7: 10/13/18 01:47 10/12/18 01:55 Imaging Imaging: Impressions Chest X-Ray 10/13/18 11:30 CONCLUSION: Marked eventration right hemidiaphragm otherwise negative Assessment and Plan (1) NSTEMI (non-ST elevated myocardial infarction): Code(s): I21.4 - Non-ST elevation (NSTEMI) myocardial infarction Status: Acute (2) Hypertensive urgency: Code(s): I16.0 - Hypertensive urgency Status: Acute Plan NSTEMI The patient is a 68 y/o male with a dx of HTN, DLD, obesity who presents to the ED with complaints of upper back pain between his shoulder blades that he rates a 3/10. He says that he started working out recently and thought the pain was because of the exercise. He says his blood pressure was elevated, systolic slightly above 200 while he was at home. CT chest showed no dissection. Troponin trended upwards to 1.83. EKG shows rbbb, no st or t wave changes, nsr. Cardiology consult appreciated. S/p cath 10/13 with multivessel disease noted. -Continue treatment with statin and beta-day, ASA. -Continue heparin drip. -CTS consult appreciated. Anticipate CABG on Saturday. -pain control as needed. -telemetry. Accelerated HTN SBP slightly above 200 at home. Improved. -Continue Norvasc and beta-day. -Vasotec as needed. Type 2 diabetes Relatively well controlled at this time. -Accu-Cheks with sliding scale insulin coverage. -Diabetic diet. -A1c pending. DVT prophylaxis: Heparin Discharge Planning: CABG on Saturday Progress Note: Quality VTE Deep Vein Thrombosis/Pulmonary Embolism Present on Admission: No
--- NOTE | 2018-10-13 15:58 | US ---
EXAM DATE: 10/13/2018 3:55 PM EST AGE/SEX: 68 years / Male INDICATIONS: Preop cardiac surgery. CLINICAL DATA: This is the patient's initial encounter. Patient reports that signs and symptoms have been present for 2 days and indicates a pain score of 1/10. MEDICAL/SURGICAL HISTORY: Hypertension. . Cardiac cath. COMPARISON: No prior exams available for comparison. TECHNIQUE: Venous ultrasound of both lower extremities was performed from the inguinal ligament to t he proximal calf. Real-time, color Doppler and spectral tracing, compression and augmentation techni ques were used. FINDINGS: Right Leg: Normal compression of the deep venous system from the inguinal region to the proximal maye f. No echogenic clot is seen. Normal response of the venous system to augmentation and respiration. Left Leg: Normal compression of the deep venous system from the inguinal region to the proximal calf . No echogenic clot is seen. Normal response of the venous system to augmentation and respiration. Other: None. CONCLUSION: 1. Negative for deep venous thrombosis Electronically signed by: Rigo Flowers MD Board Certified Radiologist 10/13/2018 3:57 PM EST
--- NOTE | 2018-10-13 16:05 | US ---
EXAM DATE: 10/13/2018 3:59 PM EST AGE/SEX: 68 years / Male INDICATIONS: Preop cardiac surgery. CLINICAL DATA: This is the patient's initial encounter. Patient reports that signs and symptoms have been present for 1 day and indicates a pain score of 1/10. MEDICAL/SURGICAL HISTORY: Hypertension. . Cardiac cath. COMPARISON: [facility], CTA THOR ABD AORTA W CONTRAST W 3D, 10/10/2018. . VELOCITY PARAMETERS: ICA/CCA Ratio: Right 0.8 , Left 0.9 ICA: Right 75 cm/sec, Left 66 cm/sec CCA: Right 92 cm/sec, Left 76 cm/sec ECA: Right 108 cm/sec, Left 59 cm/sec Vertebral: Right 47 cm/sec antegrade, Left 58 cm/sec antegrade FINDINGS: RIGHT CAROTID: There is no evidence for a hemodynamically significant carotid stenosis. Minimal int imal hyperplasia is present with scattered calcific plaque. LEFT CAROTID: There is no evidence for a hemodynamically significant carotid stenosis. Minimal inti mal hyperplasia is present with scattered calcific plaque. Flow is antegrade in both vertebral arteries. There are no ancillary masses or adenopathy. CONCLUSION: Negative examination for a hemodynamically significant carotid stenosis. Rigo Flowers MD FACR Electronically signed by: Rigo Flowers MD Board Certified Radiologist 10/13/2018 4:04 PM EST
--- NOTE | 2018-10-13 16:05 | US ---
EXAM DATE: 10/13/2018 4:03 PM EST AGE/SEX: 68 years / Male INDICATIONS: Preop cardiac surgery. CLINICAL DATA: This is the patient's initial encounter. Patient reports that signs and symptoms have been present for 1 day and indicates a pain score of 1/10. MEDICAL/SURGICAL HISTORY: Hypertension. . Cardiac cath. COMPARISON: No prior exams available for comparison. MEASUREMENTS: RIGHT THIGH: Proximal:__6 mm Mid:__ 2 mm Distal:__2 mm LEFT THIGH: Proximal:__6 mm Mid:__Non-visualized Distal:__2 mm RIGHT CALF: Proximal:__2 mm Mid:__1 mm Distal:__1 mm LEFT CALF: Proximal:__2 mm Mid:__1 mm Distal:__1 mm FINDINGS: The venous system of the lower extremities are patent by color Doppler imaging. Measurements of the leg veins (in mm) are listed above. CONCLUSION: 1. Venous mapping study as described. Electronically signed by: Jean Lagos MD Board Certified Radiologist 10/13/2018 4:03 PM EST
[2018-10-13 17:22] LABS: Hemoglobin A1c 7.1 % (4.3-6.0)
[2018-10-13] MEDS ORDERED: Heparin 10,000 UNITS/10 ML Vial (for IV use) IV.PUSH PRN ×2 (18:29→18:30)
--- NOTE | 2018-10-13 22:22 | P.PNCA ---
Subjective Interval history: No events overnight Cath today showing multivessel CAD Medications and Allergies Active Medications: Active Medications Amlodipine Besylate (Norvasc) 5 mg PO DAILY [facility] Last Admin: 10/13/18 08:05 Dose: 5 mg Aspirin (Aspirin Chew) 81 mg PO DAILY [facility] Last Admin: 10/13/18 08:06 Dose: 81 mg Atorvastatin Calcium (Lipitor) 40 mg PO HS [facility] Last Admin: 10/13/18 20:42 Dose: 40 mg Chlorhexidine Gluconate (Hibiclens 4% Topical) 1 applicatio TOPICAL [employer]INATOR [facility] Stop: 10/19/18 11:30 Sodium Chloride 77.5 ml/Papaverine HCl 60 mg/Nitroglycerin 100 mcg/Diltiazem HCl 100 mg 0 ml IRRIGATION [employer]ATIONAL [employer]ORDINATOR [facility] Stop: 10/19/18 11:30 Sodium Chloride 500 ml/ (Cefazolin Sodium 500 mg) 0 ml IRRIGATION [employer]ATOR [facility] Stop: 10/19/18 11:31 Dextrose (D50w Vial) 50 ml IV.PUSH UNSCH PRN PRN Reason: PER HYPOGLYCEMIA PROTOCOL Enalaprilat (Vasotec Inj) 1.25 mg IV.PUSH Q6H PRN PRN Reason: SBP> OR = 180, DBP> OR = 100 Glucagon (Glucagon Inj) 1 mg OTHER PRN PRN PRN Reason: for Hypoglycemia Protocol Heparin Sodium (Porcine) (Heparin Inj) 2,500 units IV.PUSH UNSCH PRN PRN Reason: aPTT 25-39 Heparin Sodium (Porcine) (Heparin Inj) 5,000 units IV.PUSH UNSCH PRN PRN Reason: aPTT < 25 Cefazolin Sodium/Dextrose (Ancef 2 Gm Premix Inj) 2 gm in 50 mls @ 100 mls/hr IV.SIG [employer]ATIONAL COORDINATOR [facility] Insulin Human Regular 100 unit (/ Sodium Chloride) 100 mls @ 3 mls/hr IV.CONT TITRATE PRN; Protocol PRN Reason: See Protocol Heparin Sodium/Dextrose (Heparin/D5w 25,000 U/250 Ml) 25,000 unit in 250 mls @ 14 mls/hr IV.CONT TITRATE PRN; Protocol PRN Reason: Per Protocol Last Admin: 10/13/18 17:26 Dose: 1,400 units/hr, 14 mls/hr Sodium Chloride (Ns Inj) 1,000 mls @ 100 mls/hr IV.CONT .Q10H [facility] Last Admin: 10/13/18 05:21 Dose: 100 mls/hr Insulin Aspart (Novolog Insulin Correctional Sugar Inj) 0 unit SQ ACHS [facility]; Protocol Last Admin: 10/13/18 17:25 Dose: 1 unit Metoprolol Tartrate (Lopressor) 12.5 mg PO [employer] [facility] Stop: 10/19/18 11:31 Metoprolol Tartrate (Lopressor) 12.5 mg PO BID [facility] Last Admin: 10/13/18 20:42 Dose: 12.5 mg Nitroglycerin (Nitro-Bid 2% Oint) 1 inch TOPICAL Q6H [facility] Last Admin: 10/13/18 20:42 Dose: 1 inch Nitroglycerin (Nitrostat Sl) 0.4 mg SL Q5M PRN PRN Reason: CHEST PAIN Last Admin: 10/10/18 21:11 Dose: 0.4 mg Sodium Chloride (Ns Flush) 2 ml IV.FLUSH BID [facility] Sodium Chloride (Ns Flush) 2 ml IV.FLUSH PRN PRN PRN Reason: FLUSH AFTER USING IV ACCESS Allergies Allergy/AdvReac Type Severity Reaction Status Date / Time No Known Allergies Allergy Verified 10/10/18 13:20 Home Medications Medication Instructions Recorded Confirmed Type amlodipine 5 mg PO HS 10/10/18 10/10/18 History pravastatin 40 mg PO HS 10/10/18 10/10/18 History Physical Exam Vital signs: Vital Signs 10/12/18 23:00 10/13/18 00:00 10/13/18 01:00 Temperature 98.5 F Pulse Rate 73 69 71 Respiratory Rate 20 Blood Pressure 114/60 Pulse Oximetry 95 10/13/18 02:00 10/13/18 03:00 10/13/18 04:00 Temperature 98.4 F Pulse Rate 72 69 62 Respiratory Rate 18 Blood Pressure 111/65 Pulse Oximetry 95 10/13/18 05:00 10/13/18 06:00 10/13/18 07:00 Temperature Pulse Rate 65 71 63 Respiratory Rate Blood Pressure Pulse Oximetry 10/13/18 08:00 10/13/18 08:12 10/13/18 09:15 Temperature 97.6 F Pulse Rate 72 72 72 Respiratory Rate 16 Blood Pressure 156/96 H 150/76 H Pulse Oximetry 98 10/13/18 09:30 10/13/18 09:45 10/13/18 10:00 Temperature Pulse Rate 62 69 70 Respiratory Rate Blood Pressure 143/89 H 154/97 H 156/91 H Pulse Oximetry 10/13/18 10:30 10/13/18 11:00 10/13/18 11:30 Temperature Pulse Rate 67 69 65 Respiratory Rate Blood Pressure 156/89 H 161/93 H 119/78 Pulse Oximetry 10/13/18 12:00 10/13/18 13:00 10/13/18 14:00 Temperature 97.8 F Pulse Rate 68 66 70 Respiratory Rate 16 Blood Pressure 149/91 H 170/89 H Pulse Oximetry 93 L 10/13/18 15:00 10/13/18 15:10 10/13/18 16:00 Temperature 99.1 F Pulse Rate 69 70 84 Respiratory Rate 18 Blood Pressure 136/77 Pulse Oximetry 91 L 10/13/18 16:27 10/13/18 17:00 10/13/18 18:00 Temperature Pulse Rate 74 82 78 Respiratory Rate Blood Pressure 132/80 Pulse Oximetry 10/13/18 19:00 10/13/18 20:00 Temperature 97.9 F Pulse Rate 82 83 Respiratory Rate 18 Blood Pressure 155/79 H Pulse Oximetry 93 L Intake & Output 10/13/18 10/13/18 10/14/18 06:59 18:59 06:59 Intake Total 480 / 480 971 / 971 Output Total 950 / 950 800 / 800 Balance -470 / -470 171 / 171 Weight 131.4 kg Intake: IV 251 / 251 Heparin/NS PF Inj 1,000 ML @ 0 1 / 1 mls/hr .ROUTE .[facility] Rx#: [id number] Heparin/D5W 25,000 U/250 mL 25, 250 / 250 000 unit In 250 ml @ 1,000 UNITS/HR 10 mls/hr IV.CONT TITRATE PRN Rx#:[id number] Oral 480 / 480 720 / 720 Output: Urine 950 / 950 800 / 800 Other: Date of Last Bowel Movement 10/10/18 10/13/18 # Bowel Movements 0 Narrative: GENERAL: NAD, AAOx3 SKIN: Warm and dry. HEAD: Atraumatic. Normocephalic. EYES: Pupils equal and round. No scleral icterus. No injection or drainage. ENT: No nasal bleeding or discharge. Mucous membranes pink and moist. NECK: Trachea midline. No JVD. CARDIOVASCULAR: Regular rate and rhythm. RESPIRATORY: No accessory muscle use. Clear to auscultation. Breath sounds equal bilaterally. GASTROINTESTINAL: Abdomen soft, non-tender, nondistended. Hepatic and splenic margins not palpable. MUSCULOSKELETAL: Extremities without clubbing, cyanosis, or edema. No obvious deformities. NEUROLOGICAL: Awake and alert. No obvious cranial nerve deficits. Motor grossly within normal limits. Five out of 5 muscle strength in the arms and legs. Normal speech. PSYCHIATRIC: Appropriate mood and affect; insight and judgment normal. Results 10/13/18 01:47 10/12/18 01:55 Coagulation 10/12/18 10/12/18 10/12/18 Range/Units 01:55 10:25 19:35 APTT 45.5 H D 38.0 H 43.9 H (23.4-31.7) sec 10/13/18 10/13/18 Range/Units 01:47 20:19 APTT 40.8 H 32.3 H D (23.4-31.7) sec CBC 10/12/18 10/13/18 Range/Units 01:55 01:47 WBC 6.9 6.8 (4.0-11.0) th/mm3 RBC 4.68 4.89 (4.50-5.90) mil/mm3 Hgb 14.9 15.0 (13.0-17.0) gm/dL Hct 42.1 43.0 (39.0-51.0) % Plt Count 177 176 (150-450) th/mm3 Comprehensive Metabolic Panel 10/12/18 Range/Units 01:55 Sodium 144 (136-145) meq/L Potassium 3.9 (3.5-5.1) meq/L Chloride 110 H (98-107) meq/L Carbon Dioxide 25.9 (21.0-32.0) meq/L BUN 17 (7-18) mg/dL Creatinine 0.96 (0.60-1.30) mg/dL Calcium 8.6 (8.5-10.1) mg/dL Intake and Output 10/13/18 10/13/18 10/13/18 06:59 14:59 22:59 Intake Total 480 / 480 970 / 970 Output Total 950 / 950 800 / 800 Balance -470 / -470 170 / 170 Intake: IV 1 / 1 250 / 250 Heparin/NS PF Inj 1,000 ML @ 0 1 / 1 mls/hr .ROUTE .[facility] Rx#: [id number] Heparin/D5W 25,000 U/250 mL 25, 250 / 250 000 unit In 250 ml @ 1,000 UNITS/HR 10 mls/hr IV.CONT TITRATE PRN Rx#:[id number] Oral 480 / 480 720 / 720 Output: Urine 950 / 950 800 / 800 Other: Date of Last Bowel Movement 10/10/18 10/10/18 10/13/18 # Bowel Movements 0 Weight 131.4 kg - Imaging and Cardiology Imaging: Impressions Carotid Doppler Study 10/13/18 11:30 CONCLUSION: Negative examination for a hemodynamically significant carotid stenosis. Rigo Flowers MD FACR Chest X-Ray 10/13/18 11:30 CONCLUSION: Marked eventration right hemidiaphragm otherwise negative Lower Extremity Ultrasound 10/13/18 11:30 CONCLUSION: 1. Venous mapping study as described. Venous Doppler Study 10/13/18 11:30 CONCLUSION: 1. Negative for deep venous thrombosis Assessment and Plan - Assessment (1) NSTEMI (non-ST elevated myocardial infarction) Code(s): I21.4 - Non-ST elevation (NSTEMI) myocardial infarction Status: Acute (2) Hypertensive urgency Code(s): I16.0 - Hypertensive urgency Status: Acute - Plan 1) NSTEMI Found to have multivessel CAD CT surgery consulted for CABG Will restart heparin drip after TR band removed 2) EF 55-60% 3) DM 4) HTN urgency on arrival Blood pressure some what better controlled
[2018-10-14] MEDS: Insulin NovoLOG Aspart Correctional Sugar Inj SQ SCH ×5 (01:00→20:51)
[2018-10-14] MEDS: Sod Chloride 0.9% Inj 1,000 ML IV.CONT SCH ×3 (04:01→13:18)
[2018-10-14] MEDS: Heparin Drip 25,000 UNIT/250 ML BAG IV.CONT PRN ×2 (04:03→12:13)
[2018-10-14] MEDS: amLODIPine 5 MG Tablet PO SCH (09:05)
[2018-10-14] MEDS: Metoprolol Tartrate 25 MG Tablet PO SCH ×2 (09:06→20:51)
--- NOTE | 2018-10-14 12:25 | P.PNCV ---
- Note Subjective/Hospital Course: This is a 68-year-old male; patient of Dr. Gordon Nazario and also Dr. Berry, who presented to the emergency department with some upper back pain, which was between his shoulder blades. He started working out at the gym a couple of times and thought that the pain was due to his exercise, but he woke up at 3 a.m. with this pain in his back and also took his blood pressure, which was over 200. He tried to go back to bed, woke his up and presented to the emergency department. The patient's blood pressure on arrival was 201/98. He had other workup to include a thoracic aorta CT, which was negative for dissection; relatively negative study. His lab work did come back ruling him in for a non-STEMI with a troponin of 1.83. The patient underwent further evaluation to include a 2-D echo, which showed an ejection fraction of 55%-60%, some trace aortic insufficiency, otherwise unremarkable. Cardiac catheterization revealed proximal LAD 80%, the diagonal was 80%, the OM was 90% , the RCA 100%. We were consulted to evaluate for coronary artery bypass grafting. PAST MEDICAL HISTORY: Includes morbid obesity, chronic bilateral knee pain, hypertension, recently diagnosed diabetes mellitus. He was to start on some Objective: Vital Signs - 24 hr 10/13/18 13:00 10/13/18 14:00 10/13/18 15:00 Temperature Pulse Rate 66 70 69 Respiratory Rate Blood Pressure 170/89 H Pulse Oximetry 10/13/18 15:10 10/13/18 16:00 10/13/18 16:27 Temperature 99.1 F Pulse Rate 70 84 74 Respiratory Rate 18 Blood Pressure 136/77 132/80 Pulse Oximetry 91 L 10/13/18 17:00 10/13/18 18:00 10/13/18 19:00 Temperature Pulse Rate 82 78 82 Respiratory Rate Blood Pressure Pulse Oximetry 10/13/18 20:00 10/13/18 21:00 10/13/18 22:00 Temperature 97.9 F Pulse Rate 83 69 77 Respiratory Rate 18 Blood Pressure 155/79 H Pulse Oximetry 93 L 10/13/18 23:00 10/14/18 00:00 10/14/18 01:00 Temperature 98.7 F Pulse Rate 60 71 67 Respiratory Rate 18 Blood Pressure 157/80 H Pulse Oximetry 94 L 10/14/18 02:00 10/14/18 03:00 10/14/18 04:00 Temperature 98.0 F Pulse Rate 76 56 L 68 Respiratory Rate 18 Blood Pressure 124/79 Pulse Oximetry 93 L 10/14/18 05:00 10/14/18 06:00 10/14/18 07:00 Temperature Pulse Rate 67 59 L 57 L Respiratory Rate Blood Pressure Pulse Oximetry 10/14/18 07:57 10/14/18 08:00 10/14/18 09:00 Temperature 97.7 F Pulse Rate 68 68 82 Respiratory Rate 16 Blood Pressure 154/90 H Pulse Oximetry 96 10/14/18 10:00 10/14/18 11:00 10/14/18 12:00 Temperature 97.5 F L Pulse Rate 84 69 73 Respiratory Rate 16 Blood Pressure 139/81 Pulse Oximetry 95 Labs: Laboratory Results - last 12 hr 10/14/18 10/14/18 10/14/18 02:33 02:33 07:59 APTT 35.9 H POC Glucose 155 H Blood Type O Negative Antibody Screen Negative MTS Gel Crossmatch See Detail 10/14/18 10/14/18 10:30 11:54 APTT 47.4 H D POC Glucose 170 H Blood Type Antibody Screen MTS Gel Crossmatch Result Diagrams: 10/13/18 01:47 10/12/18 01:55
--- NOTE | 2018-10-14 12:47 | ECG ---
Date Performed: 10/13/2018 Time Performed: 13:18:16 PTAGE: 68 years EKG: Sinus rhythm . Right bundle branch block Inferior infarct - age undetermined Low QRS voltages in precordial leads Abnormal ECG NO PREVIOUS TRACING DOCTOR: Alden Joshi Interpretating Date/Time 10/14/2018 12:39:05
[2018-10-14] MEDS ORDERED: Morphine Sulfate Inj 2 MG/ML Vial IV.PUSH ONE (13:45)
--- NOTE | 2018-10-14 15:34 | P.PNIM ---
Subjective Interval history: Nursing reports patient did have some chest pain. Only partially responded to nitro, morphine did more to alleviate it. On heparin drip. Otherwise no new complaints. Physical Exam Vital signs: Vital Signs 10/13/18 16:00 10/13/18 16:27 10/13/18 17:00 Temperature Pulse Rate 84 74 82 Respiratory Rate Blood Pressure 132/80 Pulse Oximetry 10/13/18 18:00 10/13/18 19:00 10/13/18 20:00 Temperature 97.9 F Pulse Rate 78 82 83 Respiratory Rate 18 Blood Pressure 155/79 H Pulse Oximetry 93 L 10/13/18 21:00 10/13/18 22:00 10/13/18 23:00 Temperature Pulse Rate 69 77 60 Respiratory Rate Blood Pressure Pulse Oximetry 10/14/18 00:00 10/14/18 01:00 10/14/18 02:00 Temperature 98.7 F Pulse Rate 71 67 76 Respiratory Rate 18 Blood Pressure 157/80 H Pulse Oximetry 94 L 10/14/18 03:00 10/14/18 04:00 10/14/18 05:00 Temperature 98.0 F Pulse Rate 56 L 68 67 Respiratory Rate 18 Blood Pressure 124/79 Pulse Oximetry 93 L 10/14/18 06:00 10/14/18 07:00 10/14/18 07:57 Temperature 97.7 F Pulse Rate 59 L 57 L 68 Respiratory Rate 16 Blood Pressure 154/90 H Pulse Oximetry 96 10/14/18 08:00 10/14/18 09:00 10/14/18 10:00 Temperature Pulse Rate 68 82 84 Respiratory Rate Blood Pressure Pulse Oximetry 10/14/18 11:00 10/14/18 12:00 10/14/18 13:00 Temperature 97.5 F L Pulse Rate 69 72 76 Respiratory Rate 16 Blood Pressure 139/81 Pulse Oximetry 95 10/14/18 13:14 10/14/18 13:18 10/14/18 13:24 Temperature Pulse Rate 87 90 82 Respiratory Rate 16 16 Blood Pressure 157/101 H 159/85 H 143/85 H Pulse Oximetry 92 L 94 L 10/14/18 13:30 10/14/18 13:31 10/14/18 14:00 Temperature Pulse Rate 85 78 Respiratory Rate Blood Pressure 163/91 H Pulse Oximetry 93 L 94 L 10/14/18 14:02 Temperature Pulse Rate 76 Respiratory Rate Blood Pressure 172/91 H Pulse Oximetry 93 L Intake & Output 10/13/18 10/14/18 10/14/18 18:59 06:59 18:59 Intake Total 971 / 971 1490 / 1490 1250 / 1250 Output Total 800 / 800 600 / 600 Balance 171 / 171 890 / 890 1250 / 1250 Weight 131 kg Intake: IV 251 / 251 1250 / 1250 1250 / 1250 Heparin/NS PF Inj 1,000 ML @ 0 1 / 1 mls/hr .ROUTE [facility] Rx#: [id number] Heparin/D5W 25,000 U/250 mL 25, 250 / 250 250 / 250 250 / 250 000 unit In 250 ml @ 1,500 UNITS/HR 15 mls/hr IV.CONT TITRATE PRN Rx#:[id number] NS Inj 1,000 ML @ 100 mls/hr IV 1000 / 1000 1000 / 1000 .CONT .Q10H [facility] Rx#:[id number] Oral 720 / 720 240 / 240 Output: Urine 800 / 800 600 / 600 Other: Date of Last Bowel Movement 10/13/18 10/14/18 Narrative: Heart sounds regular rate and rhythm, no murmurs No lower extremity edema Clear lungs bilaterally, unlabored breathing Awake and alert, no acute distress Results Labs CBC & Chem 7: 10/13/18 01:47 10/12/18 01:55 Labs: Microbiology 10/14/18 08:44 Stool Stool Occult Blood ([facility]NA) - Final Hemoccult negative Imaging Imaging: Impressions Carotid Doppler Study 10/13/18 11:30 CONCLUSION: Negative examination for a hemodynamically significant carotid stenosis. Rigo Flowers MD FACR Lower Extremity Ultrasound 10/13/18 11:30 CONCLUSION: 1. Venous mapping study as described. Venous Doppler Study 10/13/18 11:30 CONCLUSION: 1. Negative for deep venous thrombosis Assessment and Plan (1) NSTEMI (non-ST elevated myocardial infarction): Code(s): I21.4 - Non-ST elevation (NSTEMI) myocardial infarction Status: Acute (2) Hypertensive urgency: Code(s): I16.0 - Hypertensive urgency Status: Acute Plan NST [facility] Hypertensive emergency Heparin drip, aspirin, statin, beta-day, cardiology following, CABG anticipated tomorrow Diabetes Accu-Cheks and sliding scale Progress Note: Quality VTE Deep Vein Thrombosis/Pulmonary Embolism Present on Admission: No
--- NOTE | 2018-10-14 18:18 | P.PNCA ---
Subjective Interval history: Mild chest pain relieved with Morphine Medications and Allergies Active Medications: Active Medications Amlodipine Besylate (Norvasc) 5 mg PO DAILY [facility] Last Admin: 10/14/18 09:05 Dose: 5 mg Aspirin (Aspirin Chew) 81 mg PO DAILY [facility] Last Admin: 10/14/18 09:04 Dose: 81 mg Atorvastatin Calcium (Lipitor) 40 mg PO HS [facility] Last Admin: 10/13/18 20:42 Dose: 40 mg Chlorhexidine Gluconate (Hibiclens 4% Topical) 1 applicatio [employer]ICAL [employer]ACHINIST [employer] [facility] Stop: 10/19/18 11:30 Sodium Chloride 77.5 ml/Papaverine HCl 60 mg/Nitroglycerin 100 mcg/Diltiazem HCl 100 mg 0 ml IRR[employer]ATION [employer]ACHINIST [employer] [facility] Stop: 10/19/18 11:30 Sodium Chloride 500 ml/ (Cefazolin Sodium 500 mg) 0 ml IRR[employer]ATION MACHINIST [employer] [facility] Stop: 10/19/18 11:31 Dextrose (D50w Vial) 50 ml IV.PUSH UNSCH PRN PRN Reason: PER HYPOGLYCEMIA PROTOCOL Glucagon (Glucagon Inj) 1 mg OTHER PRN PRN PRN Reason: for Hypoglycemia Protocol Heparin Sodium (Porcine) (Heparin Inj) 2,500 units IV.PUSH UNSCH PRN PRN Reason: aPTT 25-39 Last Admin: 10/14/18 03:57 Dose: 2,500 units Heparin Sodium (Porcine) (Heparin Inj) 5,000 units IV.PUSH UNSCH PRN PRN Reason: aPTT < 25 Cefazolin Sodium/Dextrose (Ancef 2 Gm Premix Inj) 2 gm in 50 mls @ 100 mls/hr IV.SIG [employer]ACHINIST [employer] [facility] Insulin Human Regular 100 unit (/ Sodium Chloride) 100 mls @ 3 mls/hr IV.CONT TITRATE PRN; Protocol PRN Reason: See Protocol Heparin Sodium/Dextrose (Heparin/D5w 25,000 U/250 Ml) 25,000 unit in 250 mls @ 15 mls/hr IV.CONT TITRATE PRN; Protocol PRN Reason: Per Protocol Last Admin: 10/14/18 12:13 Dose: 1,600 units/hr, 16 mls/hr Sodium Chloride (Ns Inj) 1,000 mls @ 100 mls/hr IV.CONT .Q10H [facility] Last Admin: 10/14/18 13:18 Dose: 100 mls/hr Insulin Aspart (Novolog Insulin Correctional Sugar Inj) 0 unit SQ ACHS [facility]; Protocol Last Admin: 10/14/18 17:24 Dose: 1 unit Metoprolol Tartrate (Lopressor) 12.5 mg PO [employer]ACH[employer]IST [employer] [facility] Stop: 10/19/18 11:31 Metoprolol Tartrate (Lopressor) 12.5 mg PO BID [facility] Last Admin: 10/14/18 09:06 Dose: 12.5 mg Nitroglycerin (Nitro-Bid 2% Oint) 1 inch TOPICAL Q6H [facility] Last Admin: 10/14/18 13:40 Dose: 1 inch Nitroglycerin (Nitrostat Sl) 0.4 mg SL Q5M PRN PRN Reason: CHEST PAIN Last Admin: 10/14/18 13:11 Dose: 0.4 mg Sodium Chloride (Ns Flush) 2 ml IV.FLUSH BID [facility] Last Admin: 10/14/18 09:08 Dose: 2 ml Sodium Chloride (Ns Flush) 2 ml IV.FLUSH PRN PRN PRN Reason: FLUSH AFTER USING IV ACCESS Allergies Allergy/AdvReac Type Severity Reaction Status Date / Time No Known Allergies Allergy Verified 10/10/18 13:20 Home Medications Medication Instructions Recorded Confirmed Type amlodipine 5 mg PO HS 10/10/18 10/10/18 History pravastatin 40 mg PO HS 10/10/18 10/10/18 History Physical Exam Vital signs: Vital Signs 10/13/18 19:00 10/13/18 20:00 10/13/18 21:00 Temperature 97.9 F Pulse Rate 82 83 69 Respiratory Rate 18 Blood Pressure 155/79 H Pulse Oximetry 93 L 10/13/18 22:00 10/13/18 23:00 10/14/18 00:00 Temperature 98.7 F Pulse Rate 77 60 71 Respiratory Rate 18 Blood Pressure 157/80 H Pulse Oximetry 94 L 10/14/18 01:00 10/14/18 02:00 10/14/18 03:00 Temperature Pulse Rate 67 76 56 L Respiratory Rate Blood Pressure Pulse Oximetry 10/14/18 04:00 10/14/18 05:00 10/14/18 06:00 Temperature 98.0 F Pulse Rate 68 67 59 L Respiratory Rate 18 Blood Pressure 124/79 Pulse Oximetry 93 L 10/14/18 07:00 10/14/18 07:57 10/14/18 08:00 Temperature 97.7 F Pulse Rate 57 L 68 68 Respiratory Rate 16 Blood Pressure 154/90 H Pulse Oximetry 96 10/14/18 09:00 10/14/18 10:00 10/14/18 11:00 Temperature Pulse Rate 82 84 69 Respiratory Rate Blood Pressure Pulse Oximetry 10/14/18 12:00 10/14/18 13:00 10/14/18 13:14 Temperature 97.5 F L Pulse Rate 72 76 87 Respiratory Rate 16 16 Blood Pressure 139/81 157/101 H Pulse Oximetry 95 10/14/18 13:18 10/14/18 13:24 10/14/18 13:30 Temperature Pulse Rate 90 82 Respiratory Rate 16 Blood Pressure 159/85 H 143/85 H Pulse Oximetry 92 L 94 L 93 L 10/14/18 13:31 10/14/18 14:00 10/14/18 14:02 Temperature Pulse Rate 85 78 76 Respiratory Rate Blood Pressure 163/91 H 172/91 H Pulse Oximetry 94 L 93 L 10/14/18 15:00 10/14/18 15:53 10/14/18 16:00 Temperature 97.6 F Pulse Rate 69 82 82 Respiratory Rate 16 Blood Pressure 131/76 Pulse Oximetry 93 L 10/14/18 17:00 10/14/18 18:00 Temperature Pulse Rate 86 90 Respiratory Rate Blood Pressure Pulse Oximetry Intake & Output 10/13/18 10/14/18 10/14/18 18:59 06:59 18:59 Intake Total 971 / 971 1490 / 1490 2800 / 2800 Output Total 800 / 800 600 / 600 Balance 171 / 171 890 / 890 2800 / 2800 Weight 131 kg Intake: IV 251 / 251 1250 / 1250 1250 / 1250 Heparin/NS PF Inj 1,000 ML @ 0 1 / 1 mls/hr .ROUTE .STK-MED ONE Rx#: [id number] Heparin/D5W 25,000 U/250 mL 25, 250 / 250 250 / 250 250 / 250 000 unit In 250 ml @ 1,500 UNITS/HR 15 mls/hr IV.CONT TITRATE PRN Rx#:[id number] NS Inj 1,000 ML @ 100 mls/hr IV 1000 / 1000 1000 / 1000 .CONT .Q10H [facility] Rx#:[id number] Oral 720 / 720 240 / 240 1550 / 1550 Output: Urine 800 / 800 600 / 600 Other: # Voids 4 Date of Last Bowel Movement 10/13/18 10/14/18 Narrative: GENERAL: NAD, AAOx3 SKIN: Warm and dry. HEAD: Atraumatic. Normocephalic. EYES: Pupils equal and round. No scleral icterus. No injection or drainage. ENT: No nasal bleeding or discharge. Mucous membranes pink and moist. NECK: Trachea midline. No JVD. CARDIOVASCULAR: Regular rate and rhythm. RESPIRATORY: No accessory muscle use. Clear to auscultation. Breath sounds equal bilaterally. GASTROINTESTINAL: Abdomen soft, non-tender, nondistended. Hepatic and splenic margins not palpable. MUSCULOSKELETAL: Extremities without clubbing, cyanosis, or edema. No obvious deformities. NEUROLOGICAL: Awake and alert. No obvious cranial nerve deficits. Motor grossly within normal limits. Five out of 5 muscle strength in the arms and legs. Normal speech. PSYCHIATRIC: Appropriate mood and affect; insight and judgment normal. Results 10/13/18 01:47 10/12/18 01:55 Coagulation 10/12/18 10/13/18 10/13/18 Range/Units 19:35 01:47 20:19 APTT 43.9 H 40.8 H 32.3 H D (23.4-31.7) sec 10/14/18 10/14/18 10/14/18 Range/Units 02:33 10:30 15:50 APTT 35.9 H 47.4 H D 45.0 H (23.4-31.7) sec CBC 10/13/18 Range/Units 01:47 WBC 6.8 (4.0-11.0) th/mm3 RBC 4.89 (4.50-5.90) mil/mm3 Hgb 15.0 (13.0-17.0) gm/dL Hct 43.0 (39.0-51.0) % Plt Count 176 (150-450) th/mm3 Intake and Output 10/14/18 10/14/18 10/14/18 06:59 14:59 22:59 Intake Total 1490 / 1490 1250 / 1250 1550 / 1550 Output Total 600 / 600 Balance 890 / 890 1250 / 1250 1550 / 1550 Intake: IV 1250 / 1250 1250 / 1250 Heparin/D5W 25,000 U/250 mL 25, 250 / 250 250 / 250 000 unit In 250 ml @ 1,500 UNITS/HR 15 mls/hr IV.CONT TITRATE PRN Rx#:[id number] NS Inj 1,000 ML @ 100 mls/hr IV 1000 / 1000 1000 / 1000 .CONT .Q10H [facility] Rx#:[id number] Oral 240 / 240 1550 / 1550 Output: Urine 600 / 600 Other: # Voids 4 Date of Last Bowel Movement 10/14/18 10/14/18 Weight 131 kg - Imaging and Cardiology Imaging: Impressions Carotid Doppler Study 10/13/18 11:30 CONCLUSION: Negative examination for a hemodynamically significant carotid stenosis. Rigo Flowers MD FACR Chest X-Ray 10/13/18 11:30 CONCLUSION: Marked eventration right hemidiaphragm otherwise negative Lower Extremity Ultrasound 10/13/18 11:30 CONCLUSION: 1. Venous mapping study as described. Venous Doppler Study 10/13/18 11:30 CONCLUSION: 1. Negative for deep venous thrombosis Assessment and Plan - Assessment (1) NSTEMI (non-ST elevated myocardial infarction) Code(s): I21.4 - Non-ST elevation (NSTEMI) myocardial infarction Status: Acute (2) Hypertensive urgency Code(s): I16.0 - Hypertensive urgency Status: Acute - Plan 1) NSTEMI Found to have multivessel CAD CT surgery consulted for CABG Heparin drip Possible CABG tomorrow per notes 2) EF 55-60% 3) DM 4) HTN urgency on arrival Blood pressure some what better controlled
[2018-10-15] MEDS ORDERED: ceFAZolin 2 GM Premix Inj 2 GM/50 ML PIGGYBACK IV.SIG ONE ×2 (06:00→11:28)
[2018-10-15] MEDS ORDERED: MethylPREDNISolone Sod Succinate Inj 125 MG/2 ML Vial ONE (06:00)
[2018-10-15] MEDS ORDERED: Heparin - SQ 10,000 UNITS/ML Vial ONE (06:00)
[2018-10-15] MEDS ORDERED: Morphine Inj 4 MG/ML Vial ONE (07:00)
[2018-10-15] MEDS ORDERED: Nitroglycerin Drip Premix 50 MG/250 ML BOTTLE ONE (07:00)
[2018-10-15] MEDS ORDERED: Metoprolol Inj 5 MG/5 ML Vial IV.PUSH ONE (07:10)
[2018-10-15] MEDS ORDERED: Sodium Chlor 0.9% Inj 500 ML IV.CONT ONE (07:10)
[2018-10-15] MEDS ORDERED: Heparin - SQ 10,000 UNITS/ML Vial OTHER ONE (07:10)
[2018-10-15] MEDS ORDERED: Lidocaine PF 1% Inj 5 ML Syringe OTHER ONE (07:10)
[2018-10-15] MEDS ORDERED: Calcium Chloride Inj 1 GM/10 ML Syringe IV.CONT ONE (07:10)
[2018-10-15] MEDS ORDERED: Dexmedetomidine Inj 200 MCG/2 ML Vial IV.CONT ONE (07:10)
[2018-10-15] MEDS ORDERED: Phenylephrine/NS 1000 MCG/10ML Syringe IV.PUSH ONE (07:10)
[2018-10-15] MEDS ORDERED: Propofol Inj 500 MG/50 ML Vial IV.SIG ONE (07:10)
[2018-10-15] MEDS ORDERED: Aminocaproic Acid Inj 5,000 MG/20 ML Vial IV.CONT ONE (07:10)
[2018-10-15] MEDS ORDERED: Sod Chloride 0.9% Inj 1,000 ML IV.CONT ONE (07:10)
[2018-10-15] MEDS ORDERED: Protamine Sulfate Inj 50 MG/5 ML Vial IV.CONT ONE (07:10)
[2018-10-15] MEDS ORDERED: Sodium Chlor 0.9% Inj 100 ML IV.CONT ONE (07:10)
[2018-10-15] MEDS ORDERED: Cardioplegic Irr Soln 2,000 ML IRRIGATION ONE (07:30)
[2018-10-15] MEDS ORDERED: Albumin Human 25% Inj 50 ML IV.SIG ONE (07:31)
[2018-10-15] MEDS ORDERED: Calcium Chloride Inj 1 GM/10 ML Syringe ONE (07:31)
[2018-10-15] MEDS ORDERED: Heparin 10,000 UNITS/10 ML Vial (for IV use) ONE (07:31)
[2018-10-15] MEDS ORDERED: Protamine Sulfate Inj 50 MG/5 ML Vial ONE (10:04)
[2018-10-15] MEDS ORDERED: Magnesium Sulfate Inj 2 GM in Sodium Chlor 0.9% Inj 96 ML IV.SIG PRN ×4 (12:03)
[2018-10-15] MEDS ORDERED: Dextrose 50% in Water 50 ML Vial IV.PUSH PRN (12:03)
[2018-10-15] MEDS ORDERED: Albumin Human 5% Inj 250 ML IV.SIG PRN (12:03)
[2018-10-15] MEDS ORDERED: RESP: Racemic Epinephrine 2.25% 0.5 ML Neb NEB PRN (12:03)
[2018-10-15] MEDS ORDERED: Calcium Chloride Inj 1 GM/10 ML Syringe IV.PUSH PRN (12:03)
[2018-10-15] MEDS ORDERED: Metoprolol Inj 5 MG/5 ML Vial IV.PUSH PRN (12:03)
[2018-10-15] MEDS ORDERED: hydrALAZINE HCl Inj 20 MG/ML Vial IV.PUSH PRN (12:03)
[2018-10-15] MEDS ORDERED: Post-op Orders (for Pharmacy) OTHER STA (12:03)
[2018-10-15] MEDS ORDERED: Potassium Chlor 20 mEq Premix 20 MEQ/100 ML PIGGYBACK IV.SIG PRN ×3 (12:03)
[2018-10-15] MEDS ORDERED: Dexmedetomidine Inj 200 MCG in Sodium Chlor 0.9% Inj 48 ML IV.CONT PRN (12:03)
[2018-10-15] MEDS ORDERED: Calcium Chloride Inj 1 GM in Sodium Chlor 0.9% Inj 100 ML IV.SIG PRN (12:03)
[2018-10-15] MEDS: Insulin Regular (For Infusion) 100 UNIT in Sodium Chlor 0.9% Inj 99 ML IV.CONT PRN (12:06)
--- NOTE | 2018-10-15 12:14 | P.OP ---
- Preoperative Diagnosis (1) CAD (coronary artery disease) (2) NSTEMI (non-ST elevated myocardial infarction) Postoperative Diagnosis: same Date of procedure: 10/15/18 Procedure: CABG x 3 ALBRIGHT to LAD - fair SVG to OM - good SVG to PDA - good EVH Anesthesia: JENNIFFER Surgeon: Gisella Leal MD Carpenter Helper: Dianna Conn Pathology: none sent Operation and Findings: The risks, benefits, complications, treatment options, and expected outcomes were discussed with the patient. The possibilities of reaction to medication, pulmonary aspiration, perforation of viscus, bleeding, recurrent infection, the need for additional procedures, failure to diagnose a condition, and creating a complication requiring transfusion or operation were discussed with the patient. The patient concurred with the proposed plan, giving informed consent. The site of surgery properly noted/marked. The patient was taken to Operating Room, identified as [facility] [facility] and the procedure verified as CABG, EVH. A Time Out was held and the above information confirmed. Standard monitoring lines and Frank catheter were placed. General anesthesia was induced. The patient was prepped and draped in a sterile fashion. A median sternotomy was performed and electrocautery was used to obtain hemostasis. The left internal mammary artery was procured as a pedicle from the 7th rib to the 1st rib in the usual manner. Simultaneously left greater saphenous vein was procured from the left leg using a minimally invasive endoscopic technique. The vein was prepared for anastomosis and the leg wound was irrigated and closed in 2 layers. The pericardium was opened and a pericardial sling was created using interrupted 0 silk sutures. The patient was heparinized for cardiopulmonary bypass and the distal mammary pedicle was instrumented for anastomosis. The heart was instrumented for cardiopulmonary bypass in the usual manner. Antegrade blood cardioplegia was employed. The patient was placed on cardiopulmonary bypass. An aortic cross-clamp was applied and the heart was arrested using cold blood cardioplegia. Antegrade cardioplegia was administered after he each anastomosis. After adequate arrest, the distal right coronary circulation was investigated and the PDA was opened with a Berne blade and found to be a 1.5 millimeter good target. Saphenous vein was approximated to the PDA artery using a running 7 0 Prolene suture. The graft was measured for length and orientation and the proximal anastomosis was constructed to the ascending aorta using a running 5 0 Prolene suture after creating an aortotomy with a 5 millimeter punch. The 1st circumflex marginal artery was then opened with a Berne blade and found to be a 1.5 millimeter good target. Saphenous vein was approximated to the OM1 artery using a running 7 0 Prolene suture. The graft was measured for length and orientation and was suspended from the pericardium. The distal LAD was opened with a Berne blade and found to be a 1 millimeter fair target. The left internal mammary artery was approximated to the LAD using a running 7 0 Prolene suture. The pedicle was attached to the epicardium using interrupted 5 0 silk suture. The patient was systemically rewarmed and received a hotshot dose of warm blood cardioplegia. The aorta was vented and the proximal anastomosis to the OM1 graft was accomplished using a running 5 0 Prolene suture after creating an aortotomy was a 5 millimeter punch. The cross-clamp was removed and all proximal and distal anastomoses were examined for hemostasis. The patient was weaned from cardiopulmonary bypass. Protamine was given. There was no adverse reaction. Decannulation was carried out without incident. Wound was checked for hemostasis which was obtained using electrocautery. A 36 Azeri mediastinal and 32 Azeri left pleural chest tubes were placed and secured to the skin with 0 silk suture. The sternum was closed with stainless steel wire. The fascia was closed with 1. PDS. The subcutaneous tissue was closed using a running 2-0 Vicryl suture. The skin was closed with 4-0 Monocryl. Sterile dressings were placed. At the end of the operation, all sponge, instruments, and needle counts were correct. The patient was transferred to the CVICU in stable condition. Findings: The diagonal was too small to graft XC: 51 min CPB: 59 min Drains: mediastinal x 1 pleural x 1 Complications: none
[2018-10-15] MEDS ORDERED: Potassium Chlor 20 mEq Premix 20 MEQ/100 ML PIGGYBACK IV.SIG ONE (12:17)
[2018-10-15] MEDS ORDERED: fentaNYL Citrate Inj 250 MCG/5 ML Ampul ONE ×2 (12:21→12:22)
--- NOTE | 2018-10-15 12:47 | XR ---
EXAM DATE: 10/15/2018 12:44 PM EST AGE/SEX: 68 years / Male INDICATIONS: Post-op Coronary artery bypass graft surgery. CLINICAL DATA: This is the patient's subsequent encounter. Patient reports that signs and symptoms h ave been present for 4 - 6 days and indicates a pain score of Nonresponsive. MEDICAL/SURGICAL HISTORY: Cardiovascular disease. Non-responsive. COMPARISON: C, CHEST 2V PA&LAT, 10/13/2018. . FINDINGS: ET tube, nasogastric tube, left chest tube and right central venous catheter in good position. The heart is enlarged. Mild interstitial prominence is evident. There is no evidence consolidation, pleural effusion or pneu mothorax. CONCLUSION: Support apparatus in good position Under aerated otherwise negative Electronically signed by: Rigo Flowers MD Board Certified Radiologist 10/15/2018 12:45 PM EST
[2018-10-15] MEDS: Insulin NovoLOG Aspart Correctional Sugar Inj SQ SCH ×4 (13:42→21:16)
[2018-10-15] MEDS: amLODIPine 5 MG Tablet PO SCH (13:43)
[2018-10-15] MEDS ORDERED: ceFAZolin Inj 2,000 MG in Sodium Chlor 0.9% Inj 80 ML IV.SIG SCH (14:00)
[2018-10-15] MEDS: Amiodarone 200 MG Tablet PO SCH ×2 (15:38→21:35)
[2018-10-15] MEDS: fentaNYL Citrate Inj 100 MCG/2 ML Ampul IV.PUSH PRN ×3 (16:24→21:36)
[2018-10-15] MEDS: ceFAZolin 2 GM Premix Inj 2 GM/50 ML PIGGYBACK IV.SIG SCH (18:09)
--- NOTE | 2018-10-15 23:29 | P.PNCA ---
Subjective Interval history: s/p CABG Doing well Extubated Insulin drip, no vasopressors Medications and Allergies Active Medications: Active Medications Albuterol (Duoneb Neb (Prn)) 1 ampul NEB Q2HR NEB PRN PRN Reason: WHEEZING Albuterol (Duoneb Neb (Nieves)) 1 ampul NEB Q6HR NEB [facility] Last Admin: 10/15/18 20:54 Dose: 1 ampul Amiodarone HCl (Cordarone) 400 mg PO Q8HR [facility] Last Admin: 10/15/18 21:35 Dose: 400 mg Amlodipine Besylate (Norvasc) 5 mg PO DAILY [facility] Last Admin: 10/15/18 13:43 Dose: Not Given Aspirin (Aspirin Chew) 81 mg PO DAILY [facility] Atorvastatin Calcium (Lipitor) 40 mg PO HS [facility] Last Admin: 10/15/18 21:35 Dose: 40 mg Calcium Chloride (Calcium Chloride Inj) 0.5 gm IV.PUSH UNSCH PRN PRN Reason: SEE LABEL COMMENTS Chlorhexidine Gluconate (Hibiclens 4% Topical) 1 applicatio TOPICAL [facility] Stop: 10/19/18 11:30 Sodium Chloride 77.5 ml/Papaverine HCl 60 mg/Nitroglycerin 100 mcg/Diltiazem HCl 100 mg 0 ml IRRIGATION [facility] Stop: 10/19/18 11:30 Last Admin: 10/15/18 09:15 Dose: 1 bag Sodium Chloride 500 ml/ (Cefazolin Sodium 500 mg) 0 ml IRRIGATION [facility] Stop: 10/19/18 11:31 Last Admin: 10/15/18 09:15 Dose: 1 bag Dextrose (D50w Vial) 50 ml IV.PUSH UNSCH PRN PRN Reason: PER HYPOGLYCEMIA PROTOCOL Epinephrine (Racepinephrine 2.25% Neb) 0.5 ml NEB UNSCH X1 PRN PRN Reason: POST EXTUBATION Stop: 10/16/18 12:02 Fentanyl Citrate (Fentanyl Inj) 25 mcg IV.PUSH Q1H PRN PRN Reason: BREAKTHROUGH PAIN Last Admin: 10/15/18 21:36 Dose: 25 mcg Glucagon (Glucagon Inj) 1 mg OTHER PRN PRN PRN Reason: for Hypoglycemia Protocol Hydralazine HCl (Apresoline Inj) 10 mg IV.PUSH Q4H PRN PRN Reason: SEE LABEL COMMENTS Cefazolin Sodium/Dextrose (Ancef 2 Gm Premix Inj) 2 gm in 50 mls @ 100 mls/hr IV.SIG [facility] Last Admin: 10/15/18 08:01 Dose: 100 mls/hr Acetaminophen (Ofirmev Inj) 1,000 mg in 100 mls @ 400 mls/hr IV.SIG Q6H [facility] Stop: 10/16/18 07:14 Last Infusion: 10/15/18 19:15 Dose: Infused Albumin Human (Buminate 5% Inj) 250 mls @ 250 mls/hr IV.SIG UNSCH PRN PRN Reason: SEE LABEL COMMENTS Last Infusion: 10/15/18 15:26 Dose: Infused Calcium Chloride 1 gm/ Sodium (Chloride) 110 mls @ 100 mls/hr IV.SIG PRN PRN PRN Reason: SEE LABEL COMMENTS Last Infusion: 10/15/18 18:45 Dose: Infused Dexmedetomidine HCl 200 mcg/ (Sodium Chloride) 50 mls @ 6.52 mls/hr IV.CONT TITRATE PRN; Protocol PRN Reason: Per Protocol Last Titration: 10/15/18 14:00 Dose: 0 mcg/kg/hr, 0 mls/hr Lactated Ringer's (Lr 1000 Ml Inj) 500 mls @ 500 mls/hr IV.SIG .Q1H PRN PRN Reason: SEE LABEL COMMENTS Last Admin: 10/15/18 14:09 Dose: 500 mls/hr Magnesium Sulfate 2 gm/ Sodium (Chloride) 100 mls @ 50 mls/hr IV.SIG PRN PRN PRN Reason: SEE LABEL COMMENTS Magnesium Sulfate 2 gm/ Sodium (Chloride) 100 mls @ 50 mls/hr IV.SIG PRN PRN PRN Reason: SEE LABEL COMMENTS Potassium Chloride (Kcl 20 Meq Premix Inj) 20 meq in 100 mls @ 50 mls/hr IV.SIG PRN PRN PRN Reason: SEE LABEL COMMENTS Last Admin: 10/15/18 13:54 Dose: 50 mls/hr Potassium Chloride (Kcl 20 Meq Premix Inj) 20 meq in 100 mls @ 50 mls/hr IV.SIG PRN PRN PRN Reason: SEE LABEL COMMENTS Potassium Chloride (Kcl 20 Meq Premix Inj) 20 meq in 100 mls @ 50 mls/hr IV.SIG PRN PRN PRN Reason: SEE LABEL COMMENTS Insulin Human Regular 100 unit (/ Sodium Chloride) 100 mls @ 3 mls/hr IV.CONT TITRATE PRN; Protocol PRN Reason: See Protocol Last Titration: 10/15/18 21:51 Dose: 0 units/hr, 0 mls/hr Cefazolin Sodium/Dextrose (Ancef 2 Gm Premix Inj) 2 gm in 50 mls @ 200 mls/hr IV.SIG Q8H [facility] Stop: 10/17/18 02:14 Last Infusion: 10/15/18 18:50 Dose: Infused Sodium Chloride (Ns Inj) 1,000 mls @ 100 mls/hr IV.CONT .Q10H [facility] Last Admin: 10/14/18 13:18 Dose: 100 mls/hr Insulin Aspart (Novolog Insulin Correctional Sugar Inj) 0 unit SQ [facility]; Protocol Last Admin: 10/15/18 21:16 Dose: Not Given Metoclopramide HCl (Reglan Inj) 10 mg IV.PUSH [facility]; Protocol Last Admin: 10/15/18 21:42 Dose: 10 mg Metoprolol Tartrate (Lopressor) 12.5 mg PO [facility] Stop: 10/19/18 11:31 Last Admin: 10/15/18 05:49 Dose: 12.5 mg Metoprolol Tartrate (Lopressor Inj) 2.5 mg IV.PUSH Q1H PRN PRN Reason: SEE LABEL COMMENTS Ondansetron HCl (Zofran Inj) 4 mg IV.PUSH Q6H PRN PRN Reason: NAUSEA OR VOMITING Oxycodone/Acetaminophen (Percocet 5/325 Mg) 1 tab PO Q3H PRN PRN Reason: PAIN SCALE 1 TO 5 Pantoprazole Sodium (Protonix) 40 mg PO DAILY@06 [facility] Phenylephrine HCl (Neosynephrine Inj) 0.1 mg IV.PUSH UNSCH PRN PRN Reason: SEE LABEL COMMENTS Potassium Chloride (K-Dur) 20 meq PO UNSCH PRN PRN Reason: SEE LABEL COMMENTS Potassium Chloride (K-Dur) 40 meq PO UNSCH PRN PRN Reason: SEE LABEL COMMENTS Sodium Bicarbonate (Sodium Bicarbonate 8.4% Inj) 50 meq IV.PUSH UNSCH PRN PRN Reason: SEE LABEL COMMENTS Sodium Bicarbonate (Sodium Bicarbonate 8.4% Inj) 100 meq IV.PUSH UNSCH PRN PRN Reason: SEE LABEL COMMENTS Sodium Chloride (Ns Flush) 2 ml IV.FLUSH BID [facility] Last Admin: 10/15/18 21:35 Dose: 2 ml Sodium Chloride (Ns Flush) 2 ml IV.FLUSH PRN PRN PRN Reason: FLUSH AFTER USING IV ACCESS Sodium Chloride (Ns Flush) 2 ml IV.FLUSH PRN PRN PRN Reason: FLUSH AFTER USING IV ACCESS Sodium Chloride (Ns Flush) 2 ml IV.FLUSH BID [facility] Last Admin: 10/15/18 21:36 Dose: Not Given Allergies Allergy/AdvReac Type Severity Reaction Status Date / Time No Known Allergies Allergy Verified 10/10/18 13:20 Home Medications Medication Instructions Recorded Confirmed Type amlodipine 5 mg PO HS 10/10/18 10/10/18 History pravastatin 40 mg PO HS 10/10/18 10/10/18 History Physical Exam Vital signs: Vital Signs 10/15/18 00:00 10/15/18 01:00 10/15/18 02:00 Temperature 98.7 F Pulse Rate 77 62 60 Respiratory Rate 16 Blood Pressure 130/85 Pulse Oximetry 96 10/15/18 03:00 10/15/18 04:00 10/15/18 05:00 Temperature 98.6 F Pulse Rate 60 72 66 Respiratory Rate 18 Blood Pressure 151/103 H Pulse Oximetry 92 L 10/15/18 06:00 10/15/18 12:05 10/15/18 12:33 Temperature Pulse Rate 63 72 Respiratory Rate 13 Blood Pressure Pulse Oximetry 98 10/15/18 12:53 10/15/18 13:00 10/15/18 14:38 Temperature 97.4 F L 98.0 F Pulse Rate 71 63 Respiratory Rate 15 12 19 Blood Pressure 118/97 H Pulse Oximetry 98 99 92 L 10/15/18 15:00 10/15/18 15:20 10/15/18 15:30 Temperature 98.0 F Pulse Rate 67 Respiratory Rate 18 25 H Blood Pressure 100/59 L Pulse Oximetry 94 L 95 92 L 10/15/18 15:56 10/15/18 18:00 10/15/18 18:59 Temperature Pulse Rate 73 Respiratory Rate 20 18 Blood Pressure Pulse Oximetry 94 L 10/15/18 19:00 10/15/18 20:53 10/15/18 21:16 Temperature 97.8 F Pulse Rate 83 90 Respiratory Rate 18 20 Blood Pressure 112/73 Pulse Oximetry 94 L 95 Intake & Output 10/15/18 10/15/18 10/16/18 06:59 18:59 06:59 Intake Total 240 / 240 4576 / 4576 100 / 100 Output Total 500 / 500 1650 / 1650 Balance -260 / -260 2926 / 2926 100 / 100 Weight 130.5 kg Intake: IV 1026 / 1026 100 / 100 Precedex Inj 200 MCG In NS Inj 16 / 16 48 ML @ 0.2 MCG/KG/HR 6.52 mls/ hr IV.CONT TITRATE PRN Rx#: [id number] Ofirmev Inj 1,000 mg In 100 ml 100 / 100 100 / 100 @ 400 mls/hr IV.SIG Q6H [facility] Rx# :[id number] Buminate 5% Inj 250 ML @ 250 250 / 250 mls/hr IV.SIG UNSCH PRN Rx#: [id number] Calcium Chloride Inj 1 GM In NS 110 / 110 Inj 100 ML @ 100 mls/hr IV.SIG PRN PRN Rx#:[id number] LR 1000 mL Inj 500 ML @ 500 mls 500 / 500 /hr IV.SIG .Q1H PRN Rx#: [id number] Ancef 2 GM Premix Inj 2 gm In 50 / 50 50 ml @ 200 mls/hr IV.SIG Q8H [facility] Rx#:[id number] Oral 240 / 240 Anesthesia Amount 2800 / 2800 Cell Saver Amount 750 / 750 Output: Urine 500 / 500 Estimated Blood Loss 200 / 200 Urine Amount (Catheter) 1345 / 1345 Indwelling Temp Sensing 1345 / 1345 Catheter Gastric Drainage 25 / 25 Orogastric Tube 25 / 25 Chest Tube Drainage 80 / 80 #2 Pleural/Mediastinal Y 80 / 80 Connected Narrative: GENERAL: NAD, AAOx3 on bipap SKIN: Warm and dry. HEAD: Atraumatic. Normocephalic. EYES: Pupils equal and round. No scleral icterus. No injection or drainage. ENT: No nasal bleeding or discharge. Mucous membranes pink and moist. NECK: Trachea midline. No JVD. CARDIOVASCULAR: Regular rate and rhythm. Sternotomy with covering RESPIRATORY: No accessory muscle use. Clear to auscultation. Breath sounds equal bilaterally. GASTROINTESTINAL: Abdomen soft, non-tender, nondistended. Hepatic and splenic margins not palpable. MUSCULOSKELETAL: Extremities without clubbing, cyanosis, or edema. No obvious deformities. NEUROLOGICAL: Awake and alert. No obvious cranial nerve deficits. Motor grossly within normal limits. Five out of 5 muscle strength in the arms and legs. Normal speech. PSYCHIATRIC: Appropriate mood and affect; insight and judgment normal. - Urinary Catheter Management Indwelling Temp Sensing Catheter Cath placed during this visit: yes Reason for continuing: Hourly intake/output Insertion date: 10/15/18 Insertion time: 07:25 Results 10/13/18 01:47 10/12/18 01:55 Coagulation 10/14/18 10/14/18 10/14/18 Range/Units 02:33 10:30 15:50 APTT 35.9 H 47.4 H D 45.0 H (23.4-31.7) sec 10/15/18 Range/Units 06:28 APTT 34.3 H D (23.4-31.7) sec Intake and Output 10/15/18 10/15/18 10/16/18 14:59 22:59 06:59 Intake Total 4166 / 4166 510 / 510 Output Total 1000 / 1000 650 / 650 Balance 3166 / 3166 -140 / -140 Intake: IV 616 / 616 510 / 510 Precedex Inj 200 MCG In NS Inj 16 / 16 48 ML @ 0.2 MCG/KG/HR 6.52 mls/ hr IV.CONT TITRATE PRN Rx#: [id number] Ofirmev Inj 1,000 mg In 100 ml 100 / 100 100 / 100 @ 400 mls/hr IV.SIG Q6H [facility] Rx# :[id number] Buminate 5% Inj 250 ML @ 250 250 / 250 mls/hr IV.SIG UNSCH PRN Rx#: [id number] Calcium Chloride Inj 1 GM In NS 110 / 110 Inj 100 ML @ 100 mls/hr IV.SIG PRN PRN Rx#:[id number] LR 1000 mL Inj 500 ML @ 500 mls 500 / 500 /hr IV.SIG .Q1H PRN Rx#: [id number] Ancef 2 GM Premix Inj 2 gm In 50 / 50 50 ml @ 200 mls/hr IV.SIG Q8H [facility] Rx#:[id number] Anesthesia Amount 2800 / 2800 Cell Saver Amount 750 / 750 Output: Estimated Blood Loss 200 / 200 Urine Amount (Catheter) 800 / 800 545 / 545 Indwelling Temp Sensing 800 / 800 545 / 545 Catheter Gastric Drainage 25 / 25 Orogastric Tube 25 / 25 Chest Tube Drainage 80 / 80 #2 Pleural/Mediastinal Y 80 / 80 Connected - Imaging and Cardiology Imaging: Impressions Chest X-Ray 10/15/18 12:04 CONCLUSION: Support apparatus in good position Under aerated otherwise negative Assessment and Plan - Assessment (1) NSTEMI (non-ST elevated myocardial infarction) Code(s): I21.4 - Non-ST elevation (NSTEMI) myocardial infarction Status: Acute (2) Hypertensive urgency Code(s): I16.0 - Hypertensive urgency Status: Acute - Plan 1) NSTEMI s/p CABGx3 POD #0 ALBRIGHT to LAD SVG to OM SVG to PDA 2) EF 55-60% 3) DM 4) HTN urgency on arrival 5) Supportive care
[2018-10-16] MEDS: fentaNYL Citrate Inj 100 MCG/2 ML Ampul IV.PUSH PRN ×2 (00:28→02:12)
[2018-10-16] MEDS: ceFAZolin 2 GM Premix Inj 2 GM/50 ML PIGGYBACK IV.SIG SCH ×3 (01:15→17:46)
[2018-10-16] MEDS: Insulin Regular (For Infusion) 100 UNIT in Sodium Chlor 0.9% Inj 99 ML IV.CONT PRN (02:15)
--- NOTE | 2018-10-16 05:09 | XR ---
EXAM DATE: 10/16/2018 4:59 AM EST AGE/SEX: 68 years / Male INDICATIONS: Short of breath. CLINICAL DATA: This is the patient's subsequent encounter. Patient reports that signs and symptoms h ave been present for 2 days and indicates a pain score of 0/10. MEDICAL/SURGICAL HISTORY: Cardiovascular disease. CABG. COMPARISON: C, CHEST 1V SINGLE AP, 10/15/2018. . FINDINGS: Left thoracostomy tube and right neck central line remain in place. There is persistent slight basila r parenchymal opacity bilaterally. Cardiac contours are unchanged CONCLUSION: No significant change Electronically signed by: Jeffrey Guzman MD Board Certified Radiologist 10/16/2018 5:08 AM EST
[2018-10-16] MEDS: Amiodarone 200 MG Tablet PO SCH ×3 (05:30→21:04)
[2018-10-16 05:50] LABS: Hematocrit 40.4 % (39.0-51.0); Mean Corpuscular HGB Conc 34.6 % (32.0-36.0); Mean Corpuscular Hemoglobin 31.6 pg (27.0-34.0); Mean Corpuscular Volume 91.3 fL (80.0-100.0); Platelet Count 145 th/mm3 (150-450); Red Blood Count 4.43 mil/mm3 (4.50-5.90); White Blood Count 14.4 th/mm3 (4.0-11.0)
[2018-10-16 06:19] LABS: Carbon Dioxide 24.8 meq/L (21.0-32.0); Magnesium 2.4 mg/dL (1.5-2.5); Potassium 4.1 meq/L (3.5-5.1)
[2018-10-16] MEDS ORDERED: Dextrose 50% in Water 50 ML Vial IV.PUSH PRN (09:02)
[2018-10-16] MEDS ORDERED: Sod Phosphate/Sod Biphosphate (Adult) Enema 133 ML Bottle RECTAL PRN (09:02)
[2018-10-16] MEDS ORDERED: Bisacodyl 10 MG Supp RECTAL PRN (09:02)
--- NOTE | 2018-10-16 09:19 | P.PNCV ---
- Note Subjective/Hospital Course: This is a 68-year-old male; patient of Dr. Gordon Nazario and also Dr. Berry, who presented to the emergency department with some upper back pain, which was between his shoulder blades. He started working out at the gym a couple of times and thought that the pain was due to his exercise, but he woke up at 3 a.m. with this pain in his back and also took his blood pressure, which was over 200. He tried to go back to bed, woke his up and presented to the emergency department. The patient's blood pressure on arrival was 201/98. He had other workup to include a thoracic aorta CT, which was negative for dissection; relatively negative study. His lab work did come back ruling him in for a non-STEMI with a troponin of 1.83. The patient underwent further evaluation to include a 2-D echo, which showed an ejection fraction of 55%-60%, some trace aortic insufficiency, otherwise unremarkable. Cardiac catheterization revealed proximal LAD 80%, the diagonal was 80%, the OM was 90% , the RCA 100%. We were consulted to evaluate for coronary artery bypass grafting. PAST MEDICAL HISTORY: Includes morbid obesity, chronic bilateral knee pain, hypertension, recently diagnosed diabetes mellitus. Date of procedure: 10/15/18 Preoperative Diagnosis (1) CAD (coronary artery disease (2) NSTEMI (non-ST elevated myocardial infarction same Procedure: CABG x 3 ALBRIGHT to LAD - fair SVG to OM - good SVG to PDA - good L EVH extubated after surgery crystalloid 2800cc, 750cc cell saver, 200cc EBL 10/16 pt up in chair, pulm toileting encouraged gentle diuresis start BB, on amio, statin , ASA Normal EF transfer to stepdown Objective: Vital Signs - 24 hr 10/15/18 12:05 10/15/18 12:33 10/15/18 12:53 Temperature 97.4 F L Pulse Rate 72 71 Respiratory Rate 13 15 Blood Pressure 118/97 H Pulse Oximetry 98 98 10/15/18 13:00 10/15/18 14:38 10/15/18 15:00 Temperature 98.0 F 98.0 F Pulse Rate 63 67 Respiratory Rate 12 19 18 Blood Pressure 100/59 L Pulse Oximetry 99 92 L 94 L 10/15/18 15:20 10/15/18 15:30 10/15/18 15:56 Temperature Pulse Rate 73 Respiratory Rate 25 H 20 Blood Pressure Pulse Oximetry 95 92 L 10/15/18 18:00 10/15/18 18:59 10/15/18 19:00 Temperature 97.8 F Pulse Rate 83 Respiratory Rate 18 18 Blood Pressure 112/73 Pulse Oximetry 94 L 94 L 10/15/18 20:53 10/15/18 21:16 10/15/18 23:00 Temperature 98.8 F Pulse Rate 90 83 Respiratory Rate 20 18 Blood Pressure 125/86 Pulse Oximetry 95 94 L 10/16/18 00:00 10/16/18 00:50 10/16/18 03:00 Temperature 99.4 F Pulse Rate 103 H Respiratory Rate 18 18 18 Blood Pressure 113/74 Pulse Oximetry 92 L 10/16/18 04:00 10/16/18 04:12 10/16/18 06:00 Temperature Pulse Rate 102 H Respiratory Rate 18 20 Blood Pressure Pulse Oximetry 92 L GENERAL: A&O x 3 prevena dressing to chest SKIN: Warm and dry. MICHEL wrap to left leg HEAD: Normocephalic. EYES: No scleral icterus. No injection or drainage. NECK: Supple, trachea midline. No JVD or lymphadenopathy. CARDIOVASCULAR: Regular rate and rhythm without murmurs, gallops, or rubs. RESPIRATORY: Breath sounds equal bilaterally. No accessory muscle use. diminished in basses, few crackles, chest tube to wall suction , no air leak GASTROINTESTINAL: Abdomen soft, non-tender, nondistended. MUSCULOSKELETAL: No cyanosis, or edema. BACK: Nontender without obvious deformity. No CVA tenderness. Labs: Laboratory Results - last 12 hr 10/15/18 10/16/18 10/16/18 21:48 00:23 02:22 WBC RBC Hgb Hct MCV MCH MCHC RDW Plt Count MPV Sodium Potassium Chloride Carbon Dioxide Anion Gap BUN Creatinine Estimated GFR POC Glucose 108 148 H 158 H Random Glucose Calcium Magnesium 10/16/18 10/16/18 10/16/18 04:13 05:25 05:25 WBC 14.4 H RBC 4.43 L Hgb 14.0 Hct 40.4 MCV 91.3 MCH 31.6 MCHC 34.6 RDW 14.0 Plt Count 145 L MPV 8.0 Sodium 145 Potassium 4.1 Chloride 112 H Carbon Dioxide 24.8 Anion Gap 8 BUN 14 Creatinine 0.95 Estimated GFR 79 L POC Glucose 130 H Random Glucose 123 H Calcium 8.0 L Magnesium 2.4 10/16/18 10/16/18 10/16/18 05:27 07:48 08:46 WBC RBC Hgb Hct MCV MCH MCHC RDW Plt Count MPV Sodium Potassium Chloride Carbon Dioxide Anion Gap BUN Creatinine Estimated GFR POC Glucose 120 H 100 180 H Random Glucose Calcium Magnesium Result Diagrams: 10/16/18 05:25 10/16/18 05:25 Telemetry: NSR>ST with RBBB unchanged - Plan (1) S/P CABG x 3 Plan: Neuro: stable CV: on ASA, statin, BB hold Norvasc, gentle diuresis Resp: pulm toileting nebs ezpap GI: on PPI GI motility meds Endo: insulin sliding scale start metformin OOB/ PT transfer to stepdown (2) Diabetes mellitus (2) Diabetes mellitus Qualifiers: Diabetes mellitus type: type 2
[2018-10-16] MEDS ORDERED: Insulin Detemir Inj 1,000 UNIT/10 ML Vial SQ ONE (10:00)
[2018-10-16] MEDS: Metoprolol Tartrate 25 MG Tablet PO SCH ×2 (10:22→21:02)
--- NOTE | 2018-10-16 10:46 | P.DCO ---
- Diagnosis (1) NSTEMI (non-ST elevated myocardial infarction) Status: Acute (2) Hypertensive urgency Status: Acute (3) CAD (coronary artery disease) Status: Acute (4) S/P CABG x 3 Status: Acute (5) Diabetes mellitus Status: Chronic - Home Health Nursing Order: Medical education, Signs/symptoms of disease process, Diabetic education , Wound care and dressing changes, Nursing assessment with vital signs Instructions: PREVENA Single Use Negative Wound Therapy System Caregiver Instruction Sheet 1. A Prevena dressing system was applied to the chest incision during surgery , to promote wound healing. It works via a suction device (negative pressure wound therapy) to remove low to moderate levels of exudate (drainage) and infectious materials. We recommend that the device stay in place for up to seven days, from day of surgery. 2. Day of Surgery___2/ Day of Removal ____2/ 3. The dressing should only be removed by a health health care consultant. Please arrange removal of device to coincide with Home Health visit and or with Nursing staff at Rehab 4. If skin reddening or irritation of skin occurs, or excessive drainage, please notify the Cardiovascular Surgeons office at [phone]. 5. Light showering is permissible; however the pump should be disconnected and placed in safe location, where it will not get wet. The dressing should not be exposed to direct spray or submerged in water. No bath tub / shower only. Ensure the end of the tubing attached to the dressing is facing down so that water does not enter the top of the tube. 6. To remove Prevena dressing: press purple button to turn off device / remove the suction. Then disconnect the tubing from the pump. The fixation strips should be stretched away from the skin and the dressing lifted at one corner and peeled back until it has been fully removed. 7. After removal, it is ok to shower daily using liquid dial soap and clean wash cloth, rinse and pat dry, and leave incision open to air dry. For any concerns regarding Prevena dressing, and or wounds, please contact Katelyn Sandhu, patient navigator at [phone] or notify the Cardiovascular Surgeons office at [phone]. Incentive spirometry Q1 hr x 10, while awake, also use acapella device hourly whole awake Sternal Breast Bone Precautions: NO pushing or pulling, ( pt must use sternal pillow to support chest with all activities and with coughing ( takes up to 3 months breast bone to heal ) Daily incision care: ok to shower daily, no tub bath. Wash all incisions with liquid dial soap, clean wash cloth to each site, rinse and pat dry. Observe for any signs of infection, such as drainage which is dark yellow, glover, green or foul smelling. Immediately report to the surgeon any drainage from the chest incision, or legs, and for any abnormal drainage from the chest tube sites. Notify surgeon if any temp >101.5 degrees F. When specialty dressing removed/ or if you do not have one, continue to shower daily as above, then rinse and pat incision dry and paint with betadine daily x 5 days. Allow steri strips to fall off if you have any. Avoid lotions, creams, salves, oils, etc. for the first month Please see attached forms for additional instructions regarding post Open Heart specialty wound vacuum dressings. FRIDA or Prevena , Dressing to be removed by Nursing staff on __10/22/[address] Leal patients , please obtain CBC, BMP, PA & Lat CXR in 2 weeks, results to Dr. Leal ( prescription will be given) ( ) (Tele: [phone]) F/U appointment: as per DC instructions: PCP in 2 weeks, CV surgeon 2 weeks, Multimedia Developer 3-4 weeks For any questions regarding incisions/ dressing / meds / post op care or above Symptoms, Saturday 8am-5pm Heart & Vascular Surgery Office ( Dr. Wilkes & Dr. Leal), After Hours / Nights (5pm -8am) Weekends and Holidays Please call [facility] Card[facility] ([facility]) Charge Nurse Heart and Vascular Surgery patients *Special attention to sternal dressing Mandatory frequency Assess and evaluation, 4 days in a row The next week 3X week 2 times a week for 4 weeks 1 time a week for 5 weeks Schedule Heart and Vascular patients for full 60 day certification period Initial visit Review Open Heart Surgery Discharge Instructions (Sternal precautions, Activity, Elastic hose, Incision care, Driving, Incentive spirometry, Smoking, [place], Work and other) Need Betadine to paint incision Medication reconciliation Importance of follow up care/ check on appointments Make calendar record temperature daily When to call [facility] at Home nurse, review instructions, phone list Incentive Spirometry, demonstration Visit 1- Begin discharge instruction for patient family and/ or caregiver using teach back method- Signs and symptoms of infection Disease characteristics Medicines and side effects Foods and nutrition/ appetite Infection control/ hand washing/ hygiene Visit 2- Continue teaching Discharge instructions- include additional information on smoking cessation , sternal dressing (sternal vac) Visit 3- Continue teaching- Cough and deep breathing, incision monitoring. Choose my plate Visit 4- Continue teaching- Discuss limitations Discuss how they are feeling Discuss progress toward goals Remaining visits- continue teaching and monitoring For any questions please call : Saturday 8am-5pm Heart & Vascular Surgery Office ( Dr. Wilkes & Dr. Leal), After Hours / Nights (5pm -8am) Weekends and Holidays Please call [facility] Cardiac Inter[facility] Care Unit (CIC) Charge Nurse - Case Management Consult Case Management Consult-Home Health: Yes - Certification I have seen patient Chaparro Buck on 10/16/18. My clinical findings support the need for the requested home health care services because: Deconditioned with increased weakness I certify that my clinical findings support that this patient is homebound because: Post-op weakness (5) Diabetes mellitus Qualifiers: Diabetes mellitus type: type 2
[2018-10-16] MEDS: Insulin NovoLOG Aspart Correctional Sugar Inj SQ SCH ×4 (13:09→23:23)
[2018-10-16 17:34] LABS: Bilirubin,Urine Negative (Negative); Clarity,Urine Hazy (Clear); Color,Urine Yellow (Yellw/Straw); Glucose,Urine (UA) 150 mg/dL (Negative); Hyaline Casts,Urine 1 /lpf (0-3); Leukocyte Esterase,Urine Trace (Negative); Mucus,Urine Few /lpf (Occasional); Nitrite,Urine Negative (Negative); Specific Gravity,Urine 1.019 (1.002-1.035); Squamous Epithelial Cell,Urine <1 /hpf (0-5)
[2018-10-16] MEDS: Docusate Sodium 100 MG Capsule PO SCH (21:03)
--- NOTE | 2018-10-17 02:12 | P.PNCA ---
Subjective Interval history: No events overnight Doing well Medications and Allergies Active Medications: Active Medications Al Hydroxide/Mg Hydroxide (Milk Of Naomi Jeffersonq) 30 ml PO DAILY [facility] Albuterol (Duoneb Neb (Prn)) 1 ampul NEB Q2HR NEB PRN PRN Reason: WHEEZING Albuterol (Duoneb Neb (Nieves)) 1 ampul NEB Q6HR WHILE AWAKE NEB [facility] Stop: 10/18/18 13:59 Last Admin: 10/16/18 20:39 Dose: 1 ampul Amiodarone HCl (Cordarone) 400 mg PO Q8HR [facility] Last Admin: 10/16/18 21:04 Dose: 400 mg Amlodipine Besylate (Norvasc) 5 mg PO DAILY [facility] Last Admin: 10/15/18 13:43 Dose: Not Given Aspirin (Aspirin Chew) 81 mg PO DAILY [facility] Last Admin: 10/16/18 09:06 Dose: 81 mg Atorvastatin Calcium (Lipitor) 40 mg PO HS [facility] Last Admin: 10/16/18 21:03 Dose: 40 mg Bisacodyl (Dulcolax Supp) 10 mg RECTAL PRN PRN PRN Reason: SEE LABEL COMMENTS Chlorhexidine Gluconate (Hibiclens 4% Topical) 1 applicatio TOPICAL SUPPLY AIDE [facility] Stop: 10/19/18 11:30 Sodium Chloride 77.5 ml/Papaverine HCl 60 mg/Nitroglycerin 100 mcg/Diltiazem HCl 100 mg 0 ml IRRIGATION SUPPLY AIDE [facility] Stop: 10/19/18 11:30 Last Admin: 10/15/18 09:15 Dose: 1 bag Sodium Chloride 500 ml/ (Cefazolin Sodium 500 mg) 0 ml IRRIGATION SUPPLY AIDE [facility] Stop: 10/19/18 11:31 Last Admin: 10/15/18 09:15 Dose: 1 bag Dextrose (D50w Vial) 50 ml IV.PUSH UNSCH PRN PRN Reason: PER HYPOGLYCEMIA PROTOCOL Docusate Sodium (Colace) 100 mg PO BID [facility] Last Admin: 10/16/18 21:03 Dose: 100 mg Glucagon (Glucagon Inj) 1 mg OTHER PRN PRN PRN Reason: For hypoglycemia Cefazolin Sodium/Dextrose (Ancef 2 Gm Premix Inj) 2 gm in 50 mls @ 100 mls/hr IV.SIG SUPPLY AIDE [facility] Last Admin: 10/15/18 08:01 Dose: 100 mls/hr Cefazolin Sodium/Dextrose (Ancef 2 Gm Premix Inj) 2 gm in 50 mls @ 200 mls/hr IV.SIG Q8H [facility] Stop: 10/17/18 02:14 Last Admin: 10/16/18 17:46 Dose: 200 mls/hr Sodium Chloride (Ns Inj) 1,000 mls @ 100 mls/hr IV.CONT .Q10H [facility] Last Admin: 10/14/18 13:18 Dose: 100 mls/hr Insulin Aspart (Novolog Insulin Correctional Sugar Inj) 0 unit SQ 02,06,10,14, 18,22 [facility]; Protocol Stop: 10/17/18 09:59 Last Admin: 10/16/18 23:23 Dose: 9 unit Insulin Aspart (Novolog Insulin Correctional Sugar Inj) 0 unit SQ ACHS [facility]; Protocol Last Admin: 10/16/18 13:09 Dose: 9 unit Metformin [facility] ([facility]uc[facility]) [facility] Last Admin: 10/16/18 17:49 Dose: 500 mg Metoprolol Tartrate (Lopressor) 12.5 mg PO SUPPLY AIDE [facility] Stop: 10/19/18 11:31 Last Admin: 10/15/18 05:49 Dose: 12.5 mg Metoprolol Tartrate (Lopressor) 25 mg PO BID [facility] Last Admin: 10/16/18 21:02 Dose: 25 mg Multivitamins/Minerals (Theragran-M) 1 tab PO DAILY [facility] Ondansetron HCl (Zofran Inj) 4 mg IV.PUSH Q6H PRN PRN Reason: NAUSEA OR VOMITING Oxycodone/Acetaminophen (Percocet 5/325 Mg) 1 tab PO Q3H PRN PRN Reason: PAIN SCALE 1 TO 5 Last Admin: 10/16/18 23:12 Dose: 1 tab Pantoprazole Sodium (Protonix) 40 mg PO DAILY@06 [facility] Last Admin: 10/16/18 05:30 Dose: 40 mg Polyethylene Glycol (Miralax) 17 gm PO DAILY [facility] Sennosides (Senokot) 8.6 mg PO HS [facility] Last Admin: 10/16/18 21:02 Dose: 8.6 mg Sodium Biphosphate/Sodium Phosphate (Fleets Enema (Adult)) 118 ml RECTAL UNSCH PRN PRN Reason: SEE LABEL COMMENTS Sodium Chloride (Ns Flush) 2 ml IV.FLUSH PRN PRN PRN Reason: FLUSH AFTER USING IV ACCESS Sodium Chloride (Ns Flush) 2 ml IV.FLUSH BID [facility] Last Admin: 10/15/18 21:36 Dose: Not Given Allergies Allergy/AdvReac Type Severity Reaction Status Date / Time No Known Allergies Allergy Verified 10/10/18 13:20 Home Medications Medication Instructions Recorded Confirmed Type amlodipine 5 mg PO HS 10/10/18 10/10/18 History pravastatin 40 mg PO HS 10/10/18 10/10/18 History Physical Exam Vital signs: Vital Signs 10/16/18 03:00 10/16/18 04:00 10/16/18 04:12 Temperature 99.4 F Pulse Rate 103 H 102 H Respiratory Rate 18 18 20 Blood Pressure 113/74 Pulse Oximetry 92 L 10/16/18 06:00 10/16/18 07:00 10/16/18 09:40 Temperature 98.7 F Pulse Rate 99 H Respiratory Rate 18 Blood Pressure 136/81 Pulse Oximetry 92 L 93 L 92 L 10/16/18 11:00 10/16/18 12:00 10/16/18 13:01 Temperature 98.7 F 99.6 F Pulse Rate 99 H 94 H 89 Respiratory Rate 18 16 18 Blood Pressure 136/81 109/68 Pulse Oximetry 93 L 94 L 10/16/18 14:00 10/16/18 14:25 10/16/18 15:00 Temperature 98.9 F Pulse Rate 108 H 97 H Respiratory Rate 18 18 Blood Pressure 154/76 H Pulse Oximetry 94 L 10/16/18 16:00 10/16/18 17:00 10/16/18 18:00 Temperature Pulse Rate 94 H 92 H 90 Respiratory Rate Blood Pressure Pulse Oximetry 10/16/18 19:00 10/16/18 20:00 10/16/18 20:52 Temperature 98.6 F Pulse Rate 113 H 115 H 84 Respiratory Rate 20 18 Blood Pressure 132/76 Pulse Oximetry 94 L 93 L 10/16/18 21:00 10/16/18 22:00 10/16/18 23:00 Temperature 98.6 F Pulse Rate 91 H 86 91 H Respiratory Rate 22 Blood Pressure 128/72 Pulse Oximetry 97 10/17/18 00:00 10/17/18 01:00 Temperature Pulse Rate 91 H 81 Respiratory Rate 22 Blood Pressure Pulse Oximetry Intake & Output 10/16/18 10/16/18 10/17/18 06:59 18:59 06:59 Intake Total 980 / 980 750 / 750 Output Total 890 / 890 1250 / 1250 Balance 90 / 90 -500 / -500 Weight 128.5 kg Intake: IV 350 / 350 50 / 50 NovoLIN R (IV Infusion) 100 100 / 100 UNIT In NS Inj 99 ML @ 3 UNITS/ HR 3 mls/hr IV.CONT TITRATE PRN Rx#:[id number] Ofirmev Inj 1,000 mg In 100 ml 200 / 200 @ 400 mls/hr IV.SIG Q6H [facility] Rx# :[id number] Ancef 2 GM Premix Inj 2 gm In 50 / 50 50 / 50 50 ml @ 200 mls/hr IV.SIG Q8H NIEVES Rx#:[id number] Oral 480 / 480 700 / 700 Other 150 / 150 Output: Urine Amount (Catheter) 720 / 720 1200 / 1200 Indwelling Temp Sensing 720 / 720 1200 / 1200 Catheter Chest Tube Drainage 170 / 170 50 / 50 #2 Pleural/Mediastinal Y 170 / 170 50 / 50 Connected Other: Date of Last Bowel Movement 10/14/18 # Bowel Movements 0 0 Narrative: GENERAL: NAD, AAOx3 on bipap SKIN: Warm and dry. HEAD: Atraumatic. Normocephalic. EYES: Pupils equal and round. No scleral icterus. No injection or drainage. ENT: No nasal bleeding or discharge. Mucous membranes pink and moist. NECK: Trachea midline. No JVD. CARDIOVASCULAR: Regular rate and rhythm. Sternotomy with covering RESPIRATORY: No accessory muscle use. Clear to auscultation. Breath sounds equal bilaterally. GASTROINTESTINAL: Abdomen soft, non-tender, nondistended. Hepatic and splenic margins not palpable. MUSCULOSKELETAL: Extremities without clubbing, cyanosis, or edema. No obvious deformities. NEUROLOGICAL: Awake and alert. No obvious cranial nerve deficits. Motor grossly within normal limits. Five out of 5 muscle strength in the arms and legs. Normal speech. PSYCHIATRIC: Appropriate mood and affect; insight and judgment normal. - Urinary Catheter Management Indwelling Temp Sensing Catheter Cath placed during this visit: yes, but has since been removed by the nurse Reason for continuing: Acute urinary retention Insertion date: 10/16/18 Insertion time: 16:00 Removal date: 10/16/18 Removal time: 05:20 Results 10/16/18 05:25 10/16/18 05:25 Coagulation 10/15/18 Range/Units 06:28 APTT 34.3 H D (23.4-31.7) sec CBC 10/16/18 Range/Units 05:25 WBC 14.4 H (4.0-11.0) th/mm3 RBC 4.43 L (4.50-5.90) mil/mm3 Hgb 14.0 (13.0-17.0) gm/dL Hct 40.4 (39.0-51.0) % Plt Count 145 L (150-450) th/mm3 Comprehensive Metabolic Panel 10/16/18 Range/Units 05:25 Sodium 145 (136-145) meq/L Potassium 4.1 (3.5-5.1) meq/L Chloride 112 H (98-107) meq/L Carbon Dioxide 24.8 (21.0-32.0) meq/L BUN 14 (7-18) mg/dL Creatinine 0.95 (0.60-1.30) mg/dL Calcium 8.0 L (8.5-10.1) mg/dL Intake and Output 10/16/18 10/16/18 10/17/18 14:59 22:59 06:59 Intake Total 50 / 50 700 / 700 Output Total 1250 / 1250 Balance 50 / 50 -550 / -550 Intake: IV 50 / 50 Ancef 2 GM Premix Inj 2 gm In 50 / 50 50 ml @ 200 mls/hr IV.SIG Q8H NIEVES Rx#:[id number] Oral 700 / 700 Output: Urine Amount (Catheter) 1200 / 1200 Indwelling Temp Sensing 1200 / 1200 Catheter Chest Tube Drainage 50 / 50 #2 Pleural/Mediastinal Y 50 / 50 Connected Other: Date of Last Bowel Movement 10/14/18 10/14/18 # Bowel Movements 0 - Imaging and Cardiology Imaging: Impressions Chest X-Ray 10/15/18 12:04 CONCLUSION: Support apparatus in good position Under aerated otherwise negative Chest X-Ray 10/16/18 05:00 CONCLUSION: No significant change Assessment and Plan - Assessment (1) NSTEMI (non-ST elevated myocardial infarction) Code(s): I21.4 - Non-ST elevation (NSTEMI) myocardial infarction Status: Acute (2) Hypertensive urgency Code(s): I16.0 - Hypertensive urgency Status: Acute (3) CAD (coronary artery disease) Code(s): I25.10 - Atherosclerotic heart disease of [place] coronary artery without angina pectoris Status: Acute (4) S/P CABG x 3 Code(s): Z95.1 - Presence of aortocoronary bypass graft Status: Acute - Plan 1) NSTEMI s/p CABGx3 POD #1 ALBRIGHT to LAD SVG to OM SVG to PDA 2) EF 55-60% 3) DM 4) HTN urgency on arrival 5) Supportive care 6) ASA/BB/Statin/Amiodarone
[2018-10-17] MEDS: ceFAZolin 2 GM Premix Inj 2 GM/50 ML PIGGYBACK IV.SIG SCH (02:56)
[2018-10-17] MEDS: Insulin NovoLOG Aspart Correctional Sugar Inj SQ SCH ×6 (03:11→23:47)
[2018-10-17 04:38] LABS: Baso % (Auto) 0.3 % (0.0-2.0); Eos % (Auto) 0.2 % (0.0-4.0); Hematocrit 36.3 % (39.0-51.0); Hemoglobin 12.3 gm/dL (13.0-17.0); Lymph # (Auto) 1.1 th/mm3 (1.0-4.8); Mean Corpuscular HGB Conc 33.8 % (32.0-36.0); Mean Corpuscular Hemoglobin 30.5 pg (27.0-34.0); Mean Corpuscular Volume 90.2 fL (80.0-100.0); Mean Platelet Volume 8.1 fL (7.0-11.0); Mono # (Auto) 1.3 th/mm3 (0.0-0.9); Mono % (Auto) 10.1 % (0.0-8.0); Neut # (Auto) 10.9 th/mm3 (1.8-7.7); Neut % (Auto) 81.4 % (16.0-70.0); Platelet Count 140 th/mm3 (150-450); Red Blood Count 4.02 mil/mm3 (4.50-5.90); Red Cell Distribution Width 14.1 % (11.6-17.2); White Blood Count 13.3 th/mm3 (4.0-11.0)
[2018-10-17 05:04] LABS: Calcium 8.2 mg/dL (8.5-10.1); Carbon Dioxide 26.7 meq/L (21.0-32.0); Magnesium 2.3 mg/dL (1.5-2.5); Potassium 4.2 meq/L (3.5-5.1)
[2018-10-17] MEDS: Amiodarone 200 MG Tablet PO SCH ×3 (06:21→21:06)
[2018-10-17] MEDS: Docusate Sodium 100 MG Capsule PO SCH ×2 (09:07→21:06)
[2018-10-17] MEDS: Polyethylene Glycol 3350 17 GM Packet PO SCH (09:07)
[2018-10-17] MEDS: Multivitamin/Minerals Therapeutic Tablet PO SCH (09:07)
[2018-10-17] MEDS: Metoprolol Tartrate 25 MG Tablet PO SCH ×2 (09:07→21:06)
--- NOTE | 2018-10-17 11:43 | P.PNCV ---
- Note CVT: Post Op Day #: 2 Subjective/Hospital Course: This is a 68-year-old male; patient of Dr. Gordon Nazario and also Dr. Berry, who presented to the emergency department with some upper back pain, which was between his shoulder blades. He started working out at the gym a couple of times and thought that the pain was due to his exercise, but he woke up at 3 a.m. with this pain in his back and also took his blood pressure, which was over 200. He tried to go back to bed, woke his up and presented to the emergency department. The patient's blood pressure on arrival was 201/98. He had other workup to include a thoracic aorta CT, which was negative for dissection; relatively negative study. His lab work did come back ruling him in for a non-STEMI with a troponin of 1.83. The patient underwent further evaluation to include a 2-D echo, which showed an ejection fraction of 55%-60%, some trace aortic insufficiency, otherwise unremarkable. Cardiac catheterization revealed proximal LAD 80%, the diagonal was 80%, the OM was 90% , the RCA 100%. We were consulted to evaluate for coronary artery bypass grafting. PAST MEDICAL HISTORY: Includes morbid obesity, chronic bilateral knee pain, hypertension, recently diagnosed diabetes mellitus. Date of procedure: 10/15/18 Preoperative Diagnosis (1) CAD (coronary artery disease (2) NSTEMI (non-ST elevated myocardial infarction same Procedure: CABG x 3 ALBRIGHT to LAD - fair SVG to OM - good SVG to PDA - good L EVH extubated after surgery crystalloid 2800cc, 750cc cell saver, 200cc EBL 10/16 pt up in chair, pulm toileting encouraged gentle diuresis start BB, on amio, statin , ASA Normal EF transfer to stepdown 10/17/18 doing well. English replaced for urinary retention Objective: Vital Signs - 24 hr 10/16/18 12:00 10/16/18 13:01 10/16/18 14:00 Temperature 99.6 F Pulse Rate 94 H 89 108 H Respiratory Rate 16 18 Blood Pressure 109/68 Pulse Oximetry 94 L 10/16/18 14:25 10/16/18 15:00 10/16/18 16:00 Temperature 98.9 F Pulse Rate 97 H 94 H Respiratory Rate 18 18 Blood Pressure 154/76 H Pulse Oximetry 94 L 10/16/18 17:00 10/16/18 18:00 10/16/18 19:00 Temperature 98.6 F Pulse Rate 92 H 90 113 H Respiratory Rate 20 Blood Pressure 132/76 Pulse Oximetry 94 L 10/16/18 20:00 10/16/18 20:52 10/16/18 21:00 Temperature Pulse Rate 115 H 84 91 H Respiratory Rate 18 Blood Pressure Pulse Oximetry 93 L 10/16/18 22:00 10/16/18 23:00 10/17/18 00:00 Temperature 98.6 F Pulse Rate 86 91 H 91 H Respiratory Rate 22 22 Blood Pressure 128/72 Pulse Oximetry 97 10/17/18 01:00 10/17/18 02:00 10/17/18 03:00 Temperature 98.3 F Pulse Rate 81 94 H 93 H Respiratory Rate 18 Blood Pressure 115/74 Pulse Oximetry 94 L 10/17/18 04:00 10/17/18 05:00 10/17/18 05:59 Temperature Pulse Rate 92 H 92 H 91 H Respiratory Rate 20 Blood Pressure Pulse Oximetry 10/17/18 07:00 10/17/18 08:00 10/17/18 08:21 Temperature 98.2 F Pulse Rate 93 H 104 H 101 H Respiratory Rate 18 18 Blood Pressure 122/59 L Pulse Oximetry 94 L 10/17/18 08:22 10/17/18 09:00 10/17/18 10:00 Temperature Pulse Rate 108 H 98 H Respiratory Rate Blood Pressure Pulse Oximetry 92 L Labs: Laboratory Results - last 12 hr 10/14/18 10/17/18 10/17/18 02:33 03:02 04:20 WBC 13.3 H RBC 4.02 L Hgb 12.3 L Hct 36.3 L MCV 90.2 MCH 30.5 MCHC 33.8 RDW 14.1 Plt Count 140 L MPV 8.1 Neut % (Auto) 81.4 H Lymph % (Auto) 8.0 L [place] % (Auto) 10.1 H Eos % (Auto) 0.2 Baso % (Auto) 0.3 Neut # (Auto) 10.9 H Lymph # (Auto) 1.1 [place] # (Auto) 1.3 H Eos # (Auto) 0.0 Baso # (Auto) 0.0 WBC Differential . Differential Comment Auto diff final Sodium Potassium Chloride Carbon Dioxide Anion Gap BUN Creatinine Estimated GFR POC Glucose 173 H Random Glucose Calcium Magnesium MTS Gel Crossmatch See Detail 10/17/18 04:20 WBC RBC Hgb Hct MCV MCH MCHC RDW Plt Count MPV Neut % (Auto) Lymph % (Auto) [place] % (Auto) Eos % (Auto) Baso % (Auto) Neut # (Auto) Lymph # (Auto) [place] # (Auto) Eos # (Auto) Baso # (Auto) WBC Differential Differential Comment Sodium 141 Potassium 4.2 Chloride 108 H Carbon Dioxide 26.7 Anion Gap 6 BUN 23 H Creatinine 0.98 Estimated GFR 76 L POC Glucose Random Glucose 156 H Calcium 8.2 L Magnesium 2.3 MTS Gel Crossmatch Result Diagrams: 10/17/18 04:20 10/17/18 04:20 Imaging: Thoracic Aorta CT 10/10/18 13:20 CONCLUSION: Negative study Carotid Doppler Study 10/13/18 11:30 CONCLUSION: Negative examination for a hemodynamically significant carotid stenosis. Rigo Flowers MD FACR Lower Extremity Ultrasound 10/13/18 11:30 CONCLUSION: 1. Venous mapping study as described. Venous Doppler Study 10/13/18 11:30 CONCLUSION: 1. Negative for deep venous thrombosis Chest X-Ray 10/16/18 05:00 CONCLUSION: No significant change Cardiovascular: RRR Pulmonary: Decreased BS bilaterally GI/: NABS, NT Incision: dry and intact CT: minimal output over last shift - Plan (4) S/P CABG x 3 Plan: Neuro: stable CV: on ASA, statin, BB hold Norvasc, gentle diuresis Resp: pulm toileting nebs ezpap GI: on PPI GI motility meds Endo: insulin sliding scale start metformin OOB/ PT transfer to stepdown (5) Diabetes mellitus Remove chest tubes Encourage ambulation Stim BM Start flomax, continue english catheter DC planning (5) Diabetes mellitus Qualifiers: Diabetes mellitus type: type 2
[2018-10-17] MEDS: Sod Chloride 0.9% Inj 1,000 ML IV.CONT SCH ×3 (13:55→13:57)
--- NOTE | 2018-10-17 14:29 | ECG ---
Date Performed: 10/16/2018 Time Performed: 04:12:32 PTAGE: 68 years EKG: Sinus tachycardia Right bundle branch block Inferior ST-T changes are nonspecific Low QRS v oltages in precordial leads Abnormal ECG Since the PREVIOUS TRACING , no significant change noted PREVIOUS TRACING DOCTOR: Cammie Perez Interpretating Date/Time 10/17/2018 14:29:04
--- NOTE | 2018-10-17 18:23 | P.PNCA ---
Subjective Interval history: No events overnight Currently on CPAP Always uses for comfort per the patient Medications and Allergies Active Medications: Active Medications Al Hydroxide/Mg Hydroxide (Milk Of Magnbety Liq) 30 ml PO DAILY [facility] Last Admin: 10/17/18 09:07 Dose: 30 ml Albuterol (Duoneb Neb (Prn)) 1 ampul NEB Q2HR NEB PRN PRN Reason: WHEEZING Albuterol (Duoneb Neb (Chikis)) 1 ampul NEB Q6HR WHILE AWAKE NEB [facility] Stop: 10/18/18 13:59 Last Admin: 10/17/18 13:18 Dose: 1 ampul Amiodarone HCl (Cordarone) 400 mg PO Q8HR [facility] Last Admin: 10/17/18 14:56 Dose: 400 mg Amlodipine Besylate (Norvasc) 5 mg PO DAILY [facility] Last Admin: 10/15/18 13:43 Dose: Not Given Aspirin (Aspirin Chew) 81 mg PO DAILY [facility] Last Admin: 10/17/18 09:07 Dose: 81 mg Atorvastatin Calcium (Lipitor) 40 mg PO HS [facility] Last Admin: 10/16/18 21:03 Dose: 40 mg Bisacodyl (Dulcolax Supp) 10 mg RECTAL PRN PRN PRN Reason: SEE LABEL COMMENTS Chlorhexidine Gluconate (Hibiclens 4% Topical) 1 applicatio TOPICAL [employer] [facility] Stop: 10/19/18 11:30 Sodium Chloride 77.5 ml/Papaverine HCl 60 mg/Nitroglycerin 100 mcg/Diltiazem HCl 100 mg 0 ml IRRIGATION [employer] [facility] Stop: 10/19/18 11:30 Last Admin: 10/15/18 09:15 Dose: 1 bag Sodium Chloride 500 ml/ (Cefazolin Sodium 500 mg) 0 ml IRRIGATION [employer] [facility] Stop: 10/19/18 11:31 Last Admin: 10/15/18 09:15 Dose: 1 bag Dextrose (D50w Vial) 50 ml IV.PUSH UNSCH PRN PRN Reason: PER HYPOGLYCEMIA PROTOCOL Docusate Sodium (Colace) 100 mg PO BID [facility] Last Admin: 10/17/18 09:07 Dose: 100 mg Glucagon (Glucagon Inj) 1 mg OTHER PRN PRN PRN Reason: For hypoglycemia Cefazolin Sodium/Dextrose (Ancef 2 Gm Premix Inj) 2 gm in 50 mls @ 100 mls/hr IV.SIG [employer] [facility] Last Admin: 10/15/18 08:01 Dose: 100 mls/hr Sodium Chloride (Ns Inj) 1,000 mls @ 100 mls/hr IV.CONT .Q10H [facility] Last Admin: 10/17/18 13:57 Dose: Not Given Insulin Aspart (Novolog Insulin [place] Sugar Inj) 0 unit SQ ACHS [facility]; Protocol Last Admin: 10/17/18 12:17 Dose: 9 unit [facility] Last Admin: 10/17/18 09:07 Dose: 500 mg Metoprolol Tartrate (Lopressor) 12.5 mg PO [employer] [facility] Stop: 10/19/18 11:31 Last Admin: 10/15/18 05:49 Dose: 12.5 mg Metoprolol Tartrate (Lopressor) 25 mg PO BID [facility] Last Admin: 10/17/18 09:07 Dose: 25 mg Multivitamins/Minerals (Theragran-M) 1 tab PO DAILY [facility] Last Admin: 10/17/18 09:07 Dose: 1 tab Ondansetron HCl (Zofran Inj) 4 mg IV.PUSH Q6H PRN PRN Reason: NAUSEA OR VOMITING Oxycodone/Acetaminophen (Percocet 5/325 Mg) 1 tab PO Q3H PRN PRN Reason: PAIN SCALE 1 TO 5 Last Admin: 10/17/18 14:56 Dose: 1 tab Pantoprazole Sodium (Protonix) 40 mg PO DAILY@06 [facility] Last Admin: 10/17/18 06:21 Dose: 40 mg Polyethylene Glycol (Miralax) 17 gm PO DAILY [facility] Last Admin: 10/17/18 09:07 Dose: 17 gm Sennosides (Senokot) 8.6 mg PO HS [facility] Last Admin: 10/16/18 21:02 Dose: 8.6 mg Sodium Biphosphate/Sodium Phosphate (Fleets Enema (Adult)) 118 ml RECTAL UNSCH PRN PRN Reason: SEE LABEL COMMENTS Sodium Chloride (Ns Flush) 2 ml IV.FLUSH PRN PRN PRN Reason: FLUSH AFTER USING IV ACCESS Last Admin: 10/17/18 03:12 Dose: 2 ml Sodium Chloride (Ns Flush) 2 ml IV.FLUSH BID [facility] Last Admin: 10/17/18 09:09 Dose: 2 ml Tamsulosin HCl (Flomax) 0.4 mg PO DAILY [facility] Last Admin: 10/17/18 12:17 Dose: 0.4 mg Allergies Allergy/AdvReac Type Severity Reaction Status Date / Time No Known Allergies Allergy Verified 10/10/18 13:20 Home Medications Medication Instructions Recorded Confirmed Type amlodipine 5 mg PO HS 10/10/18 10/10/18 History pravastatin 40 mg PO HS 10/10/18 10/10/18 History Physical Exam Vital signs: Vital Signs 10/16/18 19:00 10/16/18 20:00 10/16/18 20:52 Temperature 98.6 F Pulse Rate 113 H 115 H 84 Respiratory Rate 20 18 Blood Pressure 132/76 Pulse Oximetry 94 L 93 L 10/16/18 21:00 10/16/18 22:00 10/16/18 23:00 Temperature 98.6 F Pulse Rate 91 H 86 91 H Respiratory Rate 22 Blood Pressure 128/72 Pulse Oximetry 97 10/17/18 00:00 10/17/18 01:00 10/17/18 02:00 Temperature Pulse Rate 91 H 81 94 H Respiratory Rate 22 Blood Pressure Pulse Oximetry 10/17/18 03:00 10/17/18 04:00 10/17/18 05:00 Temperature 98.3 F Pulse Rate 93 H 92 H 92 H Respiratory Rate 18 20 Blood Pressure 115/74 Pulse Oximetry 94 L 10/17/18 05:59 10/17/18 07:00 10/17/18 08:00 Temperature 98.2 F Pulse Rate 91 H 93 H 104 H Respiratory Rate 18 Blood Pressure 122/59 L Pulse Oximetry 94 L 10/17/18 08:21 10/17/18 08:22 10/17/18 09:00 Temperature Pulse Rate 101 H 108 H Respiratory Rate 18 Blood Pressure Pulse Oximetry 92 L 10/17/18 10:00 10/17/18 11:00 10/17/18 12:00 Temperature 98.6 F Pulse Rate 98 H 94 H 90 Respiratory Rate 17 Blood Pressure 120/68 Pulse Oximetry 93 L 10/17/18 13:00 10/17/18 13:19 10/17/18 14:00 Temperature Pulse Rate 88 91 H 88 Respiratory Rate 18 Blood Pressure Pulse Oximetry 10/17/18 15:00 10/17/18 15:05 10/17/18 16:00 Temperature 98.3 F Pulse Rate 101 H 95 H 96 H Respiratory Rate 17 Blood Pressure 113/59 L Pulse Oximetry 94 L 10/17/18 17:00 10/17/18 17:38 10/17/18 18:00 Temperature 99.8 F H Pulse Rate 98 H 98 H 100 H Respiratory Rate 17 Blood Pressure 127/66 Pulse Oximetry 94 L 10/17/18 18:13 Temperature 100.6 F H Pulse Rate Respiratory Rate Blood Pressure Pulse Oximetry Intake & Output 10/16/18 10/17/18 10/17/18 18:59 06:59 18:59 Intake Total 800 / 800 240 / 240 Output Total 1250 / 1250 510 / 510 Balance -450 / -450 -270 / -270 Weight 128.5 kg Intake: IV 100 / 100 Ancef 2 GM Premix Inj 2 gm In 100 / 100 50 ml @ 200 mls/hr IV.SIG Q8H [facility] Rx#:[id number] Oral 700 / 700 240 / 240 Output: Urine Amount (Catheter) 1200 / 1200 500 / 500 Indwelling Temp Sensing 1200 / 1200 500 / 500 Catheter Chest Tube Drainage 50 / 50 10 / 10 #2 Pleural/Mediastinal Y 50 / 50 10 / Connected Other: Date of Last Bowel Movement 10/14/18 10/14/18 # Bowel Movements 0 0 Narrative: GENERAL: NAD, AAOx3 on CPAP SKIN: Warm and dry. HEAD: Atraumatic. Normocephalic. EYES: Pupils equal and round. No scleral icterus. No injection or drainage. ENT: No nasal bleeding or discharge. Mucous membranes pink and moist. NECK: Trachea midline. No JVD. CARDIOVASCULAR: Regular rate and rhythm. Sternotomy with covering RESPIRATORY: No accessory muscle use. Clear to auscultation. Breath sounds equal bilaterally. GASTROINTESTINAL: Abdomen soft, non-tender, nondistended. Hepatic and splenic margins not palpable. MUSCULOSKELETAL: Extremities without clubbing, cyanosis, or edema. No obvious deformities. NEUROLOGICAL: Awake and alert. No obvious cranial nerve deficits. Motor grossly within normal limits. Five out of 5 muscle strength in the arms and legs. Normal speech. PSYCHIATRIC: Appropriate mood and affect; insight and judgment normal. - Urinary Catheter Management Indwelling Temp Sensing Catheter Cath placed during this visit: yes, but has since been removed by the nurse Reason for continuing: Acute urinary retention Insertion date: 10/16/18 Insertion time: 16:00 Removal date: 10/16/18 Removal time: 05:20 Results 10/17/18 04:20 10/17/18 04:20 CBC 10/16/18 10/17/18 Range/Units 05:25 04:20 WBC 14.4 H 13.3 H (4.0-11.0) th/mm3 RBC 4.43 L 4.02 L (4.50-5.90) mil/mm3 Hgb 14.0 12.3 L (13.0-17.0) gm/dL Hct 40.4 36.3 L (39.0-51.0) % Plt Count 145 L 140 L (150-450) th/mm3 Neut # (Auto) 10.9 H (1.8-7.7) th/mm3 Lymph # (Auto) 1.1 (1.0-4.8) th/mm3 [place] # (Auto) 1.3 H (0.0-0.9) th/mm3 Eos # (Auto) 0.0 (0.0-0.4) th/mm3 Baso # (Auto) 0.0 (0.0-0.2) th/mm3 Comprehensive Metabolic Panel 10/16/18 10/17/18 Range/Units 05:25 04:20 Sodium 145 141 (136-145) meq/L Potassium 4.1 4.2 (3.5-5.1) meq/L Chloride 112 H 108 H (98-107) meq/L Carbon Dioxide 24.8 26.7 (21.0-32.0) meq/L BUN 14 23 H (7-18) mg/dL Creatinine 0.95 0.98 (0.60-1.30) mg/dL Calcium 8.0 L 8.2 L (8.5-10.1) mg/dL Intake and Output 10/17/18 10/17/18 10/17/18 06:59 14:59 22:59 Intake Total 240 / 240 Output Total 510 / 510 Balance -270 / -270 Intake: Oral 240 / 240 Output: Urine Amount (Catheter) 500 / 500 Indwelling Temp Sensing 500 / 500 Catheter Chest Tube Drainage #2 Pleural/Mediastinal Y Connected Other: Date of Last Bowel Movement 10/14/18 10/14/18 # Bowel Movements 0 Weight 128.5 kg - Imaging and Cardiology Imaging: Impressions Chest X-Ray 10/16/18 05:00 CONCLUSION: No significant change Assessment and Plan - Assessment (1) NSTEMI (non-ST elevated myocardial infarction) Code(s): I21.4 - Non-ST elevation (NSTEMI) myocardial infarction Status: Acute (2) Hypertensive urgency Code(s): I16.0 - Hypertensive urgency Status: Acute (3) CAD (coronary artery disease) Code(s): I25.10 - Atherosclerotic heart disease of [place] coronary artery without angina pectoris Status: Acute (4) S/P CABG x 3 Code(s): Z95.1 - Presence of aortocoronary bypass graft Status: Acute - Plan 1) NSTEMI s/p CABGx3 POD #2 ALBRIGHT to LAD SVG to OM SVG to PDA 2) EF 55-60% 3) DM 4) HTN urgency on arrival 5) Supportive care 6) ASA/BB/Statin/Amiodarone 7) Discharge planning No further cardiovascular work up, will see PRN
[2018-10-17] MEDS ORDERED: Acetaminophen 325 MG Tablet PO PRN (18:37)
[2018-10-17 18:57] LABS: Bacteria,Urine Occasional /hpf; Bilirubin,Urine Negative (Negative); Clarity,Urine Hazy (Clear); Color,Urine Yellow (Yellw/Straw); Glucose,Urine (UA) 500 or Greater mg/dL (Negative); Hyaline Casts,Urine 1 /lpf (0-3); Leukocyte Esterase,Urine Trace (Negative); Mucus,Urine Few /lpf (Occasional); Nitrite,Urine Negative (Negative); Specific Gravity,Urine 1.026 (1.002-1.035)
[2018-10-18 05:27] LABS: Hematocrit 36.5 % (39.0-51.0); Hemoglobin 12.2 gm/dL (13.0-17.0); Mean Corpuscular HGB Conc 33.5 % (32.0-36.0); Mean Corpuscular Hemoglobin 29.9 pg (27.0-34.0); Mean Corpuscular Volume 89.3 fL (80.0-100.0); Mean Platelet Volume 7.8 fL (7.0-11.0); Platelet Count 159 th/mm3 (150-450); Red Blood Count 4.09 mil/mm3 (4.50-5.90); Red Cell Distribution Width 14.3 % (11.6-17.2); White Blood Count 12.5 th/mm3 (4.0-11.0)
[2018-10-18] MEDS: Amiodarone 200 MG Tablet PO SCH ×3 (05:30→22:43)
[2018-10-18 05:58] LABS: Calcium 8.1 mg/dL (8.5-10.1); Carbon Dioxide 28.5 meq/L (21.0-32.0)
[2018-10-18] MEDS: Docusate Sodium 100 MG Capsule PO SCH ×2 (08:11→20:45)
[2018-10-18] MEDS: Metoprolol Tartrate 25 MG Tablet PO SCH ×2 (08:11→20:46)
[2018-10-18] MEDS: Polyethylene Glycol 3350 17 GM Packet PO SCH (08:11)
[2018-10-18] MEDS: Insulin NovoLOG Aspart Correctional Sugar Inj SQ SCH ×4 (08:11→22:44)
[2018-10-18] MEDS: Multivitamin/Minerals Therapeutic Tablet PO SCH (08:11)
--- NOTE | 2018-10-18 12:47 | P.PNCV ---
- Note CVT: Post Op Day #: 3 Subjective/Hospital Course: This is a 68-year-old male; patient of Dr. Gordon Nazario and also Dr. Berry, who presented to the emergency department with some upper back pain, which was between his shoulder blades. He started working out at the gym a couple of times and thought that the pain was due to his exercise, but he woke up at 3 a.m. with this pain in his back and also took his blood pressure, which was over 200. He tried to go back to bed, woke his up and presented to the emergency department. The patient's blood pressure on arrival was 201/98. He had other workup to include a thoracic aorta CT, which was negative for dissection; relatively negative study. His lab work did come back ruling him in for a non-STEMI with a troponin of 1.83. The patient underwent further evaluation to include a 2-D echo, which showed an ejection fraction of 55%-60%, some trace aortic insufficiency, otherwise unremarkable. Cardiac catheterization revealed proximal LAD 80%, the diagonal was 80%, the OM was 90% , the RCA 100%. We were consulted to evaluate for coronary artery bypass grafting. PAST MEDICAL HISTORY: Includes morbid obesity, chronic bilateral knee pain, hypertension, recently diagnosed diabetes mellitus. Date of procedure: 10/15/18 Preoperative Diagnosis (1) CAD (coronary artery disease (2) NSTEMI (non-ST elevated myocardial infarction same Procedure: CABG x 3 ALBRIGHT to LAD - fair SVG to OM - good SVG to PDA - good L EVH extubated after surgery crystalloid 2800cc, 750cc cell saver, 200cc EBL 10/16 pt up in chair, pulm toileting encouraged gentle diuresis start BB, on amio, statin , ASA Normal EF transfer to stepdown 10/17/18 doing well. Frank replaced for urinary retention 10/18/18 Patient with low grade fever last night. No BM yet No ambulating well Objective: Vital Signs - 24 hr 10/17/18 13:00 10/17/18 13:19 10/17/18 14:00 Temperature Pulse Rate 88 91 H 88 Respiratory Rate 18 Blood Pressure Pulse Oximetry 10/17/18 15:00 10/17/18 15:05 10/17/18 16:00 Temperature 98.3 F Pulse Rate 101 H 95 H 96 H Respiratory Rate 17 Blood Pressure 113/59 L Pulse Oximetry 94 L 10/17/18 17:00 10/17/18 17:38 10/17/18 18:00 Temperature 99.8 F H Pulse Rate 98 H 98 H 100 H Respiratory Rate 17 Blood Pressure 127/66 Pulse Oximetry 94 L 10/17/18 18:13 10/17/18 19:00 10/17/18 20:00 Temperature 100.6 F H 98.5 F Pulse Rate 104 H 102 H Respiratory Rate 20 Blood Pressure 138/76 Pulse Oximetry 94 L 10/17/18 20:21 10/17/18 21:00 10/17/18 22:00 Temperature Pulse Rate 100 H 112 H 114 H Respiratory Rate 18 Blood Pressure Pulse Oximetry 93 L 10/17/18 23:00 10/17/18 23:48 10/18/18 00:00 Temperature 97.4 F L Pulse Rate 105 H 102 H Respiratory Rate 18 18 Blood Pressure 120/69 Pulse Oximetry 91 L 10/18/18 01:00 10/18/18 02:00 10/18/18 03:00 Temperature 97.9 F Pulse Rate 97 H 94 H 95 H Respiratory Rate 22 Blood Pressure 106/60 Pulse Oximetry 96 10/18/18 04:00 10/18/18 05:00 10/18/18 06:00 Temperature Pulse Rate 88 83 84 Respiratory Rate Blood Pressure Pulse Oximetry 10/18/18 07:00 10/18/18 08:00 10/18/18 08:21 Temperature 97.6 F Pulse Rate 86 84 89 Respiratory Rate 18 16 Blood Pressure 110/61 Pulse Oximetry 92 L 92 L 10/18/18 09:00 10/18/18 10:00 10/18/18 11:00 Temperature 98.0 F Pulse Rate 86 82 85 Respiratory Rate 18 Blood Pressure 110/64 Pulse Oximetry 90 L Labs: Laboratory Results - last 12 hr 10/18/18 10/18/18 10/18/18 04:50 04:50 08:07 WBC 12.5 H RBC 4.09 L Hgb 12.2 L Hct 36.5 L MCV 89.3 MCH 29.9 MCHC 33.5 RDW 14.3 Plt Count 159 MPV 7.8 Sodium 140 Potassium 4.0 Chloride 105 Carbon Dioxide 28.5 Anion Gap 7 BUN 25 H Creatinine 0.97 Estimated GFR 77 L POC Glucose 152 H Random Glucose 152 H Calcium 8.1 L 10/18/18 12:01 WBC RBC Hgb Hct MCV MCH MCHC RDW Plt Count MPV Sodium Potassium Chloride Carbon Dioxide Anion Gap BUN Creatinine Estimated GFR POC Glucose 162 H Random Glucose Calcium Result Diagrams: 10/18/18 04:50 10/18/18 04:50 Imaging: Thoracic Aorta CT 10/10/18 13:20 CONCLUSION: Negative study Carotid Doppler Study 10/13/18 11:30 CONCLUSION: Negative examination for a hemodynamically significant carotid stenosis. Rigo Flowers MD FACR Lower Extremity Ultrasound 10/13/18 11:30 CONCLUSION: 1. Venous mapping study as described. Venous Doppler Study 10/13/18 11:30 CONCLUSION: 1. Negative for deep venous thrombosis Chest X-Ray 10/16/18 05:00 CONCLUSION: No significant change Cardiovascular: RRR Pulmonary: Decreased BS bilat GI/: NABS, mild distention Incision: dry and intact - Plan (3) CAD (coronary artery disease) (4) S/P CABG x 3 Plan: Neuro: stable CV: on ASA, statin, BB hold Norvasc, gentle diuresis Resp: pulm toileting nebs ezpap GI: on PPI GI motility meds Endo: insulin sliding scale start metformin OOB/ PT transfer to stepdown (5) Diabetes mellitus Remove Frank Encourage ambulation Stim BM IS, pulmonary toilet Discharge planning (3) CAD (coronary artery disease) Qualifiers: Coronary Disease-Associated Artery/Lesion type: [place] artery [place] vs. transplanted heart: [place] heart (5) Diabetes mellitus Qualifiers: Diabetes mellitus type: type 2
[2018-10-19] MEDS: Amiodarone 200 MG Tablet PO SCH (05:34)
[2018-10-19] MEDS: Docusate Sodium 100 MG Capsule PO SCH ×2 (08:50→20:00)
[2018-10-19] MEDS: Multivitamin/Minerals Therapeutic Tablet PO SCH (08:50)
[2018-10-19] MEDS: Metoprolol Tartrate 25 MG Tablet PO SCH ×2 (08:50→20:00)
[2018-10-19] MEDS: Insulin NovoLOG Aspart Correctional Sugar Inj SQ SCH ×4 (08:51→21:35)
[2018-10-19] MEDS: Polyethylene Glycol 3350 17 GM Packet PO SCH (09:41)
--- NOTE | 2018-10-19 12:26 | P.PNCV ---
- Note CVT: Post Op Day #: 4 Subjective/Hospital Course: This is a 68-year-old male; patient of Dr. Gordon Nazario and also Dr. Berry, who presented to the emergency department with some upper back pain, which was between his shoulder blades. He started working out at the gym a couple of times and thought that the pain was due to his exercise, but he woke up at 3 a.m. with this pain in his back and also took his blood pressure, which was over 200. He tried to go back to bed, woke his up and presented to the emergency department. The patient's blood pressure on arrival was 201/98. He had other workup to include a thoracic aorta CT, which was negative for dissection; relatively negative study. His lab work did come back ruling him in for a non-STEMI with a troponin of 1.83. The patient underwent further evaluation to include a 2-D echo, which showed an ejection fraction of 55%-60%, some trace aortic insufficiency, otherwise unremarkable. Cardiac catheterization revealed proximal LAD 80%, the diagonal was 80%, the OM was 90% , the RCA 100%. We were consulted to evaluate for coronary artery bypass grafting. PAST MEDICAL HISTORY: Includes morbid obesity, chronic bilateral knee pain, hypertension, recently diagnosed diabetes mellitus. Date of procedure: 10/15/18 Preoperative Diagnosis (1) CAD (coronary artery disease (2) NSTEMI (non-ST elevated myocardial infarction same Procedure: CABG x 3 ALBRIGHT to LAD - fair SVG to OM - good SVG to PDA - good L EVH extubated after surgery crystalloid 2800cc, 750cc cell saver, 200cc EBL 10/16 pt up in chair, pulm toileting encouraged gentle diuresis start BB, on amio, statin , ASA Normal EF transfer to stepdown 10/17/18 doing well. Frank replaced for urinary retention 10/18/18 Patient with low grade fever last night. No BM yet No ambulating well 10/19/18 c/o nausea this morning and fatigue Objective: Vital Signs - 24 hr 10/18/18 13:00 10/18/18 14:00 10/18/18 15:00 Temperature 98.0 F Pulse Rate 84 88 101 H Respiratory Rate 18 Blood Pressure 123/63 Pulse Oximetry 90 L 10/18/18 16:00 10/18/18 17:00 10/18/18 18:00 Temperature Pulse Rate 88 92 H 94 H Respiratory Rate 18 Blood Pressure Pulse Oximetry 10/18/18 19:00 10/18/18 20:00 10/18/18 20:56 Temperature 98.2 F Pulse Rate 95 H 92 H Respiratory Rate 20 Blood Pressure 122/67 Pulse Oximetry 93 L 93 L 98 10/18/18 21:00 10/18/18 22:00 10/18/18 23:00 Temperature 99.3 F Pulse Rate 96 H 92 H 75 Respiratory Rate 20 Blood Pressure 94/58 L Pulse Oximetry 95 10/19/18 00:00 10/19/18 01:00 10/19/18 02:00 Temperature Pulse Rate 76 78 80 Respiratory Rate Blood Pressure Pulse Oximetry 10/19/18 03:00 10/19/18 04:00 10/19/18 05:00 Temperature 99.2 F Pulse Rate 78 77 83 Respiratory Rate 16 Blood Pressure 105/64 Pulse Oximetry 95 10/19/18 06:00 10/19/18 07:00 10/19/18 08:00 Temperature 98.6 F Pulse Rate 83 82 86 Respiratory Rate 18 Blood Pressure 109/62 Pulse Oximetry 92 L 92 L 10/19/18 09:00 10/19/18 10:00 10/19/18 11:00 Temperature Pulse Rate 94 H 76 76 Respiratory Rate Blood Pressure Pulse Oximetry Labs: Laboratory Results - last 12 hr 10/19/18 10/19/18 07:34 12:12 POC Glucose 149 H 151 H Result Diagrams: 10/18/18 04:50 10/18/18 04:50 Imaging: Thoracic Aorta CT 10/10/18 13:20 CONCLUSION: Negative study Carotid Doppler Study 10/13/18 11:30 CONCLUSION: Negative examination for a hemodynamically significant carotid stenosis. Rigo Flowers MD FACR Lower Extremity Ultrasound 10/13/18 11:30 CONCLUSION: 1. Venous mapping study as described. Venous Doppler Study 10/13/18 11:30 CONCLUSION: 1. Negative for deep venous thrombosis Chest X-Ray 10/16/18 05:00 CONCLUSION: No significant change Cardiovascular: RRR Pulmonary: CTA GI/: NABS, NT Incision: dry and intact - Plan (3) CAD (coronary artery disease) (4) S/P CABG x 3 Plan: Neuro: stable CV: on ASA, statin, BB hold Norvasc, gentle diuresis Resp: pulm toileting nebs ezpap GI: on PPI GI motility meds Endo: insulin sliding scale start metformin OOB/ PT transfer to stepdown (5) Diabetes mellitus Stop amiodarone D/C percocet and start tramadol Plan DC tomorrow (3) CAD (coronary artery disease) Qualifiers: Coronary Disease-Associated Artery/Lesion type: [place] artery [place] vs. transplanted heart: [place] heart (5) Diabetes mellitus Qualifiers: Diabetes mellitus type: type 2
[2018-10-20] MEDS: Polyethylene Glycol 3350 17 GM Packet PO SCH (09:30)
[2018-10-20] MEDS: Multivitamin/Minerals Therapeutic Tablet PO SCH (09:31)
[2018-10-20] MEDS: Insulin NovoLOG Aspart Correctional Sugar Inj SQ SCH ×4 (09:31→22:24)
[2018-10-20] MEDS: Docusate Sodium 100 MG Capsule PO SCH ×2 (09:31→20:45)
[2018-10-20] MEDS: Metoprolol Tartrate 25 MG Tablet PO SCH ×2 (09:32→20:46)
--- NOTE | 2018-10-20 10:00 | P.DS ---
Date of admission: 10/10/18 21:07 Primary care physician: Gordon Nazario MD Attending physician on discharge: Gisella Leal Anticipated date of discharge: 10/20/18 Brief History from admission: This patient is a 68 y/o Male with a dx of HTN, DLD, obesity who presents to the ED with complaints of upper back pain between his shoulder blades that he rates a 3/10. He says that he started working out recently and thought the pain was because of the exercise. He says his blood pressure was elevated systolic slightly above 200 while he was at home. Denies any sob, no nausea or vomitng. No abd pain. No other complaints. He says the main reason he came in was because of the elevated blood pressure. PMH HTN, DLD Fam Hx cabg in his father in his 60s, mother had cabg in her 80s Social hx smoked 3 ppd for 6 yrs then quit 40 yrs ago, ETOH rarely, no hx of drug use Surg hx none This is a 68-year-old male; patient of Dr. Gordon Nazario and also Dr. Berry, who presented to the emergency department with some upper back pain, which was between his shoulder blades. He started working out at the gym a couple of times and thought that the pain was due to his exercise, but he woke up at 3 a.m. with this pain in his back and also took his blood pressure, which was over 200. He tried to go back to bed, woke his up and presented to the emergency department. The patient's blood pressure on arrival was 201/98. He had other workup to include a thoracic aorta CT, which was negative for dissection; relatively negative study. His lab work did come back ruling him in for a non-STEMI with a troponin of 1.83. The patient underwent further evaluation to include a 2-D echo, which showed an ejection fraction of 55%-60%, some trace aortic insufficiency, otherwise unremarkable. Cardiac catheterization revealed proximal LAD 80%, the diagonal was 80%, the OM was 90% , the RCA 100%. We were consulted to evaluate for coronary artery bypass grafting. Patient update on day of discharge: pt stable on room air, pain controlled NSR DS: Diagnosis - Discharge Diagnosis (1) NSTEMI (non-ST elevated myocardial infarction) Status: Acute (2) Hypertensive urgency Status: Acute (3) CAD (coronary artery disease) Status: Acute (4) S/P CABG x 3 Status: Acute (5) Diabetes mellitus Status: Chronic DS: Medications - Discharge Medications Prescriptions: amiodarone 200 mg PO Q12H #28 tab aspirin 81 mg PO DAILY #100 tab docusate sodium [DOK] 100 mg PO BID #60 cap metformin [Glucophage] 500 mg PO BIDPC #60 tab metoprolol tartrate 25 mg PO BID #60 tab zmgplzfa-eidu-UA-calcium-mins [Thera M Plus (ferrous fumarat)] 1 tab PO DAILY # 30 tab oxycodone-acetaminophen 1 tab PO Q4H PRN #40 tab PRN Reason: Pain Scale 1 To 5 DS: Summary Hospital Course: Date of procedure: 10/15/18 Preoperative Diagnosis (1) CAD (coronary artery disease (2) NSTEMI (non-ST elevated myocardial infarction same Procedure: CABG x 3 ALBRIGHT to LAD - fair SVG to OM - good SVG to PDA - good L EVH extubated after surgery crystalloid 2800cc, 750cc cell saver, 200cc EBL 10/16 pt up in chair, pulm toileting encouraged gentle diuresis start BB, on amio, statin , ASA Normal EF transfer to stepdown 10/17/18 doing well. Frank replaced for urinary retention 10/18/18 Patient with low grade fever last night. No BM yet No ambulating well 10/19/18 c/o nausea this morning and fatigue 10/20 no further nausea amiodarone was dc - Time Spent with Patient Total time spent providing and/or coordinating discharge services: Greater than 30 minutes - Quality: VTE Deep Vein Thrombosis/Pulmonary Embolism Present on Admission: No Exam Vital signs: Vital Signs 10/19/18 10:00 10/19/18 11:00 10/19/18 12:00 Temperature 98.8 F Pulse Rate 76 78 80 Respiratory Rate 18 Blood Pressure 111/56 L Pulse Oximetry 93 L 10/19/18 13:00 10/19/18 14:00 10/19/18 15:00 Temperature 98.2 F Pulse Rate 74 76 85 Respiratory Rate 18 Blood Pressure 120/67 Pulse Oximetry 93 L 10/19/18 16:00 10/19/18 17:00 10/19/18 18:00 Temperature Pulse Rate 84 84 88 Respiratory Rate Blood Pressure Pulse Oximetry 10/19/18 19:00 10/19/18 19:55 10/19/18 20:00 Temperature 98.9 F Pulse Rate 94 H 94 H 95 H Respiratory Rate 20 Blood Pressure 124/58 L Pulse Oximetry 97 97 10/19/18 21:00 10/19/18 21:32 10/19/18 22:00 Temperature Pulse Rate 94 H 86 Respiratory Rate Blood Pressure Pulse Oximetry 97 10/20/18 00:00 10/20/18 00:46 10/20/18 01:00 Temperature 98.9 F Pulse Rate 74 74 75 Respiratory Rate 20 Blood Pressure 105/62 Pulse Oximetry 98 10/20/18 02:00 10/20/18 03:00 10/20/18 04:00 Temperature 98.8 F Pulse Rate 75 75 79 Respiratory Rate 20 Blood Pressure 105/62 Pulse Oximetry 98 10/20/18 05:00 10/20/18 06:00 Temperature Pulse Rate 75 83 Respiratory Rate Blood Pressure Pulse Oximetry Intake & Output 10/19/18 10/20/18 10/20/18 18:59 06:59 18:59 Intake Total 740 / 740 420 / 420 1050 / 1050 Output Total 1000 / 1000 850 / 850 Balance -260 / -260 -430 / -430 1050 / 1050 Weight 127.6 kg Intake: IV 1050 / 1050 NS Inj 1,000 ML @ 100 mls/hr IV 1000 / 1000 .CONT .Q10H [facility] Rx#:[id number] Ancef 2 GM Premix Inj 2 gm In 50 / 50 50 ml @ 100 mls/hr IV.SIG [employer] [facility]IS Rx#:[id number] Oral 740 / 740 420 / 420 Output: Urine 1000 / 1000 850 / 850 Other: Date of Last Bowel Movement 10/18/18 - Constitutional no acute distress - Routine HEENT Exam Head: Present: normocephalic, atraumatic, scalp tenderness Eye: Present: EOMI ENT: Present: mucous membranes moist - Routine Chest/Breast/Axilla Exam Chest wall: Present: tenderness - Routine Cardiovascular Exam Present: RRR, S1, S2 - Routine Abdominal Exam Present: soft, normoactive bowel sounds - Routine Extremities Exam Present: full ROM, pulses intact - Routine Skin Exam Present: intact, wounds Comments: prevena dressing to chest - Routine Neurological Exam Present: alert, oriented X3, CN II-XII intact Results Procedures completed during hospitalization: same Date of procedure: 10/15/18 Procedure: CABG x 3 ALBRIGHT to LAD - fair SVG to OM - good SVG to PDA - good EVH Labs on day of discharge: Labs from last 24 hours 10/19/18 10/19/18 10/19/18 20:26 17:33 12:12 POC Glucose 166 H 134 H 151 H - Impressions ITS Impressions Thoracic Aorta CT 10/10/18 13:20 CONCLUSION: Negative study Carotid Doppler Study 10/13/18 11:30 CONCLUSION: Negative examination for a hemodynamically significant carotid stenosis. Rigo Flowers MD FACR Lower Extremity Ultrasound 10/13/18 11:30 CONCLUSION: 1. Venous mapping study as described. Venous Doppler Study 10/13/18 11:30 CONCLUSION: 1. Negative for deep venous thrombosis Chest X-Ray 10/16/18 05:00 CONCLUSION: No significant change Discharge Plan - Discharge Disposition Patient Disposition: Disch W/Home Health Service - Discharge Condition Condition: Stable - Discharge Order Discharge Orders: Discharge Order (Routine); Ordered 10/20/18 Ordered By: Isabel Wagner ED Use Only Admit Order (Routine); Ordered 10/10/18 Ordered By: Dina Nova - Discharge Details Anticipated Discharge Date: 10/20/18 - Physicians Team Primary Care Provider: Gordon Nazario V Attending Provider: Gisella Leal Other Providers: Giovanny Berry DO ; Hari Wilkes MD
[2018-10-21] MEDS: Polyethylene Glycol 3350 17 GM Packet PO SCH (09:03)
[2018-10-21] MEDS: Multivitamin/Minerals Therapeutic Tablet PO SCH (09:03)
[2018-10-21] MEDS: Metoprolol Tartrate 25 MG Tablet PO SCH (09:03)
[2018-10-21] MEDS: Docusate Sodium 100 MG Capsule PO SCH (09:03)
[2018-10-21] MEDS: Insulin NovoLOG Aspart Correctional Sugar Inj SQ SCH ×2 (09:04→12:08)
--- NOTE | 2018-10-21 09:17 | P.PNCV ---
- Note Subjective/Hospital Course: This is a 68-year-old male; patient of Dr. Gordon Nazario and also Dr. Berry, who presented to the emergency department with some upper back pain, which was between his shoulder blades. He started working out at the gym a couple of times and thought that the pain was due to his exercise, but he woke up at 3 a.m. with this pain in his back and also took his blood pressure, which was over 200. He tried to go back to bed, woke his up and presented to the emergency department. The patient's blood pressure on arrival was 201/98. He had other workup to include a thoracic aorta CT, which was negative for dissection; relatively negative study. His lab work did come back ruling him in for a non-STEMI with a troponin of 1.83. The patient underwent further evaluation to include a 2-D echo, which showed an ejection fraction of 55%-60%, some trace aortic insufficiency, otherwise unremarkable. Cardiac catheterization revealed proximal LAD 80%, the diagonal was 80%, the OM was 90% , the RCA 100%. We were consulted to evaluate for coronary artery bypass grafting. PAST MEDICAL HISTORY: Includes morbid obesity, chronic bilateral knee pain, hypertension, recently diagnosed diabetes mellitus. Date of procedure: 10/15/18 Preoperative Diagnosis (1) CAD (coronary artery disease (2) NSTEMI (non-ST elevated myocardial infarction same Procedure: CABG x 3 ALBRIGHT to LAD - fair SVG to OM - good SVG to PDA - good L EVH extubated after surgery crystalloid 2800cc, 750cc cell saver, 200cc EBL 10/16 pt up in chair, pulm toileting encouraged gentle diuresis start BB, on amio, statin , ASA Normal EF transfer to stepdown 10/17/18 doing well. Frank replaced for urinary retention 10/18/18 Patient with low grade fever last night. No BM yet No ambulating well 10/19/18 c/o nausea this morning and fatigue 10/20 discharge summary completed 10/21 pt on room air will check lbs , if stable dc home Objective: Vital Signs - 24 hr 10/20/18 10:00 10/20/18 11:00 10/20/18 12:00 Temperature 97.9 F Pulse Rate 87 77 87 Respiratory Rate 20 Blood Pressure 126/74 Pulse Oximetry 97 10/20/18 13:00 10/20/18 15:00 10/20/18 15:53 Temperature 98 F Pulse Rate 82 103 H Respiratory Rate 18 Blood Pressure 119/65 Pulse Oximetry 92 L 96 10/20/18 16:00 10/20/18 17:00 10/20/18 17:57 Temperature Pulse Rate 97 H 93 H 106 H Respiratory Rate Blood Pressure Pulse Oximetry 10/20/18 19:00 10/20/18 20:00 10/20/18 21:00 Temperature 97.6 F Pulse Rate 96 H 96 H 94 H Respiratory Rate 18 Blood Pressure 103/60 Pulse Oximetry 92 L 92 L 10/20/18 22:00 10/20/18 23:00 10/21/18 00:00 Temperature 99.3 F Pulse Rate 86 86 81 Respiratory Rate 18 Blood Pressure 107/59 L Pulse Oximetry 94 L 10/21/18 01:00 10/21/18 02:00 10/21/18 03:00 Temperature 97.6 F Pulse Rate 83 78 78 Respiratory Rate 18 Blood Pressure 104/68 Pulse Oximetry 92 L 10/21/18 04:00 10/21/18 05:00 10/21/18 06:00 Temperature Pulse Rate 78 74 74 Respiratory Rate Blood Pressure Pulse Oximetry 10/21/18 07:00 10/21/18 07:24 Temperature 98.4 F Pulse Rate 77 Respiratory Rate 20 Blood Pressure 98/60 L Pulse Oximetry 90 L 90 L Labs: Laboratory Results - last 12 hr 10/20/18 10/21/18 20:53 07:18 POC Glucose 104 124 H Result Diagrams: 10/18/18 04:50 10/18/18 04:50 - Plan (3) CAD (coronary artery disease) (4) S/P CABG x 3 Plan: Neuro: stable CV: on ASA, statin, BB hold Norvasc, gentle diuresis Resp: pulm toileting nebs ezpap GI: on PPI GI motility meds Endo: insulin sliding scale start metformin OOB/ PT transfer to stepdown (5) Diabetes mellitus (3) CAD (coronary artery disease) Qualifiers: Coronary Disease-Associated Artery/Lesion type: ione artery [place] vs. transplanted heart: ione heart (5) Diabetes mellitus Qualifiers: Diabetes mellitus type: type 2
[2018-10-21] MEDS ORDERED: Furosemide 40 MG Tablet PO ONE (09:30)
[2018-10-21 10:31] LABS: Hematocrit 34.9 % (39.0-51.0); Hemoglobin 11.8 gm/dL (13.0-17.0); Mean Corpuscular HGB Conc 33.8 % (32.0-36.0); Mean Corpuscular Hemoglobin 29.7 pg (27.0-34.0); Mean Platelet Volume 7.7 fL (7.0-11.0); Platelet Count 252 th/mm3 (150-450); Red Blood Count 3.97 mil/mm3 (4.50-5.90); White Blood Count 10.2 th/mm3 (4.0-11.0)
[2018-10-21 10:54] LABS: Alanine Aminotransferase 65 U/L (12-78); Albumin 2.7 g/dL (3.4-5.0); Anion Gap 8 meq/L (5-15); Aspartate Aminotransferase 34 U/L (15-37); Blood Urea Nitrogen 32 mg/dL (7-18); Calcium 8.2 mg/dL (8.5-10.1); Carbon Dioxide 28.1 meq/L (21.0-32.0); Chloride 101 meq/L (98-107); Glomerular Filtration Rate 65 mL/min (>89); Glucose,Random 164 mg/dL (74-106); Potassium 3.7 meq/L (3.5-5.1); Sodium 137 meq/L (136-145)
[2018-10-21 10:56] LABS: Alkaline Phosphatase 79 U/L (45-117); Total Protein 6.4 g/dL (6.4-8.2)
[2018-10-21 11:37] VITALS: BP 105/64; RESP 18; TEMP 98.2; O2SAT 92
[2018-10-21 11:56] VITALS: PULSE 76
== END 2018-10-21 13:44 | disposition home health service (06) | DRG 234 ==
LOC: NEPD 13:04 → INTOOBSV 16:04 → NEDA 16:04 → NEPGCP 20:29 → HCIS 22:00 → HCVI 10-15 12:12 → HCPC 10-16 14:02
PROVIDERS: ADMIT Thoracic Surgery (Cardiothoracic Vascular Surgery); ATTEND Thoracic Surgery (Cardiothoracic Vascular Surgery)
DX: I16.1 Hypertensive emergency; M54.6 Pain in thoracic spine; I10 Essential (primary) hypertension; M25.562 Pain in left knee; I35.1 Nonrheumatic aortic (valve) insufficiency; Z68.37 Body mass index [BMI] 37.0-37.9, adult; I21.4 Non-ST elevation (NSTEMI) myocardial infarction; F32.9 Major depressive disorder, single episode, unspecified; E66.01 Morbid (severe) obesity due to excess calories; R50.9 Fever, unspecified; R33.9 Retention of urine, unspecified; Z87.891 Personal history of nicotine dependence; I25.10 Atherosclerotic heart disease of native coronary artery without angina pectoris; R11.0 Nausea; I45.10 Unspecified right bundle-branch block; Z79.899 Other long term (current) drug therapy; E11.9 Type 2 diabetes mellitus without complications; M25.561 Pain in right knee; Z82.49 Family history of ischemic heart disease and other diseases of the circulatory system; G89.29 Other chronic pain
CPT/HCPCS: 36430; 71010; 71020; 71045; 71046; 71275; 74175; 76937; 80048; 80053; 81001; 82150; 82272; 82550; 82948; 82962; 83036; 83690; 83735; 84484; 85014; 85025; 85027; 85610; 85730; 86850; 86900; 86901; 86923; 87641; 90774; 90784; 93005; 93306; 93458; 93880; 93965; 93970; 93998; 94002; 94010; 94150; 94640; 94650; 94651; 94656; 94664; 94665; 94667; 96374; 97110; 97116; 97162; 97530; 99152; 99285; C1769; C1893; C8952; J0131; J0690; J1644; J1815; J1817; J1940; J2150; J2250; J2270; J2370; J2405; J2440; J2704; J2720; J2765; J2930; J3010; J3370; J3475; J3480; J7030; J7050; J7120; P9016; P9045; P9047; Q9967